=== PATIENT | male | born 1960 | race Caucasian/White ===

== ENCOUNTER 2016-07-07 10:26 | Emergency (ER) | payer OTHER ==
[~2016-07-07] VITALS: Ht 177.8 cm; Wt 75.0 kg
[~2016-07-07 10:26] MED LIST: ASPI81TA19 PO; CLON.5 PO; FOLI1TAB4 PO; GABA300C5 PO; LEVO.075 PO; NITR1SUB3 SL; OXYC-395 PO; PANT40TA3 PO; SERO25TA PO; SERO300T PO; SERT-132 PO; VITA10003 PO
[2016-07-07 10:47] VITALS: BP 134/77; PULSE 94; RESP 18; TEMP 97.8; O2SAT 97
[2016-07-07] MEDS ORDERED: OXYC-395 PO (11:01)
--- NOTE | 2016-07-07 11:01 | PD ---
HPI Chief Complaint: Pain: Acute or Chronic Time Seen by Provider: 10:45 Travel History International Travel<30 days: No Contact w/Intl Traveler<30days: No Traveled to known affect area: No History of Present Illness HPI Patient is a 55-year-old male with history of metastatic pancreatic cancer, presents to emergency room for medication refill. Patient reports that his doctor tried to decrease his dose of oxycodone from 10 mg a 5 mg; reports that the 5 mg dose did not help with his chronic abdominal pain. Reports that he had to double his 5 mg dose of medications to help relief the symptoms. Patient reports that he ran out of his pain medication on Friday and called his doctor for refill, reports that could not get a hold of his doctor to refill his prescription. Reports that his abdominal pain is chronic, requests enough pain medications until he can see his primary care doctor on Friday. Patient with no other complaints. PFSH Past Medical History Hx Anticoagulant Therapy: Yes Arthritis: Yes Autoimmune Disease: No Bipolar Disorder: Yes Anxiety: Yes Depression: Yes Heart Rhythm Problems: No Cancer: Yes (pancreatic) Cardiac Catheterization: Yes Cardiovascular Problems: Yes ([place] X 2) High Cholesterol: Yes Chemotherapy: Yes (06/04/16) Chest Pain: Yes Congestive Heart Failure: No Diabetes: No Diminished Hearing: No Endocrine: No Gastrointestinal Disorders: Yes (BLOOD IN STOOL, OVER A YEAR AGO) Genitourinary: Yes Headaches: Yes Herniated Disk: Yes Hypertension: Yes (ON BP MEDS FOR HEART) Immune Disorder: No Implanted Vascular Access Dvce: Yes (XCELA POWER PORT TO LEFT CHEST October, ) Kidney Stones: Yes Musculoskeletal: Yes Neurologic: Yes Psychiatric: Yes Reproductive: No Respiratory: No Immunizations Current: Yes Migraines: Yes Myocardial Infarction: Yes Pancreatitis: Yes Thyroid Disease: Yes Ulcer: No Influenza Vaccination: Yes ?: Not Past Surgical History Abdominal Surgery: Yes Body Medical Devices: CARDIAC STENTS X2 Cardiac Surgery: Yes Cholecystectomy: Yes Coronary Stent: Yes (X 2) Ear Surgery: No Eye Surgery: No Genitourinary Surgery: No Gynecologic Surgery: No Joint Replacement: No Oral Surgery: Yes Pacemaker: No Tympanostomy Tube: Yes Other Surgery: Yes (whipple procedure j tube) Family History Family Myocardial Infarction: Yes (MOTHER) Social History Alcohol Use: No Tobacco Use: No (2 cigs) Substance Use: No Allergies-Medications (Allergen,Severity, Reaction): Coded Allergies: No Known Allergies (Unverified , 07/07/16) Reported Meds & Prescriptions Reported Meds & Active Scripts Active Oxycodone (Oxycodone HCl) 10 Mg Tab 10 Mg PO Q6H PRN 3 Days Reported Oxycodone (Oxycodone HCl) 10 Mg Tab 10 Mg PO Q4H PRN Sertraline (Sertraline HCl) 50 Mg Tab 150 Mg PO DAILY Seroquel (Quetiapine Fumarate) 300 Mg Tab 150 Mg PO HS Seroquel (Quetiapine Fumarate) 25 Mg Tab 25 Mg PO DAILY Pantoprazole (Pantoprazole Sodium) 40 Mg Tab 40 Mg PO BID Nitroglycerin SL (Nitroglycerin) 0.4 Mg Subl 0.4 Mg SL DIRECTED PRN ONE TABLET UNDER THE TONGUE NEEDED FOR CHEST PAIN, MAY REPEAT EVERY FIVE MINUTES FOR A TOTAL OF 3 DOSES OR CALL 911 IF NO RELIEF Synthroid (Levothyroxine Sodium) 75 Mcg Tab 75 Mcg PO DAILY Gabapentin 300 Mg Cap 300 Mg PO TID Folate (Folic Acid) 1 Mg Tab 1 Mg PO DAILY Klonopin (Clonazepam) 0.5 Mg Tab 0.5 Mg PO TID Vitamin D-3 (Cholecalciferol) 1,000 Unit Tab 1,000 Units PO DAILY Aspir-Low (Aspirin) 81 Mg Tabdr 1 Tab P-ARTICULR DAILY Review of Systems General / Constitutional: No: Fever Eyes: No: Visual changes HENT: No: Headaches Cardiovascular: No: Chest Pain or Discomfort Respiratory: No: Shortness of Breath Gastrointestinal: No: Abdominal Pain Genitourinary: No: Dysuria Musculoskeletal: No: Pain Skin: No Rash Neurologic: No: Weakness Psychiatric: No: Depression Endocrine: No: Polydipsia Hematologic/Lymphatic: No: Easy Bruising Physical Exam Narrative GENERAL: No acute distress, nontoxic SKIN: Warm and dry. HEAD: Atraumatic. Normocephalic. EYES: Pupils equal and round. No scleral icterus. No injection or drainage. ENT: No nasal bleeding or discharge. Mucous membranes pink and moist. CARDIOVASCULAR: Regular rate and rhythm. No murmur appreciated. RESPIRATORY: No accessory muscle use. Clear to auscultation. Breath sounds equal bilaterally. GASTROINTESTINAL: Abdomen soft, non-tender, nondistended. Hepatic and splenic margins not palpable. Data Data Last Documented VS Vital Signs Date Time Temp Pulse Resp B/P Pulse Ox O2 Delivery O2 Flow Rate FiO2 07/07/16 10:47 97.8 94 18 134/77 97 Orders Oxycodone (Roxicodone) (07/07/16 11:00) MDM Medical Decision Making Medical Screen Exam Complete: Yes Emergency Medical Condition: Yes Differential Diagnosis Metastatic pancreatic cancer, pancreatitis, medication refill Narrative Course 55-year-old male with history of metastatic pancreatic cancer, presents to emergency room for medication refill on pain medications. Patient reports that he will be able to see his primary care doctor on Friday and needs enough pain medications until then. Patient reports that pain is chronic in nature, patient does not want a workup in the emergency room, only request prescription for refill Diagnosis Primary Impression: Medication refill Additional Impression: Refill clinic medication management patient Patient Instructions: Narcotic given in the ED, General Instructions Additional Instructions: Please follow-up with your primary care doctor as soon as possible Do not drive or operate heavy machinery while taking pain medication Med/Other Pt SpecificInfo: Prescription(s) given Scripts Oxycodone 10 Mg Tab10 Mg PO Q6H PRN (PAIN) 3 Days Ref 0 Prov:Rosalind Samano DO 07/07/16 Disposition: 01 DISCHARGE HOME Condition: Rosalind Darby DO Jul 07, 2016 11:01
[2016-07-07 11:36] VITALS: RESP 18
== END 2016-07-07 11:36 | disposition home or self-care (01) ==
LOC: PHED 10:26
DX: Z76.0 Encounter for issue of repeat prescription (principal); G89.3 Neoplasm related pain (acute) (chronic); C25.9 Malignant neoplasm of pancreas, unspecified; C79.9 Secondary malignant neoplasm of unspecified site
CPT/HCPCS: 99283

== ENCOUNTER 2016-10-13 18:02 | Emergency (ER) | payer OTHER ==
[~2016-10-13] VITALS: Ht 177.8 cm; Wt 66.8 kg
[2016-10-13 18:10] VITALS: BP 109/86; PULSE 88; RESP 20; TEMP 98.2; O2SAT 98
[2016-10-13] MEDS ORDERED: NUTRLIQ (18:25)
[2016-10-13] MEDS ORDERED: LACT10SO PO (18:25)
[2016-10-13] MEDS ORDERED: CARV6.252 PO (18:25)
[2016-10-13] MEDS ORDERED: CREON12 PO (18:25)
[2016-10-13] MEDS ORDERED: PROM12.54 PO (18:25)
[2016-10-13] MEDS ORDERED: MSIR15 PO (18:25)
[2016-10-13] MEDS ORDERED: LISI2.5T3 PO (18:25)
[2016-10-13] MEDS ORDERED: ONDA1TAB16 PO (18:25)
[2016-10-13] MEDS ORDERED: REGL10TA5 PO (18:25)
[2016-10-13] MEDS ORDERED: TRAM50TA PO ×2 (18:25→18:30)
[2016-10-13] MEDS ORDERED: MORPHINE SULFATE 4 MG/ML INJ IM ONE (18:30)
--- NOTE | 2016-10-13 18:36 | PD ---
HPI Chief Complaint: Pain: Acute or Chronic Time Seen by Provider: 18:32 Travel History International Travel<30 days: No Contact w/Intl Traveler<30days: No Traveled to known affect area: No History of Present Illness HPI 55-year-old male with history of pancreatic cancer and gastroparesis presents the emergency department requesting help with his pain medications. Patient has a prescription for morphine but he is unable to fill it until October 16, as he used a few extra during this past month. He is not requesting refill of his morphine, but is requesting a refill of his tramadol which she has been using to help in the interim. Patient has no other acute complaints. He states he attempted to call his oncologist's office, but he is out of the office until . He has no known drug allergies. PFSH Past Medical History Hx Anticoagulant Therapy: Yes Arthritis: Yes Autoimmune Disease: No Bipolar Disorder: Yes Anxiety: Yes Depression: Yes Heart Rhythm Problems: No Cancer: Yes (pancreatic) Cardiac Catheterization: Yes Cardiovascular Problems: Yes ([place] X 2) High Cholesterol: Yes Chemotherapy: Yes (06/04/16) Chest Pain: Yes Congestive Heart Failure: No Diabetes: No Diminished Hearing: No Endocrine: No Gastrointestinal Disorders: Yes (BLOOD IN STOOL, OVER A YEAR AGO) Genitourinary: Yes Headaches: Yes Herniated Disk: Yes Hypertension: Yes (ON BP MEDS FOR HEART) Immune Disorder: No Implanted Vascular Access Dvce: Yes (XCELA POWER PORT TO LEFT CHEST October, ) Kidney Stones: Yes Musculoskeletal: Yes Neurologic: Yes Psychiatric: Yes Reproductive: No Respiratory: No Immunizations Current: Yes Migraines: Yes Myocardial Infarction: Yes Pancreatitis: Yes Thyroid Disease: Yes Ulcer: No Past Surgical History Abdominal Surgery: Yes Body Medical Devices: CARDIAC STENTS X2 Cardiac Surgery: Yes Cholecystectomy: Yes Coronary Stent: Yes (X 2) Ear Surgery: No Eye Surgery: No Genitourinary Surgery: No Gynecologic Surgery: No Joint Replacement: No Oral Surgery: Yes Pacemaker: No Tympanostomy Tube: Yes Other Surgery: Yes (whipple procedure j tube) Family History Family Myocardial Infarction: Yes (MOTHER) Social History Alcohol Use: No Tobacco Use: No (2 cigs) Substance Use: No Allergies-Medications (Allergen,Severity, Reaction): Coded Allergies: No Known Allergies (Unverified , 10/13/16) Reported Meds & Prescriptions Reported Meds & Active Scripts Active Tramadol (Tramadol HCl) 50 Mg Tab 100 Mg PO Q8H PRN 5 Days Reported Tramadol (Tramadol HCl) 50 Mg Tab Unknown Dose PO Q4H PRN Nutren 1.0 (Nutritional Supplements) 1 Liq Liq Reglan (Metoclopramide HCl) 10 Mg Tab 10 Mg PO DAILY Promethazine (Promethazine HCl) 12.5 Mg Tab 12.5 Mg PO Q6H PRN Ondansetron (Ondansetron HCl) 4 Mg Tab 4 Mg PO Q8H PRN Morphine IR (Morphine Sulfate) 15 Mg Tab 15 Mg PO Q4H Lisinopril 2.5 Mg Tab 2.5 Mg PO DAILY Lactulose Liq (Lactulose) 10 Gm/15 Ml Soln 30 Ml PO Q6H Creon (Amylase/Lipase/Protease) 12,000-38,000-60,000 Units Cap 1 Cap PO TIDPC Carvedilol 6.25 Mg Tab 6.25 Mg PO DAILY Sertraline (Sertraline HCl) 50 Mg Tab 200 Mg PO DAILY Seroquel (Quetiapine Fumarate) 25 Mg Tab 100 Mg PO HS Pantoprazole (Pantoprazole Sodium) 40 Mg Tab 40 Mg PO DAILY Nitroglycerin SL (Nitroglycerin) 0.4 Mg Subl 0.4 Mg SL DIRECTED PRN ONE TABLET UNDER THE TONGUE NEEDED FOR CHEST PAIN, MAY REPEAT EVERY FIVE MINUTES FOR A TOTAL OF 3 DOSES OR CALL 911 IF NO RELIEF Synthroid (Levothyroxine Sodium) 75 Mcg Tab 75 Mcg PO DAILY Folate (Folic Acid) 1 Mg Tab 1 Mg PO DAILY Klonopin (Clonazepam) 0.5 Mg Tab 0.5 Mg PO TID Vitamin D-3 (Cholecalciferol) 1,000 Unit Tab 1,000 Units PO DAILY Aspir-Low (Aspirin) 81 Mg Tabdr 1 Tab P-ARTICULR DAILY Review of Systems Except as stated in HPI: all other systems reviewed are Neg General / Constitutional: No: Fever Eyes: No: Visual changes HENT: No: Headaches Cardiovascular: No: Chest Pain or Discomfort Respiratory: No: Shortness of Breath Gastrointestinal: No: Abdominal Pain Genitourinary: No: Dysuria Musculoskeletal: No: Pain Skin: No Rash Neurologic: No: Weakness Psychiatric: No: Depression Endocrine: No: Polydipsia Hematologic/Lymphatic: No: Easy Bruising Physical Exam Narrative GENERAL: Patient appears uncomfortable SKIN: Warm and dry. Poor color. Normal turgor. HEAD: Atraumatic. Normocephalic. EYES: Pupils equal and round. No scleral icterus. No injection or drainage. ENT: No nasal bleeding or discharge. Mucous membranes pink and moist. Pharynx is normal. NECK: Trachea midline. Supple and nontender CARDIOVASCULAR: Regular rate and rhythm. RESPIRATORY: No accessory muscle use. Clear to auscultation. Breath sounds equal bilaterally. MUSCULOSKELETAL: Extremities without clubbing, cyanosis, or edema. No obvious deformities. NEUROLOGICAL: Awake and alert. No obvious cranial nerve deficits. Motor grossly within normal limits. Five out of 5 muscle strength in the arms and legs. Normal speech. PSYCHIATRIC: Appropriate mood and affect; insight and judgment normal. Data Data Last Documented VS Vital Signs Date Time Temp Pulse Resp B/P Pulse Ox O2 Delivery O2 Flow Rate FiO2 10/13/16 18:10 98.2 88 20 109/86 98 Orders Morphine Inj (Morphine Inj) (10/13/16 18:30) [facility] Medical Decision Making Medical Screen Exam Complete: Yes Emergency Medical Condition: Yes Medical Record Reviewed: Yes Differential Diagnosis Chronic pain secondary to pancreatic cancer and gastroparesis. Need for pain management. Medication refill. Narrative Course Patient is medically stable at time of exam. Patient is discussed with Dr. Harrison, and plan agreed upon. Patient is given 4 mg morphine IM. Patient is given a prescription for tramadol to milligrams tabs he is to take 2 tabs 3 times daily when necessary he was given #30. Patient is to follow-up with his regular doctor as needed. Diagnosis Primary Impression: Medication refill Additional Impression: Recurrent pancreatitis Patient Instructions: General Instructions Additional Instructions: Patient is discussed with Dr. Harrison, and plan agreed upon. Patient is given 4 mg morphine IM. Patient is given a prescription for tramadol to milligrams tabs he is to take 2 tabs 3 times daily when necessary he was given #30. Patient is to follow-up with his regular doctor as needed. Scripts Tramadol 50 Mg Swe522 Mg PO Q8H PRN (PAIN) 5 Days Ref 0 Prov:Vitaliy Matson MD 10/13/16 Disposition: 01 DISCHARGE HOME Condition: Stable Ramses Douglass Oct 13, 2016 18:36
== END 2016-10-13 19:02 | disposition home or self-care (01) ==
LOC: PHEFT 18:02
DX: G89.3 Neoplasm related pain (acute) (chronic) (principal); C25.9 Malignant neoplasm of pancreas, unspecified; K86.1 Other chronic pancreatitis; Z76.0 Encounter for issue of repeat prescription
CPT/HCPCS: 96372; 99283; J2270

== ENCOUNTER 2016-10-15 10:51 | Emergency (ER) | payer OTHER ==
[~2016-10-15] VITALS: Ht 177.8 cm; Wt 75.0 kg
[~2016-10-15 10:51] MED LIST changes: +CARV6.252 PO; +CREON12 PO; -GABA300C5 PO; +LACT10SO PO; +LISI2.5T3 PO; +MSIR15 PO; +NUTRLIQ; +ONDA1TAB16 PO; -OXYC-395 PO; +PROM12.54 PO; +REGL10TA5 PO; -SERO300T PO; +TRAM50TA PO
[2016-10-15 10:54] VITALS: BP 115/77; PULSE 82; RESP 24; TEMP 97.9; O2SAT 100
--- NOTE | 2016-10-15 11:36 | PD ---
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 Patient has history of pancreatic cancer and status post J-tube placement for feeding. Patient states that he was coughing and the balloon displace outside of the abdomen wall this morning. Patient denies any other problem. PFSH Past Medical History Hx Anticoagulant Therapy: Yes Arthritis: Yes Autoimmune Disease: No Bipolar Disorder: Yes Anxiety: Yes Depression: Yes Heart Rhythm Problems: No Cancer: Yes (pancreatic) Cardiac Catheterization: Yes Cardiovascular Problems: Yes ([place] X 2) High Cholesterol: Yes Chemotherapy: Yes (06/04/16) Chest Pain: Yes Congestive Heart Failure: No Diabetes: No Diminished Hearing: No Endocrine: No Gastrointestinal Disorders: Yes (BLOOD IN STOOL, OVER A YEAR AGO) Genitourinary: Yes Headaches: Yes Herniated Disk: Yes Hypertension: Yes (ON BP MEDS FOR HEART) Immune Disorder: No Implanted Vascular Access Dvce: Yes (XCELA POWER PORT TO LEFT CHEST October, ) Kidney Stones: Yes Musculoskeletal: Yes Neurologic: Yes Psychiatric: Yes Reproductive: No Respiratory: No Immunizations Current: Yes Migraines: Yes Myocardial Infarction: Yes Pancreatitis: Yes Thyroid Disease: Yes Ulcer: No Past Surgical History Abdominal Surgery: Yes (whipple) Body Medical Devices: CARDIAC STENTS X2 Cardiac Surgery: Yes Cholecystectomy: Yes Coronary Stent: Yes (X 2) Ear Surgery: No Eye Surgery: No Genitourinary Surgery: No Gynecologic Surgery: No Joint Replacement: No Oral Surgery: Yes Pacemaker: No Tympanostomy Tube: Yes Other Surgery: Yes (whipple procedure j tube) Social History Alcohol Use: No Tobacco Use: Yes Substance Use: No Allergies-Medications (Allergen,Severity, Reaction): Coded Allergies: No Known Allergies (Unverified , 10/15/16) Reported Meds & Prescriptions Reported Meds & Active Scripts Active Tramadol (Tramadol HCl) 50 Mg Tab 100 Mg PO Q8H PRN 5 Days Reported Tramadol (Tramadol HCl) 50 Mg Tab Unknown Dose PO Q4H PRN Nutren 1.0 (Nutritional Supplements) 1 Liq Liq Reglan (Metoclopramide HCl) 10 Mg Tab 10 Mg PO DAILY Promethazine (Promethazine HCl) 12.5 Mg Tab 12.5 Mg PO Q6H PRN Ondansetron (Ondansetron HCl) 4 Mg Tab 4 Mg PO Q8H PRN Morphine IR (Morphine Sulfate) 15 Mg Tab 15 Mg PO Q4H Lisinopril 2.5 Mg Tab 2.5 Mg PO DAILY Lactulose Liq (Lactulose) 10 Gm/15 Ml Soln 30 Ml PO Q6H Creon (Amylase/Lipase/Protease) 12,000-38,000-60,000 Units Cap 1 Cap PO TIDPC Carvedilol 6.25 Mg Tab 6.25 Mg PO DAILY Sertraline (Sertraline HCl) 50 Mg Tab 200 Mg PO DAILY Seroquel (Quetiapine Fumarate) 25 Mg Tab 100 Mg PO HS Pantoprazole (Pantoprazole Sodium) 40 Mg Tab 40 Mg PO DAILY Nitroglycerin SL (Nitroglycerin) 0.4 Mg Subl 0.4 Mg SL DIRECTED PRN ONE TABLET UNDER THE TONGUE NEEDED FOR CHEST PAIN, MAY REPEAT EVERY FIVE MINUTES FOR A TOTAL OF 3 DOSES OR CALL 911 IF NO RELIEF Synthroid (Levothyroxine Sodium) 75 Mcg Tab 75 Mcg PO DAILY Folate (Folic Acid) 1 Mg Tab 1 Mg PO DAILY Klonopin (Clonazepam) 0.5 Mg Tab 0.5 Mg PO TID Vitamin D-3 (Cholecalciferol) 1,000 Unit Tab 1,000 Units PO DAILY Aspir-Low (Aspirin) 81 Mg Tabdr 1 Tab P-ARTICULR DAILY Review of Systems General / Constitutional: No: Fever Eyes: No: Visual changes HENT: No: Headaches Cardiovascular: No: Chest Pain or Discomfort Respiratory: No: Shortness of Breath Gastrointestinal: No: Abdominal Pain Genitourinary: No: Dysuria Musculoskeletal: No: Pain Skin: No Rash Neurologic: No: Weakness Psychiatric: No: Depression Endocrine: No: Polydipsia Hematologic/Lymphatic: No: Easy Bruising Physical Exam Narrative GENERAL: Well-nourished, well-developed patient. SKIN: Focused skin assessment warm/dry. HEAD: Normocephalic. EYES: No scleral icterus. No injection or drainage. NECK: Supple, trachea midline. No JVD or lymphadenopathy. CARDIOVASCULAR: Regular rate and rhythm without murmurs, gallops, or rubs. RESPIRATORY: Breath sounds equal bilaterally. No accessory muscle use. GASTROINTESTINAL: Abdomen soft. The balloon of the J-tube was lying on top of the abdominal wall. MUSCULOSKELETAL: No cyanosis, or edema. BACK: Nontender without obvious deformity. No CVA tenderness. Data Data Last Documented VS Vital Signs Date Time Temp Pulse Resp B/P Pulse Ox O2 Delivery O2 Flow Rate FiO2 10/15/16 10:54 97.9 82 24 115/77 100 Room Air MDM Medical Decision Making Medical Screen Exam Complete: Yes Emergency Medical Condition: Yes Differential Diagnosis Differential diagnosis including J-tube displacement. Narrative Course 55-year-old male with J-tube displacement this morning after coughing. The balloon is lying on top of the skin on the left upper quadrant of the abdomen. J-tube otherwise in place. The balloon was deflated and the J-tube was advanced back into the abdomen. Patient states that he has a lot of pain when I tried to inflate the balloon. When the balloon was deflated only 3 cc in the balloon. 2 cc of fluid was inflated into the balloon and J-tube was taped securely to the abdominal wall. Patient's advised to follow-up with his GI specialist for follow-up. Diagnosis Primary Impression: Dislodged jejunostomy tube Patient Instructions: General Instructions Additional Instructions: Follow with GI specialist. Return if any problem. Med/Other Pt SpecificInfo: No Change to Meds Disposition: 01 DISCHARGE HOME Condition: Stable Hernesto Sheehan MD Oct 15, 2016 11:36
== END 2016-10-15 11:43 | disposition home or self-care (01) ==
LOC: NEPD 10:51
DX: K94.13 Enterostomy malfunction (principal)
CPT/HCPCS: 99282

== ENCOUNTER 2016-10-22 13:56 | Inpatient (IN) | payer OTHER, MEDICARE ==
[2016-10-22 13:58] VITALS: BP 129/87; PULSE 75; RESP 20; TEMP 98.7; O2SAT 100
--- NOTE | 2016-10-22 14:43 | PD ---
Physical Exam Time Seen by Provider: 14:39 Narrative 55 year old male presents to ED for evaluation of his J/G tube. Saw Dr. Francis his GI specialist yesterday and states that the PEG site is infected and will likely need replaced. He is on doxycycline for this. States that the balloon has popped today. Reports 9/10 burning pain; constant. Denies fever or chills. Has medical history of pancreatic cancer, in remission; gastroparesis; otherwise healthy per pt. Data Data Last Documented VS Vital Signs Date Time Temp Pulse Resp B/P Pulse Ox O2 Delivery O2 Flow Rate FiO2 10/22/16 13:58 98.7 75 20 129/87 100 MDM Medical Record Reviewed: Yes Supervised Visit with CHRISTINA: No Narrative Course 55 year old male presents to ED for evaluation of his J/G tube. Appears uncomfortable but not in distress. VSS Condition: Stable [place] Oct 22, 2016 14:42
[2016-10-22 16:29] VITALS: BP 127/86; PULSE 64; RESP 16; O2SAT 99
[2016-10-22] MEDS ORDERED: MIDAZOLAM HCL 5 MG/5 ML VIAL ONE (18:13)
[2016-10-22] MEDS ORDERED: fentaNYL CITRATE 250 MCG/5 ML AMP ONE (18:13)
[2016-10-22] MEDS ORDERED: diphenhydrAMINE HCL 50 MG/ML VIAL ONE (18:29)
--- NOTE | 2016-10-22 18:33 | PD ---
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 Presents with G J-tube complications. He has gastroparesis. He's eating some associates the majority of his nutrition and hydration through his GJ tube. It was last replaced in June by interventional radiology. Several days ago he felt like the balloon had popped out through the skin. It was deflated replaced and then reinflated. The J-tube still appeared to be positioned of the jejunum. It never fully came out. He was having some discomfort at his GI doctors office of a reduced the balloon size some. Today he noticed his balloon popped and he was having some additional discomfort. He also is been having more drainage from around the G-tube site and so his doctor started him on doxycycline. He called his GI doctor and they could not see him for several days. History Past Medical History Narrative Medical Bipolar disorder Coronary disease, [place] Metastatic Pancreatic cancer, status post resection GERD, gastroparesis Hypertension Hyperlipidemia Hypothyroidism Thyroid disease Social History Alcohol Use: No Tobacco Use: Yes Allergies-Medications (Allergen,Severity, Reaction): Coded Allergies: No Known Allergies (Unverified , 10/22/16) Reported Meds & Prescriptions Reported Meds & Active Scripts Active Tramadol (Tramadol HCl) 50 Mg Tab 100 Mg PO Q8H PRN 5 Days Reported Tramadol (Tramadol HCl) 50 Mg Tab Unknown Dose PO Q4H PRN Nutren 1.0 (Nutritional Supplements) 1 Liq Liq Reglan (Metoclopramide HCl) 10 Mg Tab 10 Mg PO DAILY Promethazine (Promethazine HCl) 12.5 Mg Tab 12.5 Mg PO Q6H PRN Ondansetron (Ondansetron HCl) 4 Mg Tab 4 Mg PO Q8H PRN Morphine IR (Morphine Sulfate) 15 Mg Tab 15 Mg PO Q4H Lisinopril 2.5 Mg Tab 2.5 Mg PO DAILY Lactulose Liq (Lactulose) 10 Gm/15 Ml Soln 30 Ml PO Q6H Creon (Amylase/Lipase/Protease) 12,000-38,000-60,000 Units Cap 1 Cap PO TIDPC Carvedilol 6.25 Mg Tab 6.25 Mg PO DAILY Sertraline (Sertraline HCl) 50 Mg Tab 200 Mg PO DAILY Seroquel (Quetiapine Fumarate) 25 Mg Tab 100 Mg PO HS Pantoprazole (Pantoprazole Sodium) 40 Mg Tab 40 Mg PO DAILY Nitroglycerin SL (Nitroglycerin) 0.4 Mg Subl 0.4 Mg SL DIRECTED PRN ONE TABLET UNDER THE TONGUE NEEDED FOR CHEST PAIN, MAY REPEAT EVERY FIVE MINUTES FOR A TOTAL OF 3 DOSES OR CALL 911 IF NO RELIEF Synthroid (Levothyroxine Sodium) 75 Mcg Tab 75 Mcg PO DAILY Folate (Folic Acid) 1 Mg Tab 1 Mg PO DAILY Klonopin (Clonazepam) 0.5 Mg Tab 0.5 Mg PO TID Vitamin D-3 (Cholecalciferol) 1,000 Unit Tab 1,000 Units PO DAILY Aspir-Low (Aspirin) 81 Mg Tabdr 1 Tab P-ARTICULR DAILY Review of Systems Except as stated in HPI: all other systems reviewed are Neg Physical Exam Narrative GENERAL: Well-appearing 55 year-old woman, no acute distress. SKIN: Focused skin assessment warm/dry. CARDIOVASCULAR: Regular rate and rhythm. No murmur appreciated. RESPIRATORY: No accessory muscle use. Clear to auscultation. Breath sounds equal bilaterally. GASTROINTESTINAL: Abdomen is flat and soft. Multiple well-healed surgical scars. GJ-tube in the left costal margin. The balloon is clearly deflated. Still appears to be in place. There is some drainage around the wound. I don' t see any obvious erythema or redness or evidence of active infection. There is a little bit of tenderness at the site. MUSCULOSKELETAL: No obvious deformities. Data Data Last Documented VS Vital Signs Date Time Temp Pulse Resp B/P Pulse Ox O2 Delivery O2 Flow Rate FiO2 10/22/16 16:29 67 18 100 10/22/16 16:29 127/86 Room Air 10/22/16 13:58 98.7 Orders Change Of Gj-Tube (10/22/16 ) Midazolam Inj (Versed Inj) (10/22/16 18:13) Fentanyl Inj (Fentanyl Inj) (10/22/16 18:13) MDM Medical Decision Making Medical Screen Exam Complete: Yes Emergency Medical Condition: Yes Differential Diagnosis G J-tube malfunction, cellulitis, other Narrative Course Medical decision making 55 year-old man is having malfunctioning feeding tube. Some pain around the site. He is on antibiotics. I don't see any active infection now. He is dependent on the G J-tube for feeding and has gastroparesis and would not probably do well with just a G-tube. I spoke with radiology, and will be able to take them for G J-tube replacement. Diagnosis Primary Impression: Feeding tube dysfunction Additional Instructions: Continue feedings through J port. Continue routine G J-tube care. Follow-up with your side laster tack as planned. Return to the emergency department for any new or worsening symptoms. Med/Other Pt SpecificInfo: No Change to Meds Disposition: 01 DISCHARGE HOME Condition: Stable Anuel Palm MD Oct 22, 2016 18:33
[2016-10-22] MEDS ORDERED: MIDAZOLAM HCL 2 MG/2 ML VIAL ONE (19:08)
[2016-10-22] MEDS ORDERED: SODIUM CHLOR 0.9% 1000 ML INJ 1,000 ML IV SCH (19:30)
--- NOTE | 2016-10-22 19:30 | PD.RAD ---
Post Procedure Progress Note Pre Procedure Diagnosis: (1) Dislodged jejunostomy tube (2) Feeding tube dysfunction Post Procedure Diagnosis: (1) Dislodged jejunostomy tube (2) Feeding tube dysfunction Procedure Date: Oct 22, 2016 Supervising Radiologist: Kai Long Proceduralist/Assist: Kalee Gonzalez, RT(R)(), Nataliya Diamond RT(R) Anesthesia: Local, Analgesia, Conscious Sedation Plan of Activity Patient to Unit: Other (ED) Patient Condition: Good See PACS Report for procedural detail/treatment Feeding Tube Gastrostomy Replacement (Unable to advance GJ. Aberrhent anatomy. ) Plan CT scan of abdomen to define anatomy Kai Long MD Oct 22, 2016 19:30
--- NOTE | 2016-10-22 19:32 | PD ---
Data Data Last Documented VS Vital Signs Date Time Temp Pulse Resp B/P Pulse Ox O2 Delivery O2 Flow Rate FiO2 10/22/16 16:29 67 18 100 10/22/16 16:29 127/86 Room Air 10/22/16 13:58 98.7 Orders Midazolam Inj (Versed Inj) (10/22/16 18:13) Fentanyl Inj (Fentanyl Inj) (10/22/16 18:13) Diphenhydramine Inj (Benadryl Inj) (10/22/16 18:29) Fentanyl Inj (Fentanyl Inj) (10/22/16 19:08) Midazolam Inj (Versed Inj) (10/22/16 19:08) Complete Blood Count With Diff (10/22/16 19:20) Comprehensive Metabolic Panel (10/22/16 19:20) Prothrombin Time / Inr (Pt) (10/22/16 19:20) Act Partial Throm Time (Ptt) (10/22/16 19:20) Urinalysis - C+S If Indicated (10/22/16 19:20) Magnesium (Mg) (10/22/16 19:20) Chest, Single Ap (10/22/16 19:20) Iv Access Insert/Monitor (10/22/16 19:20) Ecg Monitoring (10/22/16 19:20) Oximetry (10/22/16 19:20) Sodium Chlor 0.9% 1000 Ml Inj (Ns 1000 M (10/22/16 19:30) Change Of G-Tube Catheter (10/22/16 ) Vital Signs (Adult) Q15MX2,Q30MX2,Q1HX1,Q4H (10/22/16 19:30) ^ Wound Care (10/22/16 19:30) ^ Wound Care (10/22/16 19:30) ^ Flush Tube (10/22/16 19:30) ^ Crush Medications (10/22/16 19:30) Notify Dr: Other (10/22/16 19:30) Notify Dr: Temperature (10/22/16 19:30) Ct Abdomen W/O Iv Contrast (10/22/16 19:33) Place In Observation (10/22/16 ) Vital Signs (Adult) Q4H (10/22/16 19:56) Activity Oob With Assistance (10/22/16 19:56) Director Client Services / Telemetry .CONTINUOUS (10/22/16 19:56) Diet Npo (10/23/16 Breakfast) Sodium Chlor 0.9% 1000 Ml Inj (Ns 1000 M (10/22/16 19:56) Sodium Chloride 0.9% Flush (Ns Flush) (10/22/16 20:00) Sodium Chloride 0.9% Flush (Ns Flush) (10/22/16 21:00) Ondansetron Inj (Zofran Inj) (10/22/16 20:00) Basic Metabolic Panel (Bmp) (10/23/16 06:00) Complete Blood Count With Diff (10/23/16 06:00) Naloxone Inj (Narcan Inj) (10/22/16 20:00) Admit Order (Ed Use Only) (10/22/16 19:56) Invasive Rad Dept Consult (10/22/16 19:59) [facility] Medical Record Reviewed: Yes Supervised Visit with CHRISTINA: No Interpretation(s) Last Impressions Chest X-Ray 10/22/161919 Signed Impressions: Service Date/Time: Saturday, October 22, 2016 19:20 - CONCLUSION: 1. Minimal linear subsegmental atelectasis or scarring right lung base. Remainder of exam unremarkable. Kuaqny-k-Hwcp in superior vena cava. Ulises Stewart MD Narrative Course During the course of the patients emergency department visit, the patients history, examination, and differential diagnosis were reviewed with the patient. The patient had IV access obtained and blood work sent for analysis. The patient was initially seen by Dr. Palm. He reported that the patient had problems with his GJ tube and went to interventional radiology for evaluation and replacement of his tube which was initially placed in June. He explained that the patient should be able to be discharged back home after replacement of the tube. Unfortunately, the interventional radiologist called stating there was some difficulty with placement of the tube. He was able to place a G-tube, however he was not able to place the GJ tube. I spoke to Dr. Long at approximate 7:20 PM regarding this patient. He had taken the patient to the interventional radiology suite for replacement of his GJ tube. He reports that the tube that was in place was withdrawn all the way up into the stomach [place] around. He reports that he was able to remove this. He reports that he was able to pass the guidewire into what he thought was the duodenum, however another GJ tube would not pass. He recommends that the patient be admitted to the hospital, CT scan of the abdomen and pelvis be done, and another attempt will be made at placement tomorrow by interventional radiology with more detailed imaging as the patient has had some alteration of his anatomy related to surgery for cancer. Baseline labs have been ordered. The patient will be admitted to the [facility] service. A call was then placed out to the hospitalist on-call for admission. The patient was initially provided normal saline maintenance fluids of 70 mL per hour. The patient was given fentanyl 25 g IV 1 for pain. The patients laboratory studies were reviewed and remarkable for white count is 7.2, hemoglobin 11.9, platelets 175 with 9.7 monocytes, CMP is remarkable for a BUN of 9, creatinine 0.58, alkaline phosphatase 174, albumin 2.9, PT 11.4 , INR 1.0, PTT 29 point 0.3, urinalysis is unremarkable. Radiology studies were reviewed and remarkable for a chest x-ray that shows minimal linear subsegmental atelectasis or scarring in the right lung base, otherwise unremarkable. CT scan of the abdomen and pelvis shows that there is a soft tissue density or complex fluid around the gastrostomy tube as it enters the left anterior abdominal wall. This is not clearly an abscess. Ultrasound may be helpful to determine if this represents a drainable fluid. Severe fatty infiltration of the liver, postop Whipple by history with a linear radiopaque catheter wire within the distal pancreas, dependent atelectasis in the lungs. The patients results were discussed with the patient, including the plan of care. I explained that further testing and/ or monitoring is indicated based on the patients history, examination, and/ or laboratory findings. Therefore, I recommended admission for additional evaluation. The patient expressed understanding and was agreeable with this plan. The patient was admitted to the hospital in stable condition and sent to a bed under the care of the [facility] service. Physician Communication Physician Communication I spoke to Dr. Long at approximate 7:20 PM regarding this patient. He had taken the patient to the interventional radiology suite for replacement of his GJ tube. He reports that the tube that was in place was withdrawn all the way up into the stomach [place] around. He reports that he was able to remove this. He reports that he was able to pass the guidewire into what he thought was the duodenum, however another GJ tube would not pass. He recommends that the patient be admitted to the hospital, CT scan of the abdomen and pelvis be done, and another attempt will be made at placement tomorrow by interventional radiology with more detailed imaging as the patient has had some alteration of his anatomy related to surgery for cancer. Baseline labs have been ordered. The patient will be admitted to the [facility] hospitalist service. A call was then placed out to the hospitalist on-call for admission. I spoke to Dr. Pineda who did agree to admit the patient for further evaluation and treatment at this time. Diagnosis Primary Impression: Feeding tube dysfunction Qualified Code: T85.598D - Feeding tube dysfunction, subsequent encounter Admitting Information Admitting Physician Requests: Lashawn Seay MD Oct 22, 2016 19:32
[2016-10-22] MEDS ORDERED: ONDANSETRON HCL 4 MG/2 ML VIAL IVP PRN (20:00)
[2016-10-22] MEDS ORDERED: NALOXONE HCL 0.4 MG/ML AMP IV PRN (20:00)
--- NOTE | 2016-10-22 20:10 | RADRPT ---
EXAM DATE/TIME: 10/22/2016 19:20 [facility] COMPARISON: CHEST SINGLE AP, October 29, 2015, 19:27. INDICATIONS : Cough. MEDICAL HISTORY : Carcinoma, pancreas. Myocardial infarction. Hypertension. Smoker. SURGICAL HISTORY : Coronary artery stent. Port placement. ENCOUNTER: Initial ACUITY: 2 days PAIN SCORE: 0/10 LOCATION: Bilateral chest FINDINGS: A single view of the chest demonstrates Lktkui-n-Vamq tip is in minimal subsegmental atelectasis righ t lung base. No effusion. Left lung clear. Heart size normal. Mildly tortuous aorta. CONCLUSION: 1. Minimal linear subsegmental atelectasis or scarring right lung base. Remainder of exam unremarkabl e. Pcpfin-a-Sioz in superior vena cava. Ulises Stewart MD on October 22, 2016 at 20:07 Board Certified Radiologist. This report was verified electronically.
[2016-10-22] MEDS ORDERED: fentaNYL CITRATE 250 MCG/5 ML AMP IV PUSH ONE (20:30)
[2016-10-22] MEDS ORDERED: SERT-129 PO (20:33)
[2016-10-22] MEDS ORDERED: QUET1TAB8 PO (20:33)
[2016-10-22 20:43] VITALS: RESP 18; O2SAT 96
[2016-10-22 20:51] LABS: BLOOD, URINE NEG (NEG); GLUCOSE,URINE NEG (NEG); KETONE, URINE NEG (NEG); NITRITE,URINE NEG (NEG); URINE COLOR YELLOW (YELLW/STRAW)
[2016-10-22 20:52] LABS: APTT (PATIENT) 29.3 SEC (24.3-30.1); PROTHROMBIN TIME - PATIENT 11.4 SEC (9.8-11.6)
[2016-10-22 20:53] LABS: AUTOMATED NEUTROPHIL # 4.1 TH/MM3 (1.8-7.7); BASOPHIL % 0.5 % (0.0-2.0); EOSINOPHIL # 0.2 TH/MM3 (0-0.4); EOSINOPHIL % 2.9 % (0.0-4.0); HEMATOCRIT 35.7 % (39.0-51.0); HEMO FLAGS DIFF FINAL; LYMPH % 30.3 % (9.0-44.0); LYMPHOCYTE # 2.2 TH/MM3 (1.0-4.8); MEAN CELL VOLUME 98.8 FL (80.0-100.0); MEAN CORPUSCULAR HGB CONC 33.4 % (32.0-36.0); MONO % 9.7 % (0.0-8.0); NEUT % 56.6 % (16.0-70.0); PLATELET COUNT 175 TH/MM3 (150-450); RED BLOOD COUNT 3.62 MIL/MM3 (4.50-5.90); RED CELL DISTRIBUTION WIDTH 15.2 % (11.6-17.2); WHITE BLOOD COUNT 7.2 TH/MM3 (4.0-11.0)
[2016-10-22 20:54] LABS: COMMENT (UR) CULT NOT INDICATED; CULTURE IF INDICATED CULT NOT INDICATED
[2016-10-22] MEDS: SODIUM CHLORIDE 0.9% FLUSH 10 ML FLUSH IV FLUSH SCH (21:00)
[2016-10-22 21:05] LABS: ANION GAP 4 MEQ/L (5-15); AST (GOT) 35 U/L (15-37); BICARBONATE 30.9 MEQ/L (21.0-32.0); BLOOD UREA NITROGEN 9 MG/DL (7-18); CHLORIDE 107 MEQ/L (98-107); GLOMERULAR FILTRATION RATE 145 ML/MIN (>89); MAGNESIUM 2.2 MG/DL (1.5-2.5); SODIUM (NA) 142 MEQ/L (136-145)
[2016-10-22 21:09] LABS: ALKALINE PHOSPHATASE 174 U/L (45-117); ALT (GPT) 46 U/L (12-78); TOTAL BILIRUBIN ADULT 0.3 MG/DL (0.2-1.0)
--- NOTE | 2016-10-22 21:22 | RADRPT ---
EXAM DATE/TIME: 10/22/2016 19:44 [facility] COMPARISON: CT PULMONARY ANGIOGRAM, October 29, 2015, 22:59. INDICATIONS : Possible infection around peg tube. ORAL CONTRAST: No oral contrast ingested. RADIATION DOSE: 10.08 CTDIvol (mGy) MEDICAL HISTORY : Cardiovascular disease. Hypertension. Pancreatitis.pancreatic ca SURGICAL HISTORY : whipple December 21 ENCOUNTER: Initial ACUITY: 1 day PAIN SCALE: 8/10 LOCATION: upper quadrant TECHNIQUE: Volumetric scanning of the abdomen was performed. Using automated exposure control and adjustment of the mA and/or kV according to patient size, radiation dose was kept as low as reasonably achievable to obtain optimal diagnostic quality images. FINDINGS: There is linear atelectasis or scarring at the lung bases. Diffuse fatty infiltration of the liver no phillip. Spleen, adrenals unremarkable. Right kidney unremarkable. Multiple left renal cysts. Gastrostomy is present. There is a soft tissue density or complex fluid around the gastrostomy tube w ill measuring about 4 cm in length and about 1.6 cm in AP diameter in the anterior abdominal wall. No free fluid. No bowel obstruction. There are postoperative changes of reported Whipple procedure. There is a linear radiopaque density in the distal pancreas, possibly a pancreatic ductal stent. CONCLUSION: 1. There is soft tissue density or complex fluid around the gastrostomy tube as it enters the left an terior abdominal wall. This is not clearly an abscess. Ultrasound may be helpful to determine if this represents a drainable fluid. 2. Severe fatty infiltration of the liver. Postoperative Whipple by history with a linear radiopaque catheter or wire within the distal pancreas. 3. Dependent atelectasis in the lungs. Ulises Stewart MD on October 22, 2016 at 21:12 Board Certified Radiologist. This report was verified electronically.
[2016-10-22] MEDS: SODIUM CHLOR 0.9% 1000 ML INJ 1,000 ML IV SCH (21:25)
[2016-10-22 21:38] VITALS: BP 107/68; PULSE 53; RESP 18; O2SAT 97
--- NOTE | 2016-10-22 23:02 | RADRPT ---
EXAM DATE/TIME: 10/22/2016 22:23 [facility] COMPARISON: No previous studies available for comparison. EXTERNAL COMPARISON : [facility], PET/CT - TUMOR METABOLISM, October 08, 2016, July 18, 2016, March 12, 2016, Grady gonzalez 2015, October 12, 2015, [facility], US ABDOMEN - COMPLETE, March 14, 2014. INDICATIONS : Abscess near gastrostomy tube seen on CT. MEDICAL HISTORY : Carcinoma, pancreas. Pancreatitis. Renal calculi. DE. Thyroid disease. Syncope. Migraines. Chest ok n. HTN. Blood in stool. Arthritis. Gallstones. Herniated disc. Chronic back pain. Bipolar. Depression . Anxiety. Substance use. Anticoagulant therapy. SURGICAL HISTORY : Coronary artery stent. Cholecystectomy. Tympanostomy tube. Cardiac cath. Whipple procedure J tube. [employer] power port to left chest. Right shoulder surgery. Chemotherapy. ENCOUNTER: Initial ACUITY: 1 day PAIN SCORE: 0/10 LOCATION: Left upper quadrant AREA EVALUATED: Left upper quadrant near gastrostomy tube. FINDINGS: MASSES: None. FLUID COLLECTIONS: Between the stomach and the abdominal wall a small 5 mm depth collection somewhat flat for typical ab scess OTHER: Negative. CONCLUSION: No rounded abscess seen just some fluid between the gastric wall and the rectus muscle. Anuel Hernandez MD on October 22, 2016 at 23:01 Board Certified Radiologist. This report was verified electronically.
[2016-10-23] VITALS (7 sets, daily range): BP systolic 110–114; BP diastolic 66–79; PULSE 53–85; RESP 18–20; TEMP 98.3–99.2; O2SAT 94–98
[2016-10-23] MEDS: HYDROmorphone HCL PF 1 MG/ML VIAL IV PUSH PRN ×4 (02:35→20:45)
[2016-10-23] MEDS: SODIUM CHLOR 0.9% 1000 ML INJ 1,000 ML IV SCH ×2 (06:12→15:56)
[2016-10-23] MEDS: SODIUM CHLORIDE 0.9% FLUSH 10 ML FLUSH IV FLUSH PRN ×2 (08:05→14:20)
[2016-10-23] MEDS: SODIUM CHLORIDE 0.9% FLUSH 10 ML FLUSH IV FLUSH SCH ×2 (08:32→23:34)
[2016-10-23 09:14] LABS: AUTOMATED NEUTROPHIL # 4.8 TH/MM3 (1.8-7.7); BASOPHIL % 0.5 % (0.0-2.0); EOSINOPHIL # 0.3 TH/MM3 (0-0.4); EOSINOPHIL % 4.3 % (0.0-4.0); HEMATOCRIT 35.9 % (39.0-51.0); HEMO FLAGS DIFF FINAL; LYMPH % 19.3 % (9.0-44.0); LYMPHOCYTE # 1.4 TH/MM3 (1.0-4.8); MEAN CELL VOLUME 100.5 FL (80.0-100.0); MEAN CORPUSCULAR HEMOGLOBIN 32.4 PG (27.0-34.0); MEAN CORPUSCULAR HGB CONC 32.3 % (32.0-36.0); MONO % 8.3 % (0.0-8.0); NEUT % 67.6 % (16.0-70.0); PLATELET COUNT 157 TH/MM3 (150-450); RED BLOOD COUNT 3.57 MIL/MM3 (4.50-5.90); RED CELL DISTRIBUTION WIDTH 15.4 % (11.6-17.2); WHITE BLOOD COUNT 7.1 TH/MM3 (4.0-11.0)
[2016-10-23] MEDS ORDERED: PROPOFOL 200 MG/20 ML AMP IV ONE (09:22)
[2016-10-23 09:39] LABS: BICARBONATE 27.5 MEQ/L (21.0-32.0)
--- NOTE | 2016-10-23 13:46 | RADRPT ---
EXAM DATE/TIME: 10/22/2016 17:41 [facility] COMPARISON: No previous studies available for comparison. INDICATIONS : Patient with history of pancreatic cancer in need of GJ tube exchange. MEDICAL HISTORY : Gastroparesis, Migraines, [place], HLD, HTN, Kidney stones, Pancreatitis, Colon polyp, GERD, Metastatic pa ncreatic cancer, Thyroid disease, CAD SURGICAL HISTORY : Cholecystectomy, Colonoscopy, Coronary angioplasty with stent, Whipple, Port placement ENCOUNTER: Subsequent ACUITY: 1 day PAIN SCORE: 8/10 LOCATION: abdomen FLUORO TIME: 29.4 minutes IMAGE SERIES: 0 SEDATION TIME: 75 minutes CONTRAST: 60 cc Omnipaque (iohexol) 350 MEDICATION(S): 1.) 6 mg midazolam (Versed) IV 2.) 300 mcg Fentanyl (Sublimaze) IV 3.) 50 mg Benadryl IV DEVICE(S): 1.) 20 [place] gastrostomy tube PROCEDURE : 1. Fluoroscopically guided gastrostomy tube exchange. 2. Conscious sedation with continuous EKG and oximetry monitoring. The risks, benefits and alternatives to the procedure were explained and verbal and written consent w as obtained. The site was prepped in sterile fashion. Full sterile technique was used, including ca p, mask, sterile gloves and gown and a large sterile sheet. Hand hygiene and 2% chlorhexidine and/or betadine/alcohol prep was utilized per protocol for cutaneous antisepsis. The skin and subcutaneous tissues were infiltrated with local anesthetic solution. Fluoroscopic images of the existing catheter show the transgastric J-tube to be pulled back and coile d in the gastric fundus the tip in the region of the distal body. The catheter was accessed with a wi re and a hockey-stick catheter. However, the existing access appears to be directed towards the GE ju nction and had some difficulty directing the wire towards the antrum. Therefore, a hook catheter was used to facilitate distal positioning of the wire and catheter. Contrast injection showed an unusual configuration of the antrum with minimal contrast entering the r egional small bowel. The distribution of the small bowel is also abnormal without a C-sweep crossing into the left abdomen. Patient does report a previous history of Whipple and the distorted bowel may be associated with the prior surgical intervention. I was eventually able to traverse the distal stomach into the proximal small bowel and advance the ca theter and wire into the small bowel loops. However, I could not get the transgastric-J to follow the tight curves of the small bowel and eventually, the catheter was pushed back into the gastric fundus . At this point, further attempts were abandoned. A 22 [place] G-tube was placed to maintain patency o f the existing dermatotomy. Conscious sedation was performed with the prescribed dosages and duration as above in the presence of an independent trained radiology nurse to assist in the monitoring of the patient. EKG and oximetry remained stable throughout the procedure. The patient tolerated the procedure well and there were n o complications. The patient was sent to post anesthesia recovery in stable condition. CONCLUSION: 1. Distortion of the gastric and small bowel anatomy which may be secondary to the reported history o f a prior Whipple. 2. Because of the orientation of the existing access and the multiple loops of the proximal small bow el, I was unable to advance the transgastric J. sufficiently into the small bowel to secure the ancho ring balloon. In addition, the configuration appears to make the catheter prone to pulling back into the proximal stomach and dislodge the tip from the small bowel. 3. Will obtain a CT scan of the abdomen to define anatomy. Make an additional an additional attempt t o place the GJ tube tomorrow after the scan is reviewed. In addition, because of the patient's inabil ity to hold still and the excessive amounts of sedation required, this will be done with anesthesia a ssistance. Kai Long MD on October 23, 2016 at 13:29 Board Certified Radiologist. This report was verified electronically.
[2016-10-23] MEDS ORDERED: HYDROmorphone HCL PF 1 MG/ML VIAL IV PUSH ONE (14:00)
--- NOTE | 2016-10-23 16:38 | HHI.HP ---
[facility]Staff Admission Diagnosis Malfunctioning G/J tube Diagnoses: Chief Complaint: abdominal pain, malfunctioning G-J tube Travel History International Travel<30 Days: No Contact w/Intl Traveler <30 Da: No Traveled to Known Affected Are: No History of Present Illness 55-year-old male with history of CAD w/stents x2, HTN, pancreatic cancer diagnosed September2015 s/p chemotherapy and Whipple January2016 now reportedly cancer- free, gastroparesis with G-J tube, presents with G-J tube complications. The patient reports he initially presented to the ED on 10/15/16 after he was coughing, changing his dressing, and his G-J tube dislodged through the abdominal wall with the balloon still inflated. He had the G-J tube replaced during that ER visit and he was sent home with instructions to follow up with his opto mechanical technician. Ever since 10/15, he has felt increased fullness around the tube site with constant increasing severe pain and swelling, denies any surrounding drainage/discharge. Denies any fevers/chills, nausea/vomiting, or diarrhea. Denies any chest pain, palpitations, shortness of breath. His oncologist is Dr. Mulligan. He has continued to use his tube feeding supplements Nutren 1.5 with fiber, total 8 bottles per day, usually 2 in the morning then fills with 6 at night prior to bed. He has no other medical complaints at this time. Review of Systems Except as stated in HPI: all other systems reviewed are Neg Past Family Social History Past Medical History CAD w/stents x2 in 2009 and 2011 pancreatic cancer with liver lesion, diagnosed September2015 s/p chemotherapy and Whipple January2016 now reportedly cancer-free gastroparesis Bipolar disorder GERD Hypertension Hyperlipidemia Hypothyroidism Past Surgical History ipple January2016 at [facility] 2016 EGD 2013 Flex sigmoidoscopy 2012 Colonoscopy 2011 Cholecystectomy Coronary angioplasty with stent placement x2 in 2009 and 2011 Right shoulder surgery Reported Medications Tramadol (Tramadol HCl) 50 Mg Tab Unknown Dose PO Q4H PRN Nutren 1.0 (Nutritional Supplements) 1 Liq Liq Reglan (Metoclopramide HCl) 10 Mg Tab 10 Mg PO DAILY Promethazine (Promethazine HCl) 12.5 Mg Tab 12.5 Mg PO Q6H PRN Ondansetron (Ondansetron HCl) 4 Mg Tab 4 Mg PO Q8H PRN Morphine IR (Morphine Sulfate) 15 Mg Tab 15 Mg PO Q4H Lisinopril 2.5 Mg Tab 2.5 Mg PO DAILY Lactulose Liq (Lactulose) 10 Gm/15 Ml Soln 30 Ml PO Q6H Creon (Amylase/Lipase/Protease) 12,000-38,000-60,000 Units Cap 1 Cap PO TIDPC Carvedilol 6.25 Mg Tab 6.25 Mg PO DAILY Sertraline (Sertraline HCl) 50 Mg Tab 200 Mg PO DAILY Seroquel (Quetiapine Fumarate) 25 Mg Tab 100 Mg PO HS Pantoprazole (Pantoprazole Sodium) 40 Mg Tab 40 Mg PO DAILY Nitroglycerin SL (Nitroglycerin) 0.4 Mg Subl 0.4 Mg SL DIRECTED PRN ONE TABLET UNDER THE TONGUE NEEDED FOR CHEST PAIN, MAY REPEAT EVERY FIVE MINUTES FOR A TOTAL OF 3 DOSES OR CALL 911 IF NO RELIEF Synthroid (Levothyroxine Sodium) 75 Mcg Tab 75 Mcg PO DAILY Folate (Folic Acid) 1 Mg Tab 1 Mg PO DAILY Klonopin (Clonazepam) 0.5 Mg Tab 0.5 Mg PO TID Vitamin D-3 (Cholecalciferol) 1,000 Unit Tab 1,000 Units PO DAILY Aspir-Low (Aspirin) 81 Mg Tabdr 1 Tab P-ARTICULR DAILY Allergies: Coded Allergies: No Known Allergies (Unverified , 10/22/16) Active Ordered Medications Current Medications Medications (Trade) Dose Ordered Sig/Balta Route Start Time Stop Time Status Last Admin (NS 1000 ml Inj) 1,000 ml @ 100 mls/hr Q10H IV 10/22/16 19:56 10/23/16 06:12 (NS Flush) 2 ml UNSCH PRN IV FLUSH 10/22/16 20:00 10/23/16 14:20 (NS Flush) 2 ml BID IV FLUSH 10/22/16 21:00 10/23/16 08:32 (Zofran Inj) 4 mg Q6H PRN IVP 10/22/16 20:00 (Narcan Inj) 0.4 mg UNSCH PRN IV 10/22/16 20:00 (Dilaudid Pf Inj) 0.5 mg Q4H PRN IV PUSH 10/23/16 01:30 10/23/16 12:29 Family History Denies any significant family history, including no pancreatic cancer. Social History Smokes 4-5 cigarettes daily Denies any alcohol or illicit drug use Physical Exam Vital Signs Vital Signs Date Time Temp Pulse Resp B/P Pulse Ox O2 Delivery O2 Flow Rate FiO2 10/23/16 11:53 99.0 61 20 113/79 96 10/23/16 09:00 85 10/23/16 07:32 99.2 58 18 114/73 97 10/23/16 07:30 59 10/23/16 05:32 98.9 53 20 110/66 98 10/23/16 03:15 16 10/23/16 03:02 54 10/23/16 01:21 98.3 53 20 114/70 94 10/22/16 21:38 53 18 107/68 97 Room Air 10/22/16 20:43 18 96 Room Air Physical Exam GENERAL: Thin middle aged male patient in [facility]. SKIN: Warm and dry. No rash. HEAD: Normocephalic. Atraumatic. EYES: Pupils equal and round. No scleral icterus. No injection or drainage. ENT: No nasal bleeding or discharge. Mucous membranes pink and moist. NECK: Supple. Trachea midline. CARDIOVASCULAR: Regular rate and rhythm. S1, S2 noted. No murmur appreciated. RESPIRATORY: No accessory muscle use. Clear to auscultation. Breath sounds equal bilaterally. GASTROINTESTINAL: Abdomen soft, nondistended. Normoactive bowel sounds x4. G-J tube site with surrounding edema and fullness, diffusely tender to palpation surrounding tube. MUSCULOSKELETAL: No obvious deformities. Extremities without clubbing, cyanosis , or edema. NEUROLOGICAL: Awake and alert. No obvious cranial nerve deficits. Motor grossly within normal limits. Normal speech. PSYCHIATRIC: Appropriate mood and affect; insight and judgment normal. Laboratory Laboratory Tests Test 10/22/16 10/22/16 10/23/16 20:10 20:20 07:57 White Blood Count 7.2 7.1 Red Blood Count 3.62 3.57 Hemoglobin 11.9 11.6 Hematocrit 35.7 35.9 Mean Corpuscular Volume 98.8 100.5 Mean Corpuscular Hemoglobin 33.0 32.4 Mean Corpuscular Hemoglobin 33.4 32.3 Concent Red Cell Distribution Width 15.2 15.4 Platelet Count 175 157 Mean Platelet Volume 10.2 10.3 Neutrophils (%) (Auto) 56.6 67.6 Lymphocytes (%) (Auto) 30.3 19.3 Monocytes (%) (Auto) 9.7 8.3 Eosinophils (%) (Auto) 2.9 4.3 Basophils (%) (Auto) 0.5 0.5 Neutrophils # (Auto) 4.1 4.8 Lymphocytes # (Auto) 2.2 1.4 Monocytes # (Auto) 0.7 0.6 Eosinophils # (Auto) 0.2 0.3 Basophils # (Auto) 0.0 0.0 CBC Comment DIFF FINAL DIFF FINAL Differential Comment Prothrombin Time 11.4 Prothromb Time International 1.0 Ratio Activated Partial 29.3 Thromboplast Time Sodium Level 142 143 Potassium Level 4.0 4.0 Chloride Level 107 109 Carbon Dioxide Level 30.9 27.5 Anion Gap 4 7 Blood Urea Nitrogen 9 10 Creatinine 0.58 0.59 Estimat Glomerular Filtration 145 143 Rate Random Glucose 83 85 Calcium Level 9.0 8.6 Magnesium Level 2.2 Total Bilirubin 0.3 Aspartate Amino Transf 35 (AST/SGOT) Alanine Aminotransferase 46 (ALT/SGPT) Alkaline Phosphatase 174 Total Protein 6.4 Albumin 2.9 Urine Color YELLOW Urine Turbidity CLEAR Urine pH 7.0 Urine Specific [place] 1.008 Urine Protein NEG Urine Glucose (UA) NEG Urine Ketones NEG Urine Occult Blood NEG Urine Nitrite NEG Urine Bilirubin NEG Urine Urobilinogen LESS THAN 2.0 Urine Leukocyte Esterase NEG Urine RBC LESS THAN 1 Urine WBC LESS THAN 1 Microscopic Urinalysis Comment CULT NOT INDICATED Result Diagram: 10/23/16 0757 10/23/16 0757 Imaging Last Impressions Abdomen CT 10/22/16 193 Signed Impressions: Service Date/Time: Saturday, October 22, 2016 19:44 - CONCLUSION: 1. There is soft tissue density or complex fluid around the gastrostomy tube as it enters the left anterior abdominal wall. This is not clearly an abscess. Ultrasound may be helpful to determine if this represents a drainable fluid. 2. Severe fatty infiltration of the liver. Postoperative Whipple by history with a linear radiopaque catheter or wire within the distal pancreas. 3. Dependent atelectasis in the lungs. Ulises Stewart MD Chest X-Ray 10/22/16 1920 Signed Impressions: Service Date/Time: Saturday, October 22, 2016 19:20 - CONCLUSION: 1. Minimal linear subsegmental atelectasis or scarring right lung base. Remainder of exam unremarkable. [id number] in superior vena cava. Ulises Stewart MD Soft Tissue Ultrasound 10/22/16 0000 Signed Impressions: Service Date/Time: Saturday, October 22, 2016 22:23 - CONCLUSION: No rounded abscess seen just some fluid between the gastric wall and the rectus muscle. Anuel Hernandez MD Catheter Change 10/22/16 0000 Signed Impressions: Service Date/Time: Saturday, October 22, 2016 17:41 - CONCLUSION: 1. Distortion of the gastric and small bowel anatomy which may be secondary to the reported history of a prior Whipple. 2. Because of the orientation of the existing access and the multiple loops of the proximal small bowel, I was unable to advance the transgastric J. sufficiently into the small bowel to secure the anchoring balloon. In addition, the configuration appears to make the catheter prone to pulling back into the proximal stomach and dislodge the tip from the small bowel. 3. Will obtain a CT scan of the abdomen to define anatomy. Make an additional an additional attempt to place the GJ tube tomorrow after the scan is reviewed. In addition, because of the patient's inability to hold still and the excessive amounts of sedation required, this will be done with anesthesia assistance. Kai Long MD Assessment and Plan Problem List: (1) Dislodged jejunostomy tube ICD Code: T85.528A Status: Acute Assessment and Plan 55-year-old male with history of CAD w/stents x2, HTN, pancreatic cancer diagnosed September2015 s/p chemotherapy and Whipple January2016 now reportedly cancer- free, gastroparesis with G-J tube, presents with G-J tube complications. The patient reports he initially presented to the ED on 10/15/16 after he was coughing, changing his dressing, and his G-J tube dislodged through the abdominal wall with the balloon still inflated. He had the G-J tube replaced during that ER visit and he was sent home with instructions to follow up with his opto mechanical technician. Ever since 10/15, he has felt increased fullness around the tube site with constant increasing severe pain and swelling. G-J Tube Malfunction: IR consulted for replacement, first attempt unable to replace tube due to aberrant anatomy, recommend CT. CT abd showed soft tissue density or complex fluid around the gastrostomy tube as it enters the left anterior abdominal wall; not clearly an abscess, recommend ultrasound. Ultrasound soft tissue showed no rounded abscess seen, just some fluid between the gastric wall and the rectus muscle. Dr. Long will attempt to replace the GJ tube under sedation today 10/23. Continue pain control with IV Dilaudid prn, antiemetics as needed. It Engineer consulted to continue tube feeds after replacement. Patient takes Nutren 1.5 with fiber 8bottles/day. Gastroparesis: with GJ tube as above. Continue antiemetics prn. Pancreatic Cancer s/p whipple/chemo: reportedly now cancer free. Outpatient f/ up patient's oncologist Dr. Mulligan. CAD/HTN: chronic, stable, continue patient's home meds including coreg, lisinopril, aspirin. Bipolar/Anxiety: chronic, continue patient's seroquel and klonopin prn. Chronic Pain: patient does see pain management as outpatient (see Dr. Mulligan last note in EMR), continue IV Dilaudid prn for now while NPO. All other medical conditions stable, continue home meds as appropriate. DVT Prophylaxis: teds/SCDs Written by Nataliya Roque, acting as scribe for Dr. Collins on 10/23/16 at 16: 38. Discussed Condition With Patient, CDU RN Attending Statement This note was transcribed by scribe. I, Dr. Josefa Collins personally performed the history, physical exam, and medical decision making; and confirmed the accuracy of the information in the transcribed note. Nataliya Roque PA-C Oct 23, 2016 16:38 Josefa Collins MD November 05, 2016 10:45
[2016-10-23] MEDS ORDERED: clonazePAM 0.5 MG TAB PO PRN (17:30)
[2016-10-23] MEDS: LACTULOSE SYRUP 20 GM/30 ML CUP PO SCH (18:00)
[2016-10-23] MEDS ORDERED: IOHEXOL 350 MG/ML 50 ML BTL (for RAD DIAG) G-TUBE ONE (18:26)
--- NOTE | 2016-10-23 18:26 | PD.RAD ---
Post Procedure Progress Note Pre Procedure Diagnosis: (1) Feeding tube dysfunction Post Procedure Diagnosis: (1) Feeding tube dysfunction Procedure Date: Oct 23, 2016 Supervising Radiologist: Kai Long Proceduralist/Assist: Hafsa Middleton, RT(R)(), Brennon Funes RT(R)() Anesthesia: General Plan of Activity Patient to Unit: PACU Patient Condition: Good See PACS Report for procedural detail/treatment Feeding Tube Gastro/Jejunostomy Placement Albanian: 18 Additional Detail: Pulled old tube Kai Long MD Oct 23, 2016 18:26
[2016-10-23] MEDS: LIPASE/PROTEASE/AMYLASE (12,000/38,000/60,000) CAP PO SCH (18:30)
[2016-10-23] MEDS ORDERED: *morphine SULFATE 8 MG/ML PERIprocedure ONLY ONE (18:42)
[2016-10-23] MEDS ORDERED: MIDAZOLAM HCL 2 MG/2 ML VIAL ONE (18:43)
[2016-10-23] MEDS ORDERED: *HYDROmorphone PF 1 MG VIAL PERIprocedural Use ONLY ONE ×2 (18:49→19:25)
[2016-10-23] MEDS ORDERED: DO NOT ADM ANY ANTICOAGULANT DRUGS PRN (19:15)
[2016-10-23] MEDS ORDERED: QUEtiapine FUMARATE 100 MG TAB PO SCH (21:00)
[2016-10-23] MEDS ORDERED: ACETAMINOPHEN 500 MG CPLT PO PRN (22:45)
[2016-10-23] MEDS ORDERED: MORPHINE SULFATE 15 MG TAB PO SCH (22:45)
[2016-10-23] MEDS: MORPHINE SULFATE 15 MG TAB PO PRN (23:34)
[2016-10-23] MEDS: PILL SPLITTER OTHER PRN (23:35)
[2016-10-24 01:14] VITALS: BP 111/68; PULSE 86; RESP 18; TEMP 98.5; O2SAT 97
[2016-10-24 04:09] VITALS: PULSE 63
[2016-10-24] MEDS: MORPHINE SULFATE 15 MG TAB PO PRN ×4 (04:56→17:22)
[2016-10-24] MEDS: SODIUM CHLOR 0.9% 1000 ML INJ 1,000 ML IV SCH ×2 (05:01→16:01)
[2016-10-24] MEDS: LACTULOSE SYRUP 20 GM/30 ML CUP PO SCH ×3 (05:42→13:15)
[2016-10-24] MEDS ORDERED: LEVOTHYROXINE SODIUM 75 MCG TAB PO SCH (06:00)
[2016-10-24 08:00] VITALS: PULSE 61
[2016-10-24 08:01] VITALS: BP 136/89; PULSE 68; RESP 20; TEMP 98.6; O2SAT 97
[2016-10-24] MEDS ORDERED: ASPIRIN EC 81 MG TABEC PO SCH (09:00)
[2016-10-24] MEDS: SODIUM CHLORIDE 0.9% FLUSH 10 ML FLUSH IV FLUSH SCH (09:00)
[2016-10-24] MEDS ORDERED: SERTRALINE HCL 100 MG TAB PO SCH (09:00)
[2016-10-24] MEDS ORDERED: LISINOPRIL 5 MG TAB PO SCH (09:00)
[2016-10-24] MEDS ORDERED: CARVEDILOL 6.25 MG TAB PO SCH (09:00)
[2016-10-24] MEDS ORDERED: NON-FORMULARY DRUG (Lisinopril 2.5 MG) PO SCH (09:00)
[2016-10-24] MEDS ORDERED: PANTOPRAZOLE SOD 40 MG DELAYED RELEASE TAB PO SCH (09:00)
[2016-10-24] MEDS: LIPASE/PROTEASE/AMYLASE (12,000/38,000/60,000) CAP PO SCH ×2 (09:09→13:15)
[2016-10-24] MEDS: PILL SPLITTER OTHER PRN (09:12)
--- NOTE | 2016-10-24 10:36 | HHI.PR ---
Subjective Remarks Follow-up for GJ tube malfunction. The patient reports his abdominal discomfort and distention have significantly improved since GJ tube replacement yesterday. The patient has had no output from G-tube overnight. The patient states he had a recent EGD a few weeks ago and had a lot of retained food in his stomach at that time due to gastroparesis. Discussed with radiologist, Dr. Long, G tube drainage is normal with the amount of patient's retained gastric contents, may need G-tube drain at [facility], discussed with the patient. Objective Vitals Vital Signs Date Time Temp Pulse Resp B/P Pulse Ox O2 Delivery O2 Flow Rate FiO2 10/24/16 08:01 98.6 68 20 136/89 97 10/24/16 06:13 18 10/24/16 04:09 63 10/24/16 01:14 98.5 86 18 111/68 97 10/23/16 21:20 18 10/23/16 19:45 66 14 106/69 96 10/23/16 19:30 64 14 108/66 95 10/23/16 19:15 97.7 66 14 113/64 97 10/23/16 19:00 61 12 111/69 95 10/23/16 18:45 71 14 115/69 96 10/23/16 18:36 97.5 70 16 126/77 97 10/23/16 11:53 99.0 61 20 113/79 96 I/O 10/23/16 10/23/16 10/23/16 10/24/16 10/24/16 10/24/16 07:00 15:00 23:00 07:00 15:00 23:00 Intake Total 500 ml Output Total 355 ml 1580 ml Balance 145 ml -1580 ml Intake Other 500 ml Output Urine Total 350 ml 1030 ml Gastric Drainage Total 550 ml Estimated Blood Loss 5 ml Result Diagram: 10/23/16 0757 10/23/16 0757 Imaging Last Impressions Abdomen CT 10/22/161932 Signed Impressions: Service Date/Time: Saturday, October 22, 2016 19:44 - CONCLUSION: 1. There is soft tissue density or complex fluid around the gastrostomy tube as it enters the left anterior abdominal wall. This is not clearly an abscess. Ultrasound may be helpful to determine if this represents a drainable fluid. 2. Severe fatty infiltration of the liver. Postoperative Whipple by history with a linear radiopaque catheter or wire within the distal pancreas. 3. Dependent atelectasis in the lungs. Ulises Stewart MD Chest X-Ray 10/22/16 1920 Signed Impressions: Service Date/Time: Saturday, October 22, 2016 19:20 - CONCLUSION: 1. Minimal linear subsegmental atelectasis or scarring right lung base. Remainder of exam unremarkable. [id number] in superior vena cava. Ulises Stewart MD Soft Tissue Ultrasound 10/22/16 0000 Signed Impressions: Service Date/Time: Saturday, October 22, 2016 22:23 - CONCLUSION: No rounded abscess seen just some fluid between the gastric wall and the rectus muscle. Anuel Hernandez MD Catheter Change 10/22/16 0000 Signed Impressions: Service Date/Time: Saturday, October 22, 2016 17:41 - CONCLUSION: 1. Distortion of the gastric and small bowel anatomy which may be secondary to the reported history of a prior Whipple. 2. Because of the orientation of the existing access and the multiple loops of the proximal small bowel, I was unable to advance the transgastric J. sufficiently into the small bowel to secure the anchoring balloon. In addition, the configuration appears to make the catheter prone to pulling back into the proximal stomach and dislodge the tip from the small bowel. 3. Will obtain a CT scan of the abdomen to define anatomy. Make an additional an additional attempt to place the GJ tube tomorrow after the scan is reviewed. In addition, because of the patient's inability to hold still and the excessive amounts of sedation required, this will be done with anesthesia assistance. Kai Long MD Objective Remarks GENERAL: Well-developed fair-nourished. In no acute distress. SKIN: Warm and dry. Previous surgical scars of the right shoulder and abdomen noted. HEENT: Normocephalic. Pupils equal and round. Mucous membranes pink and moist. CARDIOVASCULAR: Regular rate and rhythm. No murmur appreciated. RESPIRATORY: No accessory muscle use. Clear to auscultation. Breath sounds equal bilaterally. GASTROINTESTINAL: Abdomen soft, non-tender, nondistended. Bowel sounds x4. GJ tube in place. G tube with gastric drainage. MUSCULOSKELETAL: No obvious deformities. No clubbing or cyanosis. No edema. NEUROLOGICAL: Awake and alert. No focal neurological deficits. Moves upper and lower extremities spontaneously. Normal speech. PSYCHIATRIC: Appropriate mood and affect; insight and judgment normal. A/P Problem List: (1) Dislodged jejunostomy tube ICD Code: T85.528A Status: Acute Assessment and Plan 55-year-old male with history of CAD w/stents x2, HTN, pancreatic cancer diagnosed September2015 s/p chemotherapy and Whipple January2016 now reportedly cancer- free, gastroparesis with G-J tube, presents with G-J tube complications. The patient reports he initially presented to the ED on 10/15/16 after he was coughing, changing his dressing, and his G-J tube dislodged through the abdominal wall with the balloon still inflated. He had the G-J tube replaced during that ER visit and he was sent home with instructions to follow up with his director of customer service. Ever since 10/15, he has felt increased fullness around the tube site with constant increasing severe pain and swelling. G-J Tube Malfunction: IR consulted for replacement, first attempt unable to replace tube due to aberrant anatomy, recommend CT. CT abd showed soft tissue density or complex fluid around the gastrostomy tube as it enters the left anterior abdominal wall; not clearly an abscess, recommend ultrasound. Ultrasound soft tissue showed no rounded abscess seen, just some fluid between the gastric wall and the rectus muscle. IR/Dr. Long placed the GJ tube under sedation 10/23. Resume home tube feedings as tolerated, patient takes Nutren 1.5 8bottles/day, importer or exporter consulted. Continue pain control with IV Dilaudid prn. Gastroparesis: with GJ tube as above. Continue antiemetics prn. Pancreatic Cancer s/p whipple/chemo: reportedly now cancer free. Outpatient f/ up patient's oncologist Dr. Mulligan. CAD/HTN: chronic, stable, continue patient's home meds including coreg, lisinopril, aspirin. Bipolar/Anxiety: chronic, continue patient's seroquel and klonopin prn. Chronic Pain: patient does see pain management as outpatient (see Dr. Mulligan last note in EMR), continue IV Dilaudid prn for now while NPO. All other medical conditions stable, continue home meds as appropriate. DVT Prophylaxis: teds/SCDs Discussed with Dr. Collins. Discharge Planning Discharge planning if patient is able to tolerate tube feedings. Gumaro Huff Oct 24, 2016 10:36
--- NOTE | 2016-10-24 11:07 | RADRPT ---
EXAM DATE/TIME: 10/23/2016 18:47 [place] COMPARISON: No previous studies available for comparison. INDICATIONS : Patient with hsitory of pancreatic cancer in need of gastrojunal tube placement. MEDICAL HISTORY : Colon polyp, GERD, Metastatic pancreatic cancer, Thyroid disease, CAD SURGICAL HISTORY : Cholecystectomy, Colonoscopy, Coronary angioplasty with stent, Whipple, Port placement ENCOUNTER: Subsequent ACUITY: 2 days PAIN SCORE: 0/10 FLUORO TIME: 7.8 minutes IMAGE SERIES: 4 CONTRAST: 40 cc Omnipaque (iohexol) 350 MEDICATION(S): 1.) General anesthesia DEVICE(S): 1.) 18 Fr gastrojejunostomy tube Anesthesia and pain control was provided by the Anesthesia department. PROCEDURE : 1. Fluoroscopically guided gastrojejunostomy tube placement. 2. Conscious sedation with continuous EKG and oximetry monitoring. The risks, benefits and alternatives to the procedure were explained and verbal and written consent w as obtained. The site was prepped in sterile fashion. Full sterile technique was used, including ca p, mask, sterile gloves and gown and a large sterile sheet. Hand hygiene and 2% chlorhexidine and/or betadine/alcohol prep was utilized per protocol for cutaneous antisepsis. The skin and subcutaneous tissues were infiltrated with local anesthetic solution. Gastric lumen was insufflated with the existing gastrostomy tube. Three percutaneous fasteners were p laced to secure the anterior gastric wall, medial to the existing access. A small incision was made between the fasteners. The stomach was accessed with an 18 gauge needle. A n 0.035 wire was advanced into the small bowel. The tract was dilated. The gastrojejunostomy tube w as introduced through a peel-away sheath. The position was confirmed with an injection of contrast in both the gastric and jejunal lumens. Conscious sedation was performed with the prescribed dosages and duration as above in the presence of an independent trained radiology nurse to assist in the monitoring of the patient. EKG and oximetry remained stable throughout the procedure. The patient tolerated the procedure well and there were n o complications. The patient was sent to post anesthesia recovery in stable condition. CONCLUSION: 1. Uncomplicated gastrojejunostomy tube placement as above. 2. Please note, patient has distorted anatomy due to a prior Whipple procedure with the small bowel a ll localized to the right abdomen. The new access is directed towards the gastric antrum to facilitat e the GJ configuration. 3. Due to marked gastroparesis, the gastric port was left to gravity drainage to prevent gastric cont ents from emanating out of the previous gastrostomy tract. I would maintain gravity drainage until di scharged. Kai Long MD on October 24, 2016 at 11:00 Board Certified Radiologist. This report was verified electronically.
[2016-10-24 11:50] VITALS: BP 130/80; PULSE 62; RESP 20; TEMP 98.7; O2SAT 97
[2016-10-24 15:28] VITALS: BP 134/80; PULSE 59; RESP 20; TEMP 98.4; O2SAT 98
--- NOTE | 2016-10-24 17:35 | HHI.DS ---
Discharge Summary Admission Date Oct 23, 2016 at 16:53 Discharge Date: Oct 24, 2016 Admitting Diagnosis Malfunctioning G/J tube (1) Dislodged jejunostomy tube ICD Code: T85.528A Diagnosis: Principal Procedures GJ tube replacement 10/23 Brief History - From Admission 55-year-old male with history of CAD w/stents x2, HTN, pancreatic cancer diagnosed September2015 s/p chemotherapy and Whipple January2016 now reportedly cancer- free, gastroparesis with G-J tube, presents with G-J tube complications. The patient reports he initially presented to the ED on 10/15/16 after he was coughing, changing his dressing, and his G-J tube dislodged through the abdominal wall with the balloon still inflated. He had the G-J tube replaced during that ER visit and he was sent home with instructions to follow up with his cardiology specialist. Ever since 10/15, he has felt increased fullness around the tube site with constant increasing severe pain and swelling, denies any surrounding drainage/discharge. Denies any fevers/chills, nausea/vomiting, or diarrhea. Denies any chest pain, palpitations, shortness of breath. His oncologist is Dr. Mulligan. He has continued to use his tube feeding supplements Nutren 1.5 with fiber, total 8 bottles per day, usually 2 in the morning then fills with 6 at night prior to bed. He has no other medical complaints at this time. CBC/BMP: 10/23/16 0757 10/23/16 0757 Significant Findings Laboratory Tests Test 10/22/16 10/23/16 20:10 07:57 Red Blood Count 3.62 MIL/MM3 3.57 MIL/MM3 (4.50-5.90) (4.50-5.90) Hemoglobin 11.9 GM/DL 11.6 GM/DL (13.0-17.0) (13.0-17.0) Hematocrit 35.7 % 35.9 % (39.0-51.0) (39.0-51.0) Monocytes (%) (Auto) 9.7 % (0.0-8.0) 8.3 % (0.0-8.0) Anion Gap 4 MEQ/L (5-15) Creatinine 0.58 MG/DL 0.59 MG/DL (0.60-1.30) (0.60-1.30) Alkaline Phosphatase 174 U/L (45-117) Albumin 2.9 GM/DL (3.4-5.0) Mean Corpuscular Volume 100.5 FL (80.0-100.0) Eosinophils (%) (Auto) 4.3 % (0.0-4.0) Chloride Level 109 MEQ/L (98-107) Imaging Last Impressions Gastrostomy Tube Placement 10/23/161958 Signed Impressions: Service Date/Time: Sunday, October 23, 2016 18:47 - CONCLUSION: 1. Uncomplicated gastrojejunostomy tube placement as above. 2. Please note, patient has distorted anatomy due to a prior Whipple procedure with the small bowel all localized to the right abdomen. The new access is directed towards the gastric antrum to facilitate the GJ configuration. 3. Due to marked gastroparesis, the gastric port was left to gravity drainage to prevent gastric contents from emanating out of the previous gastrostomy tract. I would maintain gravity drainage until discharged. Kai Long MD Abdomen CT 10/22/16 193 Signed Impressions: Service Date/Time: Saturday, October 22, 2016 19:44 - CONCLUSION: 1. There is soft tissue density or complex fluid around the gastrostomy tube as it enters the left anterior abdominal wall. This is not clearly an abscess. Ultrasound may be helpful to determine if this represents a drainable fluid. 2. Severe fatty infiltration of the liver. Postoperative Whipple by history with a linear radiopaque catheter or wire within the distal pancreas. 3. Dependent atelectasis in the lungs. Ulises Stewart MD Chest X-Ray 10/22/16 1920 Signed Impressions: Service Date/Time: Saturday, October 22, 2016 19:20 - CONCLUSION: 1. Minimal linear subsegmental atelectasis or scarring right lung base. Remainder of exam unremarkable. [id number]-g-[id number] in superior vena cava. Ulises Stewart MD Soft Tissue Ultrasound 10/22/16 0000 Signed Impressions: Service Date/Time: Saturday, October 22, 2016 22:23 - CONCLUSION: No rounded abscess seen just some fluid between the gastric wall and the rectus muscle. Anuel Hernandez MD Catheter Change 10/22/16 0000 Signed Impressions: Service Date/Time: Saturday, October 22, 2016 17:41 - CONCLUSION: 1. Distortion of the gastric and small bowel anatomy which may be secondary to the reported history of a prior Whipple. 2. Because of the orientation of the existing access and the multiple loops of the proximal small bowel, I was unable to advance the transgastric J. sufficiently into the small bowel to secure the anchoring balloon. In addition, the configuration appears to make the catheter prone to pulling back into the proximal stomach and dislodge the tip from the small bowel. 3. Will obtain a CT scan of the abdomen to define anatomy. Make an additional an additional attempt to place the GJ tube tomorrow after the scan is reviewed. In addition, because of the patient's inability to hold still and the excessive amounts of sedation required, this will be done with anesthesia assistance. Kai Long MD PE at Discharge GENERAL: Well-developed fair-nourished. In no acute distress. SKIN: Warm and dry. Previous surgical scars of the right shoulder and abdomen noted. HEENT: Normocephalic. Pupils equal and round. Mucous membranes pink and moist. CARDIOVASCULAR: Regular rate and rhythm. No murmur appreciated. RESPIRATORY: No accessory muscle use. Clear to auscultation. Breath sounds equal bilaterally. GASTROINTESTINAL: Abdomen soft, non-tender, nondistended. Bowel sounds x4. GJ tube in place. G tube with gastric drainage. MUSCULOSKELETAL: No obvious deformities. No clubbing or cyanosis. No edema. NEUROLOGICAL: Awake and alert. No focal neurological deficits. Moves upper and lower extremities spontaneously. Normal speech. PSYCHIATRIC: Appropriate mood and affect; insight and judgment normal. Pt update on day of discharge Patient reassessed with RN and patient's SO at bedside. Tube feedings were resumed per dietitian recommendations. Patient tolerating tube feedings well. He states abdominal pain is well-controlled and he would like to go home. G tube output continues to decrease since placed yesterday. He plans to follow- up with his PCP, cardiology specialist, and dietitian for further management. Hospital Course 55-year-old male with history of CAD w/stents x2, HTN, pancreatic cancer diagnosed September2015 s/p chemotherapy and Whipple January2016 now reportedly cancer- free, gastroparesis with G-J tube, presents with G-J tube complications. The patient reports he initially presented to the ED on 10/15/16 after he was coughing, changing his dressing, and his G-J tube dislodged through the abdominal wall with the balloon still inflated. He had the G-J tube replaced during that ER visit and he was sent home with instructions to follow up with his cardiology specialist. Ever since 10/15, he had felt increased fullness around the tube site with constant increasing severe pain and swelling. G-J Tube Malfunction: IR consulted for replacement, first attempt unable to replace tube due to aberrant anatomy, recommend CT. CT abd showed soft tissue density or complex fluid around the gastrostomy tube as it enters the left anterior abdominal wall; not clearly an abscess, recommend ultrasound. Ultrasound soft tissue showed no rounded abscess seen, just some fluid between the gastric wall and the rectus muscle. IR/Dr. Long placed the GJ tube under sedation 10/23. Dietitian consulted, appreciate tube feeding recommendations. Patient resumed on tube feedings and tolerated it well. Pt Condition on Discharge: Stable Discharge Disposition: Discharge Home Discharge Time: > 30 minutes Discharge Instructions DIET: Follow Instructions for: On Tube Feeding Additional Diet Instructions: Osmolite 1.0. Start 30 mL per hour and increase by 10 mL/h until goal rate of 80 mL per hour is reached. Follow-up with outpatient dietitian recommendations next week. Activities you can perform: Regular-No Restrictions Follow up Referrals: PCP Follow-up - 3-5 Days with [facility] Continued Medications: Aspirin (Aspir-Low) 81 Mg Tabdr 81 MG PO DAILY Carvedilol (Carvedilol) 6.25 Mg Tab 6.25 MG PO DAILY #60 Ref 0 TAB Cholecalciferol (Vitamin D-3) 1,000 Unit Tab 1000 UNITS PO DAILY #30 Ref 0 TAB Clonazepam (Klonopin) 0.5 Mg Tab 0.5 MG PO TID #90 Ref 0 TAB Folic Acid (Folate) 1 Mg Tab 1 MG PO DAILY Nutritional Supplement Ref 0 TAB Lactulose Liq (Lactulose Liq) 10 Gm/15 Ml Soln 30 ML PO Q6H Ref 0 ML Levothyroxine (Synthroid) 75 Mcg Tab 75 MCG PO DAILY Thyroid #30 Ref 0 TAB Lisinopril (Lisinopril) 2.5 Mg Tab 2.5 MG PO DAILY #30 Ref 0 TAB Metoclopramide (Reglan) 10 Mg Tab 10 MG PO DAILY #120 Ref 0 TAB Morphine IR (Morphine IR) 15 Mg Tab 15 MG PO Q4H PAIN Ref 0 TAB Nitroglycerin SL (Nitroglycerin SL) 0.4 Mg Subl 0.4 MG SL DIRECTED ONE TABLET UNDER THE TONGUE NEEDED FOR CHEST PAIN, MAY REPEAT EVERY FIVE MINUTES FOR A TOTAL OF 3 DOSES OR CALL 911 IF NO RELIEF PRN CHEST PAIN #100 Ref 0 TAB.SL Nutritional Supplements (Nutren 1.0) 1 Liq Liq Ondansetron (Ondansetron) 4 Mg Tab 4 MG PO Q8H PRN PRN Pancrelipase (Creon) 12,000-38,000-60,000 Units Cap 1 CAP PO TIDPC Digestive Aid #90 Ref 0 CAP Pantoprazole (Pantoprazole) 40 Mg Tab 40 MG PO DAILY Reflux #30 Ref 0 TAB Promethazine (Promethazine) 12.5 Mg Tab 12.5 MG PO Q6H PRN NAUSEA OR VOMITING Ref 0 TAB Quetiapine (Quetiapine) 100 Mg Tab 100 MG PO HS #30 Ref 0 TAB Sertraline (Sertraline) 100 Mg Tab 200 MG PO DAILY #30 Ref 0 TAB Tramadol (Tramadol) 50 Mg Tab 50 MG PO Q4H PRN PAIN Ref 0 TAB Gumaro Huff Oct 24, 2016 17:35
== END 2016-10-24 22:35 | disposition home or self-care (01) | DRG 394 ==
LOC: NEPE 13:56 → NEDA 20:00 → NEDH 10-23 → NEPGCP 10-23 00:31 → OBSVTOIN 10-23 16:53
PROVIDERS: ADMIT Hospitalist; ATTEND Hospitalist
PROC: 0D20XUZ Change Feeding Device in Upper Intestinal Tract, External Approach (ICD-10-PCS; principal; 2016-10-23)
DX: K94.13 Enterostomy malfunction (principal); J98.11 Atelectasis; K31.84 Gastroparesis; I10 Essential (primary) hypertension; I25.10 Atherosclerotic heart disease of native coronary artery without angina pectoris; Y83.3 Surgical operation with formation of external stoma as the cause of abnormal reaction of the patient, or of later complication, without mention of misadventure at the time of the procedure; Z95.5 Presence of coronary angioplasty implant and graft; Z85.07 Personal history of malignant neoplasm of pancreas; Z90.411 Acquired partial absence of pancreas; E03.9 Hypothyroidism, unspecified; E78.5 Hyperlipidemia, unspecified; K21.9 Gastro-esophageal reflux disease without esophagitis; G89.29 Other chronic pain; F31.9 Bipolar disorder, unspecified; F41.9 Anxiety disorder, unspecified; F17.210 Nicotine dependence, cigarettes, uncomplicated
CPT/HCPCS: 49440; 49446; 49452; 71010; 74150; 76999; 80048; 80053; 81001; 83735; 85025; 85610; 85730; 86301; 96523; 99152; 99153; 99214; C1769; C1874; C1887; C1894; G0378; G0463; J1170; J1200; J1642; J2250; J2270; J3010; J7030; Q9967

== ENCOUNTER 2016-12-04 10:41 | Emergency (ER) | payer OTHER ==
[~2016-12-04] VITALS: Ht 177.8 cm; Wt 69.3 kg
[~2016-12-04 10:41] MED LIST changes: +QUET1TAB8 PO; -SERO25TA PO; +SERT-129 PO; -SERT-132 PO
[2016-12-04 10:49] VITALS: BP 147/98; PULSE 68; RESP 16; TEMP 97.9; O2SAT 100
[2016-12-04] MEDS ORDERED: CREON12 PO (12:10)
[2016-12-04] MEDS ORDERED: PROT40TA PO (12:10)
[2016-12-04] MEDS ORDERED: MORP1TAB25 PO (12:10)
[2016-12-04] MEDS ORDERED: FOLI400T PO (12:15)
[2016-12-04] MEDS ORDERED: VITA100064 PO (12:15)
--- NOTE | 2016-12-04 12:30 | PD ---
HPI Chief Complaint: Depression Time Seen by Provider: 12:00 Travel History International Travel<30 days: No Contact w/Intl Traveler<30days: No Traveled to known affect area: No History of Present Illness HPI 56 yo M arrives from psychiatrist's office, Dr Lerner, after he verbalized SI to his CHRISTINA. Evidently pt stated he would jump off a porch. To me he denies any actual intent or plan to do such, but does engage with the though now and then, especially today. Approx 13 years prior he ingested a large quantity of lithium , reportedly a suicide attempt and has since not harmed himself. He reports much gratitude generally and many friends nonetheless feels extremely dysphoric occasionally. Modifying factors include pancreas cancer with a gastric tube, limited mobility and chronic pain related to his disease. PFSH Past Medical History Hx Anticoagulant Therapy: Yes Arthritis: Yes Autoimmune Disease: No Bipolar Disorder: Yes Anxiety: Yes Depression: Yes Heart Rhythm Problems: No Cancer: Yes (Pancreatic ) Cardiac Catheterization: Yes Cardiovascular Problems: Yes (VA X 2) High Cholesterol: Yes Chemotherapy: Yes (Last September 2016) Chest Pain: Yes Congestive Heart Failure: No Diabetes: No Diminished Hearing: No Endocrine: No Gastrointestinal Disorders: Yes (Gastroparesis ) Genitourinary: Yes Headaches: Yes Herniated Disk: Yes Hypertension: Yes Implanted Vascular Access Dvce: Yes (Power port left chest ) Musculoskeletal: Yes Neurologic: Yes Psychiatric: Yes Reproductive: No Respiratory: No Myocardial Infarction: Yes Pancreatitis: Yes Thyroid Disease: Yes (Hypo-) Ulcer: No Tetanus Vaccination: > 5 Years Influenza Vaccination: Yes Past Surgical History Abdominal Surgery: Yes (Whipple) Body Medical Devices: Cardiac stents Cardiac Surgery: Yes Cholecystectomy: Yes Coronary Stent: Yes (X's 2) Ear Surgery: No Eye Surgery: No Genitourinary Surgery: No Gynecologic Surgery: No Joint Replacement: No Oral Surgery: Yes Pacemaker: No Other Surgery: Yes (G-J tube ) Family History Family Myocardial Infarction: Yes (Mother) Social History Alcohol Use: No Tobacco Use: Yes (5-6 cigarettes/day ) Substance Use: Yes (Marijuana occ. ) Allergies-Medications (Allergen,Severity, Reaction): Coded Allergies: No Known Allergies (Unverified , 12/04/16) Reported Meds & Prescriptions Reported Meds & Active Scripts Active Reported Vitamin D (Cholecalciferol) 1,000 Unit Tab 1,000 Units PO DAILY Folic Acid 400 Mcg Tab 1 Mg PO DAILY Creon (Amylase/Lipase/Protease) 12,000-38,000-60,000 Units Cap 1 Cap PO DIRECTED Six times daily Protonix (Pantoprazole Sodium) 40 Mg Tab 40 Mg PO DAILY Morphine ER (Morphine Sulfate) 30 Mg Tab 30 Mg PO BID Sertraline (Sertraline HCl) 100 Mg Tab 100 Mg PO DAILY Quetiapine (Quetiapine Fumarate) 100 Mg Tab 100 Mg PO HS Tramadol (Tramadol HCl) 50 Mg Tab 50 Mg PO BID Reglan (Metoclopramide HCl) 10 Mg Tab 10 Mg PO DAILY Promethazine (Promethazine HCl) 12.5 Mg Tab 12.5 Mg PO Q6H PRN Ondansetron (Ondansetron HCl) 4 Mg Tab 4 Mg PO Q8H PRN Lisinopril 2.5 Mg Tab 2.5 Mg PO DAILY Lactulose Liq (Lactulose) 10 Gm/15 Ml Soln 15 Ml PO DAILY Carvedilol 6.25 Mg Tab 3.125 Mg PO DAILY Nitroglycerin SL (Nitroglycerin) 0.4 Mg Subl 0.4 Mg SL DIRECTED PRN ONE TABLET UNDER THE TONGUE NEEDED FOR CHEST PAIN, MAY REPEAT EVERY FIVE MINUTES FOR A TOTAL OF 3 DOSES OR CALL 911 IF NO RELIEF Synthroid (Levothyroxine Sodium) 75 Mcg Tab 75 Mcg PO DAILY Klonopin (Clonazepam) 0.5 Mg Tab 0.5 Mg PO TID Aspir-Low (Aspirin) 81 Mg Tabdr 81 Mg PO DAILY Review of Systems Except as stated in HPI: all other systems reviewed are Neg Physical Exam Narrative GENERAL: 56 yo M, WNWD, pleasant SKIN: Warm and dry. HEAD: Atraumatic. Normocephalic. EYES: Pupils equal and round. No scleral icterus. No injection or drainage. ENT: No nasal bleeding or discharge. Mucous membranes pink and moist. NECK: Trachea midline. No JVD. CARDIOVASCULAR: Regular rate and rhythm. RESPIRATORY: No accessory muscle use. Clear to auscultation. Breath sounds equal bilaterally. GASTROINTESTINAL: Soft. NTND. Gastric tube in place without signs infection. MUSCULOSKELETAL: Extremities without clubbing, cyanosis, or edema. No obvious deformities. NEUROLOGICAL: Awake and alert. No obvious cranial nerve deficits. Motor grossly within normal limits. Five out of 5 muscle strength in the arms and legs. Normal speech. PSYCHIATRIC: To me he states he engages in SI however has no actual intent to harm himself. No HI. No hallucinations. Data Data Last Documented VS Vital Signs Date Time Temp Pulse Resp B/P Pulse Ox O2 Delivery O2 Flow Rate FiO2 12/04/16 10:49 97.9 68 16 147/98 100 VS reviewed Orders Complete Blood Count With Diff (12/04/16 12:29) Comprehensive Metabolic Panel (12/04/16 12:29) Psych Screen (12/04/16 12:29) Drug Screen, Random Urine (12/04/16 12:29) Alcohol (Ethanol) (12/04/16 12:29) Salicylates (Aspirin) (12/04/16 12:29) Tylenol (Acetaminophen) (12/04/16 12:29) Morphine Sr (Oramorph Sr) (12/04/16 13:30) Ondansetron Inj (Zofran Inj) (12/04/16 13:30) Labs Laboratory Tests Test 12/04/16 12/04/16 13:00 13:10 White Blood Count 7.0 TH/MM3 Red Blood Count 4.23 MIL/MM3 Hemoglobin 13.8 GM/DL Hematocrit 41.1 % Mean Corpuscular Volume 97.2 FL Mean Corpuscular Hemoglobin 32.6 PG Mean Corpuscular Hemoglobin 33.6 % Concent Red Cell Distribution Width 13.6 % Platelet Count 154 TH/MM3 Mean Platelet Volume 9.8 FL Neutrophils (%) (Auto) 61.6 % Lymphocytes (%) (Auto) 27.5 % Monocytes (%) (Auto) 8.3 % Eosinophils (%) (Auto) 1.8 % Basophils (%) (Auto) 0.8 % Neutrophils # (Auto) 4.3 TH/MM3 Lymphocytes # (Auto) 1.9 TH/MM3 Monocytes # (Auto) 0.6 TH/MM3 Eosinophils # (Auto) 0.1 TH/MM3 Basophils # (Auto) 0.1 TH/MM3 CBC Comment DIFF FINAL Differential Comment Sodium Level 143 MEQ/L Potassium Level 4.0 MEQ/L Chloride Level 110 MEQ/L Carbon Dioxide Level 27.2 MEQ/L Anion Gap 6 MEQ/L Blood Urea Nitrogen 7 MG/DL Creatinine 0.59 MG/DL Estimat Glomerular Filtration 142 ML/MIN Rate Random Glucose 107 MG/DL Calcium Level 8.9 MG/DL Total Bilirubin 0.3 MG/DL Aspartate Amino Transf 47 U/L (AST/SGOT) Alanine Aminotransferase 43 U/L (ALT/SGPT) Alkaline Phosphatase 204 U/L Total Protein 6.9 GM/DL Albumin 3.2 GM/DL Ethyl Alcohol Level LESS THAN 3 MG/DL Urine Opiates Screen POS Urine Barbiturates Screen NEG Urine Amphetamines Screen NEG Urine Benzodiazepines Screen NEG Urine Cocaine Screen NEG Urine Cannabinoids Screen POS MDM Medical Decision Making Medical Screen Exam Complete: Yes Emergency Medical Condition: Yes Medical Record Reviewed: Yes Differential Diagnosis Altered mental status/psychosis due to infection/environmental exposure/ metabolic abnormality, polypharmacy, alcohol abuse/intoxication, illicit or prescribed drug abuse, malingering/secondary gain, non-organic psychiatric disease Narrative Course CBC & BMP Diagram 12/04/16 13:00 AST 47 Alk phos 204 Albumin 3.2 Urine drug screen + for opiates and cannabinoids EtOH < 3 APAP/Salicylates: both negative Case d/w Dr Lerner who endorses concern for suicidality. He is medically clear for evaluation for our psychiatry service. The history of present illness, ROS, physical exam, review of records and medical workup performed for today's visit have reasonably safely excluded organic etiologies for the patient's presenting complaint. We will continue to monitor the patient carefully in the ER until time of evaluation by the psychiatry service. We are available for any additional medical assistance if needed during the patient's ER course. Disposition per discretion of psychiatry is appreciated. Diagnosis Primary Impression: Suicidal ideation Admitting Information Admitting Physician Requests: Observation Harvey Almonte MD December 04, 2016 12:30
[2016-12-04 13:05] LABS: AUTOMATED NEUTROPHIL # 4.3 TH/MM3 (1.8-7.7); BASOPHIL # 0.1 TH/MM3 (0-0.2); BASOPHIL % 0.8 % (0.0-2.0); EOSINOPHIL # 0.1 TH/MM3 (0-0.4); EOSINOPHIL % 1.8 % (0.0-4.0); HEMATOCRIT 41.1 % (39.0-51.0); HEMO FLAGS DIFF FINAL; LYMPH % 27.5 % (9.0-44.0); LYMPHOCYTE # 1.9 TH/MM3 (1.0-4.8); MEAN CELL VOLUME 97.2 FL (80.0-100.0); MEAN CORPUSCULAR HEMOGLOBIN 32.6 PG (27.0-34.0); MEAN CORPUSCULAR HGB CONC 33.6 % (32.0-36.0); MONO % 8.3 % (0.0-8.0); NEUT % 61.6 % (16.0-70.0); PLATELET COUNT 154 TH/MM3 (150-450); RED BLOOD COUNT 4.23 MIL/MM3 (4.50-5.90); RED CELL DISTRIBUTION WIDTH 13.6 % (11.6-17.2)
[2016-12-04 13:17] LABS: CHLORIDE 110 MEQ/L (98-107); SODIUM (NA) 143 MEQ/L (136-145)
[2016-12-04 13:20] LABS: ANION GAP 6 MEQ/L (5-15); BICARBONATE 27.2 MEQ/L (21.0-32.0)
[2016-12-04 13:21] LABS: BLOOD UREA NITROGEN 7 MG/DL (7-18)
[2016-12-04 13:23] LABS: ALT (GPT) 43 U/L (12-78); AST (GOT) 47 U/L (15-37); GLOMERULAR FILTRATION RATE 142 ML/MIN (>89)
[2016-12-04 13:24] LABS: AMPHETAMINE, URINE NEG (NEG); BARBITURATES, URINE NEG (NEG)
[2016-12-04 13:25] LABS: TOTAL BILIRUBIN ADULT 0.3 MG/DL (0.2-1.0)
[2016-12-04 13:25] LABS: COCAINE, URINE NEG (NEG)
[2016-12-04 13:26] LABS: ALKALINE PHOSPHATASE 204 U/L (45-117)
[2016-12-04] MEDS ORDERED: ONDANSETRON HCL 4 MG/2 ML VIAL IV PUSH ONE (13:30)
[2016-12-04] MEDS ORDERED: MORPHINE SULFATE 30 MG CONTROLLED RELEASE TAB PO ONE (13:30)
[2016-12-04 14:30] VITALS: BP 111/82; PULSE 69; RESP 16; O2SAT 96
[2016-12-04 14:42] LABS: ACETAMINOPHEN 5.2 MCG/ML (10.0-30.0)
[2016-12-04] MEDS ORDERED: SODIUM CHLORIDE 0.9% FLUSH 10 ML FLUSH IVF PRN (15:15)
[2016-12-04 18:46] VITALS: BP 128/88; PULSE 62; RESP 18; TEMP 98.6; O2SAT 98
== END 2016-12-04 22:56 | disposition home or self-care (01) ==
LOC: PHED 10:41 → NEPJ 22:56
DX: R45.851 Suicidal ideations (principal); I10 Essential (primary) hypertension; I25.2 Old myocardial infarction; K31.84 Gastroparesis; F17.210 Nicotine dependence, cigarettes, uncomplicated; Z79.899 Other long term (current) drug therapy
CPT/HCPCS: 80053; 80307; 85025; 96374; 99284; J1642; J2405

== ENCOUNTER 2016-12-06 01:46 | Emergency (ER) | payer OTHER, MEDICAID ==
[2016-12-06] VITALS (7 sets, daily range): BP systolic 157–183; BP diastolic 95–103; PULSE 55–62; RESP 15–20; TEMP 98.1–98.2; O2SAT 97–98
[~2016-12-06] VITALS: Ht 177.8 cm; Wt 66.0 kg
[~2016-12-06 01:46] MED LIST changes: -FOLI1TAB4 PO; +FOLI400T PO; +MORP1TAB25 PO; -MSIR15 PO; -NUTRLIQ; -PANT40TA3 PO; +PROT40TA PO; -VITA10003 PO; +VITA100064 PO
[2016-12-06] MEDS ORDERED: SODIUM CHLOR 0.9% 1000 ML INJ 1,000 ML IV SCH ×2 (02:11→04:30)
[2016-12-06] MEDS ORDERED: ONDANSETRON HCL 4 MG/2 ML VIAL IVP ONE (02:15)
[2016-12-06] MEDS ORDERED: MORPHINE SULFATE 4 MG/ML INJ IV PUSH ONE ×2 (02:15→03:00)
[2016-12-06] MEDS ORDERED: SODIUM CHLORIDE 0.9% FLUSH 10 ML FLUSH IV FLUSH PRN (02:15)
--- NOTE | 2016-12-06 02:16 | PD ---
HPI Chief Complaint: GI Complaint Time Seen by Provider: 02:02 Travel History International Travel<30 days: No Contact w/Intl Traveler<30days: No Traveled to known affect area: No History of Present Illness HPI The patient is a 56-year-old male who has had a Whipple procedure for pancreatic cancer and at 10 PM yesterday he started with nausea and vomiting. He denies any diarrhea. He denies any fever. Apparently he gets episodes of gastroparesis from time to time. PFSH Past Medical History Hx Anticoagulant Therapy: Yes Arthritis: Yes Autoimmune Disease: No Bipolar Disorder: Yes Anxiety: Yes Depression: Yes Heart Rhythm Problems: No Cancer: Yes (Pancreatic ) Cardiac Catheterization: Yes Cardiovascular Problems: Yes (SC X 2) High Cholesterol: Yes Chemotherapy: Yes (Last September 2016) Chest Pain: Yes Congestive Heart Failure: No Diabetes: No Diminished Hearing: No Endocrine: No Gastrointestinal Disorders: Yes (Gastroparesis ) Genitourinary: Yes Headaches: Yes Herniated Disk: Yes Hypertension: Yes Implanted Vascular Access Dvce: Yes (Power port left chest ) Musculoskeletal: Yes Neurologic: Yes Psychiatric: Yes Reproductive: No Respiratory: No Myocardial Infarction: Yes Pancreatitis: Yes Thyroid Disease: Yes (Hypo-) Ulcer: No Tetanus Vaccination: > 5 Years Influenza Vaccination: Yes Past Surgical History Abdominal Surgery: Yes (Whipple) Body Medical Devices: Cardiac stents Cardiac Surgery: Yes Cholecystectomy: Yes Coronary Stent: Yes (X's 2) Ear Surgery: No Eye Surgery: No Genitourinary Surgery: No Gynecologic Surgery: No Joint Replacement: No Oral Surgery: Yes Pacemaker: No Other Surgery: Yes (G-J tube ) Family History Family Myocardial Infarction: Yes (MOTHER) Social History Alcohol Use: No Tobacco Use: Yes (5-6 cigarettes/day ) Substance Use: Yes (Marijuana occ. ) Allergies-Medications (Allergen,Severity, Reaction): Coded Allergies: No Known Allergies (Unverified , 12/06/16) Reported Meds & Prescriptions Reported Meds & Active Scripts Active Oxycodone (Oxycodone HCl) 10 Mg Tab 10 Mg PO Q4H PRN Reported Vitamin D (Cholecalciferol) 1,000 Unit Tab 1,000 Units PO DAILY Folic Acid 400 Mcg Tab 1 Mg PO DAILY Creon (Amylase/Lipase/Protease) 12,000-38,000-60,000 Units Cap 1 Cap PO DIRECTED Six times daily Protonix (Pantoprazole Sodium) 40 Mg Tab 40 Mg PO DAILY Morphine ER (Morphine Sulfate) 30 Mg Tab 30 Mg PO BID Sertraline (Sertraline HCl) 100 Mg Tab 100 Mg PO DAILY Quetiapine (Quetiapine Fumarate) 100 Mg Tab 100 Mg PO HS Tramadol (Tramadol HCl) 50 Mg Tab 50 Mg PO BID Reglan (Metoclopramide HCl) 10 Mg Tab 10 Mg PO DAILY Promethazine (Promethazine HCl) 12.5 Mg Tab 12.5 Mg PO Q6H PRN Ondansetron (Ondansetron HCl) 4 Mg Tab 4 Mg PO Q8H PRN Lisinopril 2.5 Mg Tab 2.5 Mg PO DAILY Lactulose Liq (Lactulose) 10 Gm/15 Ml Soln 15 Ml PO DAILY Carvedilol 6.25 Mg Tab 3.125 Mg PO DAILY Nitroglycerin SL (Nitroglycerin) 0.4 Mg Subl 0.4 Mg SL DIRECTED PRN ONE TABLET UNDER THE TONGUE NEEDED FOR CHEST PAIN, MAY REPEAT EVERY FIVE MINUTES FOR A TOTAL OF 3 DOSES OR CALL 911 IF NO RELIEF Synthroid (Levothyroxine Sodium) 75 Mcg Tab 75 Mcg PO DAILY Klonopin (Clonazepam) 0.5 Mg Tab 0.5 Mg PO TID Aspir-Low (Aspirin) 81 Mg Tabdr 81 Mg PO DAILY Review of Systems Except as stated in HPI: all other systems reviewed are Neg Physical Exam Narrative GENERAL: The patient is alert, oriented 3 in moderate apparent distress with his abdominal discomfort. His vital signs show blood pressure 157/95 but otherwise normal. He does appear to be slightly dehydrated. SKIN: Focused skin assessment warm/dry. HEAD: Atraumatic. Normocephalic. EYES: Pupils equal and round. No scleral icterus. No injection or drainage. ENT: No nasal bleeding or discharge. Mucous membranes pink and moist. NECK: Trachea midline. No JVD. CARDIOVASCULAR: Regular rate and rhythm. No murmur appreciated. RESPIRATORY: No accessory muscle use. Clear to auscultation. Breath sounds equal bilaterally. GASTROINTESTINAL: Abdomen soft, with diffuse abdominal tenderness all 4 quadrants to direct palpation, nondistended. Hepatic and splenic margins not palpable. No guarding or rebound is present. MUSCULOSKELETAL: No obvious deformities. No clubbing. No cyanosis. No edema. NEUROLOGICAL: Awake and alert. No obvious cranial nerve deficits. Motor grossly within normal limits. Normal speech. PSYCHIATRIC: Appropriate mood and affect; insight and judgment normal. Data Data Last Documented VS Vital Signs Date Time Temp Pulse Resp B/P Pulse Ox O2 Delivery O2 Flow Rate FiO2 12/06/16 04:06 55 18 174/103 98 Room Air 12/06/16 01:52 98.1 Orders Complete Blood Count With Diff (12/06/16 02:11) Comprehensive Metabolic Panel (12/06/16 02:11) Urinalysis - C+S If Indicated (12/06/16 02:11) Iv Access Insert/Monitor (12/06/16 02:11) Ecg Monitoring (12/06/16 02:11) Oximetry (12/06/16 02:11) Morphine Inj (Morphine Inj) (12/06/16 02:15) Ondansetron Inj (Zofran Inj) (12/06/16 02:15) Sodium Chlor 0.9% 1000 Ml Inj (Ns 1000 M (12/06/16 02:11) Sodium Chloride 0.9% Flush (Ns Flush) (12/06/16 02:15) Morphine Inj (Morphine Inj) (12/06/16 03:00) Hydromorphone Pf Inj (Dilaudid Pf Inj) (12/06/16 04:00) Ondansetron Inj (Zofran Inj) (12/06/16 04:00) Hydromorphone Pf Inj (Dilaudid Pf Inj) (12/06/16 04:30) Sodium Chlor 0.9% 1000 Ml Inj (Ns 1000 M (12/06/16 04:30) Labs Laboratory Tests Test 12/06/16 02:25 White Blood Count 10.7 TH/MM3 Red Blood Count 4.53 MIL/MM3 Hemoglobin 14.4 GM/DL Hematocrit 43.1 % Mean Corpuscular Volume 95.2 FL Mean Corpuscular Hemoglobin 31.8 PG Mean Corpuscular Hemoglobin 33.3 % Concent Red Cell Distribution Width 13.3 % Platelet Count 187 TH/MM3 Mean Platelet Volume 9.7 FL Neutrophils (%) (Auto) 80.4 % Lymphocytes (%) (Auto) 14.4 % Monocytes (%) (Auto) 3.1 % Eosinophils (%) (Auto) 0.2 % Basophils (%) (Auto) 1.9 % Neutrophils # (Auto) 8.7 TH/MM3 Lymphocytes # (Auto) 1.5 TH/MM3 Monocytes # (Auto) 0.3 TH/MM3 Eosinophils # (Auto) 0.0 TH/MM3 Basophils # (Auto) 0.2 TH/MM3 CBC Comment DIFF FINAL Differential Comment Sodium Level 139 MEQ/L Potassium Level 4.1 MEQ/L Chloride Level 103 MEQ/L Carbon Dioxide Level 28.8 MEQ/L Anion Gap 7 MEQ/L Blood Urea Nitrogen 10 MG/DL Creatinine 0.75 MG/DL Estimat Glomerular Filtration 108 ML/MIN Rate Random Glucose 134 MG/DL Calcium Level 9.6 MG/DL Total Bilirubin 0.6 MG/DL Aspartate Amino Transf 52 U/L (AST/SGOT) Alanine Aminotransferase 54 U/L (ALT/SGPT) Alkaline Phosphatase 214 U/L Total Protein 7.5 GM/DL Albumin 3.8 GM/DL MDM Medical Decision Making Medical Screen Exam Complete: Yes Emergency Medical Condition: Yes Medical Record Reviewed: Yes Interpretation(s) The CBC is normal except for 80% neutrophils. The complete metabolic profile shows a glucose of 134, AST of 52 and alkaline phosphatase of 214 but is otherwise unremarkable. Differential Diagnosis Gastroparesis, small bowel obstruction, dislodged jejunostomy tube, bipolar disorder, dehydration, electrolyte disorder Narrative Course It is now 0430 and the patient is not nauseated. He still has some pain but he can cover with the pain medicine that he has at home. In addition I will give her oxycodone without the Tylenol, he does have some liver enzyme elevations which are possibly due to taking too much Tylenol. Impression: Recurrent abdominal pain, status post Whipple procedure. Diagnosis Primary Impression: Abdominal pain Additional Instructions: The oxycodone is only to be used when there is breakthrough pain. Take your regular medications as prescribed. Follow-up with your primary care physician next week. Med/Other Pt SpecificInfo: Prescription(s) given Scripts Oxycodone 10 Mg Tab10 Mg PO Q4H PRN (PAIN) #20 TAB Ref 0 Prov:Gab Negrete MD 12/06/16 Disposition: 01 DISCHARGE HOME Condition: Stable Gab Negrete MD Dec 06, 2016 02:16
[2016-12-06 02:34] LABS: AUTOMATED NEUTROPHIL # 8.7 TH/MM3 (1.8-7.7); BASOPHIL # 0.2 TH/MM3 (0-0.2); BASOPHIL % 1.9 % (0.0-2.0); EOSINOPHIL % 0.2 % (0.0-4.0); HEMATOCRIT 43.1 % (39.0-51.0); HEMO FLAGS DIFF FINAL; LYMPH % 14.4 % (9.0-44.0); LYMPHOCYTE # 1.5 TH/MM3 (1.0-4.8); MEAN CELL VOLUME 95.2 FL (80.0-100.0); MEAN CORPUSCULAR HEMOGLOBIN 31.8 PG (27.0-34.0); MEAN CORPUSCULAR HGB CONC 33.3 % (32.0-36.0); MONO % 3.1 % (0.0-8.0); NEUT % 80.4 % (16.0-70.0); PLATELET COUNT 187 TH/MM3 (150-450); RED BLOOD COUNT 4.53 MIL/MM3 (4.50-5.90); RED CELL DISTRIBUTION WIDTH 13.3 % (11.6-17.2); WHITE BLOOD COUNT 10.7 TH/MM3 (4.0-11.0)
[2016-12-06 02:44] LABS: CHLORIDE 103 MEQ/L (98-107); POTASSIUM 4.1 MEQ/L (3.5-5.1); SODIUM (NA) 139 MEQ/L (136-145)
[2016-12-06 02:48] LABS: ANION GAP 7 MEQ/L (5-15); BICARBONATE 28.8 MEQ/L (21.0-32.0); BLOOD UREA NITROGEN 10 MG/DL (7-18)
[2016-12-06 02:51] LABS: ALT (GPT) 54 U/L (12-78); AST (GOT) 52 U/L (15-37); GLOMERULAR FILTRATION RATE 108 ML/MIN (>89)
[2016-12-06 02:52] LABS: TOTAL BILIRUBIN ADULT 0.6 MG/DL (0.2-1.0)
[2016-12-06 02:54] LABS: ALKALINE PHOSPHATASE 214 U/L (45-117)
[2016-12-06] MEDS ORDERED: ONDANSETRON HCL 4 MG/2 ML VIAL IV ONE (04:00)
[2016-12-06] MEDS ORDERED: HYDROmorphone HCL PF 1 MG/ML VIAL IVP ONE ×2 (04:00→04:30)
[2016-12-06] MEDS ORDERED: OXYC-395 PO (04:29)
== END 2016-12-06 05:22 | disposition home or self-care (01) ==
LOC: PHED 01:46
DX: R10.84 Generalized abdominal pain (principal); I10 Essential (primary) hypertension; E07.9 Disorder of thyroid, unspecified; Z72.0 Tobacco use; Z98.890 Other specified postprocedural states; Z79.01 Long term (current) use of anticoagulants; Z87.19 Personal history of other diseases of the digestive system; Z87.39 Personal history of other diseases of the musculoskeletal system and connective tissue; Z86.59 Personal history of other mental and behavioral disorders; Z86.79 Personal history of other diseases of the circulatory system; Z87.448 Personal history of other diseases of urinary system; Z86.69 Personal history of other diseases of the nervous system and sense organs
CPT/HCPCS: 80053; 85025; 96361; 96374; 96375; 96376; 99284; J1170; J2270; J2405; J7030

== ENCOUNTER 2017-01-10 12:26 | Emergency (ER) | payer OTHER, MEDICAID ==
[~2017-01-10] VITALS: Ht 177.8 cm; Wt 69.0 kg
[~2017-01-10 12:26] MED LIST changes: +OXYC-395 PO
[2017-01-10 12:30] VITALS: BP 101/70; PULSE 97; RESP 20; O2SAT 100
--- NOTE | 2017-01-10 12:36 | PD ---
Physical Exam Time Seen by Provider: 12:32 Narrative 56yo M c/o vomiting last night and his feeding tube came out his mouth. Says when he pulled on it he could feel it tugging on his feeding tube. Tube currently not in his mouth. Hx gastric paresis. Patient seen in triage. VS reviewed. Awaiting bed placement. Data Data Last Documented VS Vital Signs Date Time Temp Pulse Resp B/P Pulse Ox O2 Delivery O2 Flow Rate FiO2 01/10/17 12:30 97 20 101/70 100 Room Air MDM Supervised Visit with CHRISTINA: Elham Ledezma Jan 10, 2017 12:36
--- NOTE | 2017-01-10 13:13 | PD ---
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 Patient has history of gastroparesis and has feeding tube in place. Patient states that he was throwing up last night and feeling feeding tube displacement in the back of his throat. Patient denies any headache. Patient denies any chest pain or shortness of breath. Patient states that he has history of chronic abdominal pain and it is not new. Patient denies any nausea vomiting diarrhea now. Patient denies any fever chills. PFSH Past Medical History Hx Anticoagulant Therapy: Yes Arthritis: Yes Autoimmune Disease: No Bipolar Disorder: Yes Anxiety: Yes Depression: Yes Heart Rhythm Problems: No Cancer: Yes (Pancreatic ) Cardiac Catheterization: Yes Cardiovascular Problems: Yes (asthma) High Cholesterol: Yes Chemotherapy: Yes (pancreas cancer) Chest Pain: Yes Congestive Heart Failure: No Diabetes: No Diminished Hearing: No Endocrine: No Gastrointestinal Disorders: Yes (Gastroparesis ) Genitourinary: Yes Headaches: Yes Herniated Disk: Yes Hypertension: Yes Implanted Vascular Access Dvce: Yes (Power port left chest ) Musculoskeletal: Yes Neurologic: Yes Psychiatric: Yes Reproductive: No Respiratory: No Myocardial Infarction: Yes Pancreatitis: Yes Thyroid Disease: Yes (Hypo-) Ulcer: No Past Surgical History Abdominal Surgery: Yes (Whipple) Body Medical Devices: Cardiac stents Cardiac Surgery: Yes Cholecystectomy: Yes Coronary Stent: Yes (X's 2) Ear Surgery: No Eye Surgery: No Genitourinary Surgery: No Gynecologic Surgery: No Joint Replacement: No Oral Surgery: Yes Pacemaker: No Other Surgery: Yes (G-J tube ) Family History Family Myocardial Infarction: Yes (MOTHER) Social History Alcohol Use: No Tobacco Use: Yes (5-6 cigarettes/day ) Substance Use: Yes (Marijuana occ. ) Allergies-Medications (Allergen,Severity, Reaction): Coded Allergies: No Known Allergies (Unverified , 01/10/17) Reported Meds & Prescriptions Reported Meds & Active Scripts Active Reported Vitamin D (Cholecalciferol) 1,000 Unit Tab 1,000 Units PO DAILY Folic Acid 400 Mcg Tab 1 Mg PO DAILY Creon (Amylase/Lipase/Protease) 12,000-38,000-60,000 Units Cap 1 Cap PO DIRECTED Six times daily Protonix (Pantoprazole Sodium) 40 Mg Tab 40 Mg PO DAILY Morphine ER (Morphine Sulfate) 30 Mg Tab 30 Mg PO BID Sertraline (Sertraline HCl) 100 Mg Tab 100 Mg PO DAILY Quetiapine (Quetiapine Fumarate) 100 Mg Tab 100 Mg PO HS Tramadol (Tramadol HCl) 50 Mg Tab 50 Mg PO BID Reglan (Metoclopramide HCl) 10 Mg Tab 10 Mg PO DAILY Promethazine (Promethazine HCl) 12.5 Mg Tab 12.5 Mg PO Q6H PRN Ondansetron (Ondansetron HCl) 4 Mg Tab 4 Mg PO Q8H PRN Lisinopril 2.5 Mg Tab 2.5 Mg PO DAILY Lactulose Liq (Lactulose) 10 Gm/15 Ml Soln 15 Ml PO DAILY Carvedilol 6.25 Mg Tab 3.125 Mg PO DAILY Nitroglycerin SL (Nitroglycerin) 0.4 Mg Subl 0.4 Mg SL DIRECTED PRN ONE TABLET UNDER THE TONGUE NEEDED FOR CHEST PAIN, MAY REPEAT EVERY FIVE MINUTES FOR A TOTAL OF 3 DOSES OR CALL 911 IF NO RELIEF Synthroid (Levothyroxine Sodium) 75 Mcg Tab 75 Mcg PO DAILY Klonopin (Clonazepam) 0.5 Mg Tab 0.5 Mg PO TID Aspir-Low (Aspirin) 81 Mg Tabdr 81 Mg PO DAILY Review of Systems General / Constitutional: No: Fever Eyes: No: Visual changes HENT: No: Headaches Cardiovascular: No: Chest Pain or Discomfort Respiratory: No: Shortness of Breath Gastrointestinal: No: Abdominal Pain Genitourinary: No: Dysuria Musculoskeletal: No: Pain Skin: No Rash Neurologic: No: Weakness Psychiatric: No: Depression Endocrine: No: Polydipsia Hematologic/Lymphatic: No: Easy Bruising Physical Exam Narrative GENERAL: Well-nourished, well-developed patient. SKIN: Focused skin assessment warm/dry. HEAD: Normocephalic. EYES: No scleral icterus. No injection or drainage. NECK: Supple, trachea midline. No JVD or lymphadenopathy. CARDIOVASCULAR: Regular rate and rhythm without murmurs, gallops, or rubs. RESPIRATORY: Breath sounds equal bilaterally. No accessory muscle use. GASTROINTESTINAL: Abdomen soft, non-tender, nondistended. Gastric Feeding tube in place. MUSCULOSKELETAL: No cyanosis, or edema. BACK: Nontender without obvious deformity. No CVA tenderness. Neurologic exam normal. Data Data Last Documented VS Vital Signs Date Time Temp Pulse Resp B/P Pulse Ox O2 Delivery O2 Flow Rate FiO2 01/10/17 12:30 97 20 101/70 100 Room Air Orders Abdomen, Kub Only (01/10/17 12:46) MDM Medical Decision Making Medical Screen Exam Complete: Yes Emergency Medical Condition: Yes Differential Diagnosis Differential diagnosis including feeding acute dysfunction, obstruction, displacement. Narrative Course Patient with possible feeding tube dysfunction. Diagnosis Primary Impression: Feeding tube dysfunction Qualified Code: T85.598A - Feeding tube dysfunction, initial encounter Patient Instructions: General Instructions Additional Instructions: Follow-up with personal physician. Continue to use the gastric feeding tube as directed. Med/Other Pt SpecificInfo: No Change to Meds Disposition: 01 DISCHARGE HOME Condition: Stable Hernesto Sheehan MD Jan 10, 2017 13:13
--- NOTE | 2017-01-10 13:17 | RADRPT ---
EXAM DATE/TIME: 01/10/2017 12:47 [facility] COMPARISON: GASTROJEJUNAL TUBE [facility] W/US, October 23, 2016, 18:47. INDICATIONS : Check feeding tube functioning. Patient states coughed up black tip of feeding tube today. MEDICAL HISTORY : Gastroparesis, Carcinoma pancreas SURGICAL HISTORY : Gtube, Infusaport ENCOUNTER: Initial ACUITY: 4 - 6 months PAIN SCORE: 9/10 LOCATION: Abdomen FINDINGS: Supine view of the abdomen was performed. Contrast was placed through the feeding tube. Contrast is s een in the stomach and proximal small bowel. No extravasation of contrast is seen.. CONCLUSION: A feeding tube is within the stomach. Juan Barber MD on January 10, 2017 at 13:15 Board Certified Radiologist. This report was verified electronically.
== END 2017-01-10 13:36 | disposition home or self-care (01) ==
LOC: NEPC 12:26
DX: T85.598A Other mechanical complication of other gastrointestinal prosthetic devices, implants and grafts, initial encounter (principal); K85.90 Acute pancreatitis without necrosis or infection, unspecified; E03.9 Hypothyroidism, unspecified; I10 Essential (primary) hypertension; I25.2 Old myocardial infarction; K31.84 Gastroparesis; E78.00 Pure hypercholesterolemia, unspecified; J45.909 Unspecified asthma, uncomplicated; F17.210 Nicotine dependence, cigarettes, uncomplicated
CPT/HCPCS: 74000; 99283

== ENCOUNTER 2017-04-24 10:03 | Day surgery (SDC) | payer OTHER, MEDICAID ==
[~2017-04-24] VITALS: Ht 177.8 cm; Wt 70.0 kg
[~2017-04-24 10:03] MED LIST changes: -OXYC-395 PO
[2017-04-24] MEDS ORDERED: IOHEXOL 350 MG/ML 50 ML BTL (for RAD DIAG) OTHER ONE (10:04)
[2017-04-24 10:19] VITALS: BP 116/81; PULSE 85; RESP 20; TEMP 97.9; O2SAT 97
--- NOTE | 2017-04-24 11:39 | PD.RAD ---
Post Procedure Progress Note Pre Procedure Diagnosis: (1) Port catheter in place Post Procedure Diagnosis: (1) Port catheter in place Procedure Date: Apr 24, 2017 Supervising Radiologist: Kolton Patel Proceduralist/Assist: Vitaliy Fraga, RT(R), Nataliya Diamond RT(R) Anesthesia: Local Plan of Activity Patient to Unit: ROPU Patient Condition: Good See PACS Report for procedural detail/treatment Kolton Patel MD Apr 24, 2017 11:38
[2017-04-24 11:40] VITALS: BP 113/76; PULSE 68; RESP 18; TEMP 98.3; O2SAT 96
--- NOTE | 2017-04-24 13:14 | RADRPT ---
EXAM DATE/TIME: 04/24/2017 11:32 [facility] COMPARISON: No previous studies available for comparison. INDICATIONS : History left subclavian [id number] placed at outside institution. Patient reports significant es onal pain independent of port use with radicular symptoms in the left upper extremity. MEDICAL HISTORY : Chronic back pain Colon polyp GERD Heart attack/NV HTN Hyperlipidemia Hypothyroidism Metastatic pancreatic cancer Migraine Syncope Asthma Gastroparesis Bipolar High Cholesterol SURGICAL HISTORY : Heart stent Whipple Cholecystectomy Colonoscopy PTCA with stent placement Shoulder biopsy GJ tube insertion Port placement ENCOUNTER: Initial ACUITY: 2 weeks PAIN SCORE: 8/10 LOCATION: Left Shoulder FLUORO TIME: 0.3 minutes IMAGE SERIES: 1 CONTRAST: 1.) 5 cc Omnipaque (iohexol) 350 MEDICATION(S): 1.) 200 units Heparin IV PROCEDURE : 1. Access of [id number]. 2. Port patency injection. The risks, benefits and alternatives to the procedure were explained and verbal and written consent w as obtained. The patient was placed supine. The port was prepped in sterile fashion. Full sterile t echnique was used, including cap, mask, sterile gloves and gown, and a large sterile sheet. Hand hyg iene and 2% chlorhexidine prep was utilized per protocol for cutaneous antisepsis with appropriate dr y time for site. The previously placed port was accessed and positive contrast was injected for evaluation. There is a left subclavian [id number]-[id number] with catheter tip in the central SVC. Port and attached tubing are int act. Port tubing is patent. There is potentially a small thrombus near the catheter tip. Contrast eas gurpreet flows through the SVC into the right atrium. CONCLUSION: 1. Left subclavian Qnhtgu-p-Gytk with catheter tip in the mid SVC. Port and attached tubing are intac t and patent with a small nonflow limiting thrombus at the catheter tip. Central SVC is patent with f low extending into the right atrium. 2. No definitive findings to explain patient's symptomatology. Kolton Patel MD on April 24, 2017 at 13:07 Board Certified Radiologist. This report was verified electronically.
== END 2017-04-24 12:08 | disposition home or self-care (01) ==
LOC: HROP 10:03 → HRIP 10:04 → HROP 12:08
PROVIDERS: ATTEND Surgery
DX: Z45.2 Encounter for adjustment and management of vascular access device (principal); C25.7 Malignant neoplasm of other parts of pancreas; I10 Essential (primary) hypertension
CPT/HCPCS: J1642; Q9967; 36598

== ENCOUNTER 2017-04-26 16:47 | Emergency (ER) | payer OTHER, MEDICAID ==
[~2017-04-26] VITALS: Ht 177.8 cm; Wt 68.0 kg
[2017-04-26 16:57] VITALS: BP 115/82; PULSE 105; RESP 16; TEMP 99.2; O2SAT 99
[2017-04-26] MEDS ORDERED: FENT25T T-DERMAL (17:12)
[2017-04-26] MEDS ORDERED: traMADol HCL 50 MG TAB PO ONE (17:45)
--- NOTE | 2017-04-26 17:50 | PD ---
HPI Chief Complaint: Medication Refill Request Time Seen by Provider: 17:40 Travel History International Travel<30 days: No Contact w/Intl Traveler<30days: No Traveled to known affect area: No History of Present Illness HPI 56-year-old male states that he feels like his fentanyl patch is on his last days and he is wanting to get more pain medication to tide him over until he follows up with his primary doctor on Friday. He states he has pain near his port and just had a steady that showed that it was acting okay and that he needs to schedule an appointment with his oncologist to see if he can have it taken out routinely. He states he's had this pain for a while and also has other chronic pain that he takes a medication for. He states that he is a pancreatic cancer patient. He states that he tried to call his doctor but given its the he needed something to time over as he cannot get through. Patient was seen in the presence of the nurse. PFSH Past Medical History Hx Anticoagulant Therapy: Yes Arthritis: Yes Autoimmune Disease: No Bipolar Disorder: Yes Anxiety: Yes Depression: Yes Heart Rhythm Problems: No Cancer: Yes (Pancreatic ) Cardiac Catheterization: Yes Cardiovascular Problems: Yes (asthma) High Cholesterol: Yes Chemotherapy: Yes (pancreas cancer) Chest Pain: Yes Congestive Heart Failure: No Diabetes: No Diminished Hearing: No Endocrine: No Gastrointestinal Disorders: Yes (Gastroparesis ) Genitourinary: Yes Headaches: Yes Herniated Disk: Yes Hypertension: Yes (ON BP MEDS FOR HEART) Implanted Vascular Access Dvce: Yes (Power port left chest ) Kidney Stones: Yes Musculoskeletal: Yes Neurologic: Yes Psychiatric: Yes Reproductive: No Respiratory: No Immunizations Current: Yes Migraines: Yes Myocardial Infarction: Yes Pancreatitis: Yes Thyroid Disease: Yes (Hypo-) Ulcer: No Tetanus Vaccination: < 5 Years Past Surgical History Abdominal Surgery: Yes (Whipple) AICD: No Body Medical Devices: Cardiac stents Cardiac Surgery: Yes Cholecystectomy: Yes Coronary Stent: Yes (X's 2) Ear Surgery: No Eye Surgery: No Genitourinary Surgery: No Gynecologic Surgery: No Joint Replacement: No Oral Surgery: Yes Pacemaker: No Tympanostomy Tube: Yes Other Surgery: Yes (G-J tube ) Family History Family Myocardial Infarction: Yes (MOTHER) Social History Alcohol Use: No Tobacco Use: Yes (5-6 cigarettes/day ) Substance Use: Yes (Marijuana occ. ) Allergies-Medications (Allergen,Severity, Reaction): Coded Allergies: No Known Allergies (Unverified , 04/26/17) Reported Meds & Prescriptions Reported Meds & Active Scripts Active Reported Duragesic Patch 72 HR (Fentanyl) 25 Mcg/Hr Patch 25 Mcg T-DERMAL Q72H Remove old patch when new one placed. Vitamin D3 (Cholecalciferol) 1,000 Unit Tab 1,000 Units PO DAILY Folic Acid 400 Mcg Tab 1 Mg PO DAILY Creon (Amylase/Lipase/Protease) 12,000-38,000-60,000 Units Cap 1 Cap PO DIRECTED Six times daily Protonix (Pantoprazole Sodium) 40 Mg Tab 40 Mg PO DAILY Sertraline (Sertraline HCl) 100 Mg Tab 100 Mg PO DAILY Quetiapine (Quetiapine Fumarate) 100 Mg Tab 100 Mg PO HS Promethazine (Promethazine HCl) 12.5 Mg Tab 12.5 Mg PO Q6H PRN Ondansetron (Ondansetron HCl) 4 Mg Tab 4 Mg PO Q8H PRN Lisinopril 2.5 Mg Tab 2.5 Mg PO DAILY Lactulose Liq (Lactulose) 10 Gm/15 Ml Soln 15 Ml PO DAILY Carvedilol 6.25 Mg Tab 3.125 Mg PO DAILY Nitroglycerin SL (Nitroglycerin) 0.4 Mg Subl 0.4 Mg SL DIRECTED PRN ONE TABLET UNDER THE TONGUE NEEDED FOR CHEST PAIN, MAY REPEAT EVERY FIVE MINUTES FOR A TOTAL OF 3 DOSES OR CALL 911 IF NO RELIEF Synthroid (Levothyroxine Sodium) 75 Mcg Tab 75 Mcg PO DAILY Klonopin (Clonazepam) 0.5 Mg Tab 0.5 Mg PO TID Aspir-Low (Aspirin) 81 Mg Tabdr 81 Mg PO DAILY Review of Systems Except as stated in HPI: all other systems reviewed are Neg Physical Exam Narrative GENERAL: 68kg male, well-developed patient. SKIN: Warm and dry. no signs of infection noted HEAD: Normocephalic and atraumatic. EYES: No injection or drainage. ENT: No nasal drainage noted. NECK: Supple, trachea midline. CARDIOVASCULAR: Regular rate and rhythm RESPIRATORY: No increased effort. No accessory muscle use. GASTROINTESTINAL: Abdomen nondistended. EXTREMITIES: No edema. NEUROLOGICAL: Awake and alert. Motor and sensory grossly within normal limits. Normal speech. Data Data Last Documented VS Vital Signs Date Time Temp Pulse Resp B/P (MAP) Pulse Ox O2 Delivery O2 Flow Rate FiO2 04/26/17 16:57 99.2 105 16 115/82 (93) 99 Orders Orders Tramadol (Ultram) (04/26/17 17:45) Ed Discharge Order (04/26/17 17:45) MDM Medical Decision Making Medical Screen Exam Complete: Yes Emergency Medical Condition: Yes Medical Record Reviewed: Yes (past history confirm, recent oncology notes if next Staging shows again no recurrent disease he will have port removed) Differential Diagnosis Medication refill, pain management, musculoskeletal Narrative Course Lengthy discussion with patient and I will provide him with one dose of tramadol here and he will have to call his pain management doctor for further pain control. He understands that we do not refill chronic pain medication in the emergency department. Given return instructions. Nurse at bedside Diagnosis Primary Impression: Medication refill Patient Instructions: General Instructions Additional Instructions: Return with any emergent need, call your pain management doctor for further pain medication refills Med/Other Pt SpecificInfo: No Change to Meds Disposition: 01 DISCHARGE HOME Condition: Stable Katherine Bullard MD Apr 26, 2017 17:50
== END 2017-04-26 18:17 | disposition home or self-care (01) ==
LOC: PHEFT 16:47
DX: G89.29 Other chronic pain (principal); C25.9 Malignant neoplasm of pancreas, unspecified; I10 Essential (primary) hypertension; E07.9 Disorder of thyroid, unspecified; E78.00 Pure hypercholesterolemia, unspecified; I25.2 Old myocardial infarction; Z72.0 Tobacco use; Z79.01 Long term (current) use of anticoagulants; Z87.39 Personal history of other diseases of the musculoskeletal system and connective tissue; Z86.59 Personal history of other mental and behavioral disorders; Z86.79 Personal history of other diseases of the circulatory system; Z87.19 Personal history of other diseases of the digestive system; Z87.448 Personal history of other diseases of urinary system; Z86.69 Personal history of other diseases of the nervous system and sense organs
CPT/HCPCS: 99281

== ENCOUNTER 2017-05-23 18:46 | Emergency (ER) | payer OTHER, MEDICAID ==
[~2017-05-23] VITALS: Ht 177.8 cm; Wt 70.1 kg
[~2017-05-23 18:46] MED LIST changes: +FENT25T T-DERMAL; -MORP1TAB25 PO; -ONDA1TAB16 PO; +ONDA4TAB15 PO; -REGL10TA5 PO; -TRAM50TA PO
[2017-05-23 18:53] VITALS: BP 118/74; PULSE 111; RESP 16; TEMP 98; O2SAT 99
[2017-05-23] MEDS ORDERED: CLON0.5T PO (19:05)
[2017-05-23] MEDS ORDERED: ACETAMINOPHEN/HYDROcodone 325 MG/5 MG TAB PO ONE (19:15)
[2017-05-23] MEDS ORDERED: KETOROLAC TROMETHAMINE 60 MG/2 ML (IM) VIAL IM ONE (19:15)
--- NOTE | 2017-05-23 19:16 | PD ---
HPI Chief Complaint: Medication Refill Request Time Seen by Provider: 19:13 Travel History International Travel<30 days: No Contact w/Intl Traveler<30days: No Traveled to known affect area: No History of Present Illness HPI This patient has chronic pain and months a morphine shot. He says he can't get his medications filled prescribed by his pain management physician. He denies any acute problem. Severity looks mild PFSH Past Medical History Hx Anticoagulant Therapy: Yes (BABY ASA ) Arthritis: Yes Autoimmune Disease: No Bipolar Disorder: Yes Anxiety: Yes Depression: Yes Heart Rhythm Problems: No Cancer: Yes (Pancreatic ) Cardiac Catheterization: Yes Cardiovascular Problems: Yes (ID TIMES 2 WITH STENTS) High Cholesterol: Yes Chemotherapy: Yes (pancreas cancer) Chest Pain: Yes Congestive Heart Failure: No Diabetes: No Diminished Hearing: No Endocrine: No Gastrointestinal Disorders: Yes (Gastroparesis ) Genitourinary: Yes Headaches: Yes Herniated Disk: Yes Hypertension: Yes (ON BP MEDS FOR HEART) Implanted Vascular Access Dvce: Yes (Power port left chest ) Kidney Stones: Yes Musculoskeletal: Yes Neurologic: Yes Psychiatric: Yes Reproductive: No Respiratory: No Immunizations Current: Yes Migraines: Yes Myocardial Infarction: Yes Pancreatitis: Yes Thyroid Disease: Yes (Hypo-) Ulcer: No Past Surgical History Abdominal Surgery: Yes (Whipple) AICD: No Body Medical Devices: Cardiac stents Cardiac Surgery: Yes Cholecystectomy: Yes Coronary Stent: Yes (X's 2) Ear Surgery: No Eye Surgery: No Genitourinary Surgery: No Gynecologic Surgery: No Joint Replacement: No Oral Surgery: Yes Pacemaker: No Tympanostomy Tube: Yes Other Surgery: Yes (G-J tube ) Family History Family Myocardial Infarction: Yes (MOTHER) Social History Alcohol Use: No Tobacco Use: Yes Substance Use: Yes (Marijuana occ. ) Allergies-Medications (Allergen,Severity, Reaction): Coded Allergies: No Known Allergies (Unverified Adverse Reaction, Unknown, 05/23/17) Reported Meds & Prescriptions Reported Meds & Active Scripts Active Reported Clonazepam 0.5 Mg Tab 0.5 Mg PO BID Vitamin D3 (Cholecalciferol) 1,000 Unit Tab 1,000 Units PO DAILY Folic Acid 400 Mcg Tab 1 Mg PO DAILY Creon (Amylase/Lipase/Protease) 12,000-38,000-60,000 Units Cap 1 Cap PO DIRECTED Six times daily Protonix (Pantoprazole Sodium) 40 Mg Tab 40 Mg PO DAILY Sertraline (Sertraline HCl) 100 Mg Tab 100 Mg PO DAILY Quetiapine (Quetiapine Fumarate) 100 Mg Tab 100 Mg PO HS Promethazine (Promethazine HCl) 12.5 Mg Tab 12.5 Mg PO Q6H PRN Ondansetron (Ondansetron HCl) 4 Mg Tab 4 Mg PO Q8H PRN Lisinopril 2.5 Mg Tab 2.5 Mg PO DAILY Carvedilol 6.25 Mg Tab 3.125 Mg PO DAILY Nitroglycerin SL (Nitroglycerin) 0.4 Mg Subl 0.4 Mg SL DIRECTED PRN ONE TABLET UNDER THE TONGUE NEEDED FOR CHEST PAIN, MAY REPEAT EVERY FIVE MINUTES FOR A TOTAL OF 3 DOSES OR CALL 911 IF NO RELIEF Synthroid (Levothyroxine Sodium) 75 Mcg Tab 75 Mcg PO DAILY Aspir-Low (Aspirin) 81 Mg Tabdr 81 Mg PO DAILY Review of Systems General / Constitutional: No: Fever HENT: No: Headaches Cardiovascular: No: Chest Pain or Discomfort Physical Exam Narrative GASTROINTESTINAL: Abdomen soft, non-tender, nondistended. Positive bowel sounds. No hepato-splenomegaly, or palpable masses. No guarding. SKIN: Focused skin assessment reveals no rash or ulcers. Skin is warm and dry. Palpation shows no induration or nodules. Data Data Last Documented VS Vital Signs Date Time Temp Pulse Resp B/P (MAP) Pulse Ox O2 Delivery O2 Flow Rate FiO2 05/23/17 18:53 98.0 111 16 118/74 (89) 99 Orders Orders Ketorolac Inj (Toradol Inj) (05/23/17 19:15) Acetamin-Hydrocod 325-5 Mg ([place] 5-325 (05/23/17 19:15) [facility] Medical Decision Making Medical Screen Exam Complete: Yes Emergency Medical Condition: Yes Medical Record Reviewed: Yes Differential Diagnosis Chronic pain, narcotic seeking behavior, cancer pain Narrative Course I have reviewed the patient's electronic medical record. Patient's been here before seeking pain medications and was advised we do not fill chronic pain medicine needs I'm giving him 1 Lortab and one Toradol injection but no prescription He should've discussed this with his pain management physician who prescribed the medication he cannot seem to get filled Diagnosis Primary Impression: Chronic pain disorder Additional Instructions: The patient was advised to follow up with their physician and return if they worsen. Med/Other Pt SpecificInfo: Other Disposition: 01 DISCHARGE HOME Condition: Stable Chaz Alcazar MD May 23, 2017 19:16
== END 2017-05-23 19:55 | disposition home or self-care (01) ==
LOC: PHEFT 18:46
DX: G89.29 Other chronic pain (principal); F17.210 Nicotine dependence, cigarettes, uncomplicated; F12.90 Cannabis use, unspecified, uncomplicated
CPT/HCPCS: 96372; 99284; J1885

== ENCOUNTER 2017-06-22 17:55 | Inpatient (IN) | payer OTHER, MEDICARE ==
[~2017-06-22] VITALS: Ht 177.8 cm; Wt 77.4 kg
[2017-06-22] VITALS (8 sets, daily range): BP systolic 82–120; BP diastolic 58–84; PULSE 103–130; RESP 18–20; TEMP 97.4–97.8; O2SAT 97–99
[~2017-06-22 17:55] MED LIST changes: -CLON.5 PO; +CLON0.5T PO; -FENT25T T-DERMAL; -LACT10SO PO
[2017-06-22] MEDS ORDERED: SODIUM CHLOR 0.9% 1000 ML INJ 1,000 ML IV SCH (18:24)
[2017-06-22] MEDS ORDERED: SODIUM CHLORIDE 0.9% FLUSH 10 ML FLUSH IV FLUSH PRN ×2 (18:30→21:00)
[2017-06-22] MEDS ORDERED: MORPHINE SULFATE 8 MG/ML INJ IV PUSH ONE (18:30)
[2017-06-22] MEDS ORDERED: ONDANSETRON HCL 4 MG/2 ML VIAL IVP ONE (18:30)
--- NOTE | 2017-06-22 18:34 | PD ---
HPI Chief Complaint: Abdominal Pain Time Seen by Provider: 18:11 Travel History International Travel<30 days: No Contact w/Intl Traveler<30days: No Traveled to known affect area: No History of Present Illness HPI The patient is a 56-year-old male who presents to the emergency department for abdominal pain. The patient has a history of pancreatic cancer with metastasis that was previously treated with chemotherapy. The patient is followed by his oncologist, Dr. Mulligan. The patient states he is chronically on morphine 30 mg 3 times a day as needed for pain, states he ran out of his morphine. He saw his primary physician who prescribed a few pills until he can see Dr. Mulligan. However, his appointment with Dr. Mulligan was changed and he can receive a CT of the abdomen and pelvis on 19 June to evaluate for metastasis of recurrence of his pancreatic cancer. The pain is located over the mid aspect of the abdomen, has been intermittently present since 2015 when he underwent a Whipple procedure at [facility] in [place], [place]. The pain is moderate, nonradiating, secondary to previous surgery for pancreatic cancer, and alleviated in the past with morphine. He denies any fever, chills, or sweats. He denies any change in bowel habits. PFSH Past Medical History Hx Anticoagulant Therapy: Yes (BABY ASA ) Arthritis: Yes Autoimmune Disease: No Bipolar Disorder: Yes Anxiety: Yes Depression: Yes Heart Rhythm Problems: No Cancer: Yes (Pancreatic ) Cardiac Catheterization: Yes Cardiovascular Problems: Yes (NM TIMES 2 WITH STENTS) High Cholesterol: Yes Chemotherapy: Yes (pancreas cancer) Chest Pain: Yes Congestive Heart Failure: No Diabetes: No Diminished Hearing: No Endocrine: No Gastrointestinal Disorders: Yes (Gastroparesis ) Genitourinary: Yes Headaches: Yes Herniated Disk: Yes Hypertension: Yes (ON BP MEDS FOR HEART) Implanted Vascular Access Dvce: Yes (Power port left chest ) Kidney Stones: Yes Musculoskeletal: Yes Neurologic: Yes Psychiatric: Yes Reproductive: No Respiratory: No Immunizations Current: Yes Migraines: Yes Myocardial Infarction: Yes Pancreatitis: Yes Thyroid Disease: Yes (Hypo-) Ulcer: No Past Surgical History Abdominal Surgery: Yes (Whipple) AICD: No Body Medical Devices: Cardiac stents Cardiac Surgery: Yes Cholecystectomy: Yes Coronary Stent: Yes (X's 2) Ear Surgery: No Eye Surgery: No Genitourinary Surgery: No Gynecologic Surgery: No Joint Replacement: No Oral Surgery: Yes Pacemaker: No Tympanostomy Tube: Yes Other Surgery: Yes (G-J tube ) Social History Alcohol Use: No Tobacco Use: Yes Substance Use: Yes (Marijuana occ. ) Allergies-Medications (Allergen,Severity, Reaction): Coded Allergies: codeine (Verified Adverse Reaction, Severe, GI UPSET, 06/22/17) Reported Meds & Prescriptions Reported Meds & Active Scripts Active Reported Clonazepam 0.5 Mg Tab 0.5 Mg PO BID Vitamin D3 (Cholecalciferol) 1,000 Unit Tab 1,000 Units PO DAILY Folic Acid 400 Mcg Tab 1 Mg PO DAILY Creon (Amylase/Lipase/Protease) 12,000-38,000-60,000 Units Cap 1 Cap PO DIRECTED Six times daily Protonix (Pantoprazole Sodium) 40 Mg Tab 40 Mg PO DAILY Sertraline (Sertraline HCl) 100 Mg Tab 100 Mg PO DAILY Quetiapine (Quetiapine Fumarate) 100 Mg Tab 100 Mg PO HS Promethazine (Promethazine HCl) 12.5 Mg Tab 12.5 Mg PO Q6H PRN Ondansetron (Ondansetron HCl) 4 Mg Tab 4 Mg PO Q8H PRN Lisinopril 2.5 Mg Tab 2.5 Mg PO DAILY Carvedilol 6.25 Mg Tab 3.125 Mg PO DAILY Nitroglycerin SL (Nitroglycerin) 0.4 Mg Subl 0.4 Mg SL DIRECTED PRN ONE TABLET UNDER THE TONGUE NEEDED FOR CHEST PAIN, MAY REPEAT EVERY FIVE MINUTES FOR A TOTAL OF 3 DOSES OR CALL 911 IF NO RELIEF Synthroid (Levothyroxine Sodium) 75 Mcg Tab 75 Mcg PO DAILY Aspir-Low (Aspirin) 81 Mg Tabdr 81 Mg PO DAILY Review of Systems Except as stated in HPI: all other systems reviewed are Neg General / Constitutional: No: Fever, Chills HENT: No: Lightheadedness Cardiovascular: No: Chest Pain or Discomfort Respiratory: No: Shortness of Breath Gastrointestinal: Positive: Nausea, Vomiting, Abdominal Pain, No: Diarrhea Musculoskeletal: No: Weakness Neurologic: No: Dizziness Physical Exam Narrative GENERAL: Awake, alert, pleasant 56 year old male who appears his stated age and is in no acute respiratory distress. SKIN: Focused skin assessment warm/dry. HEAD: Atraumatic. Normocephalic. EYES: Pupils equal and round. No scleral icterus. No injection or drainage. ENT: No nasal bleeding or discharge. Slightly dry mucous membranes. NECK: Trachea midline. No JVD. CARDIOVASCULAR: Regular, tachycardic with a heart rate of 120. RESPIRATORY: No accessory muscle use. Clear to auscultation. Breath sounds equal bilaterally. GASTROINTESTINAL: Abdomen soft, well-healed scar in the upper aspect of the abdomen. Mild tenderness over the mid aspect of the abdomen but no guarding or rigidity. MUSCULOSKELETAL: No obvious deformities. No clubbing. No cyanosis. No edema. NEUROLOGICAL: Awake and alert. No obvious cranial nerve deficits. Motor grossly within normal limits. Normal speech. PSYCHIATRIC: Appropriate mood and affect; insight and judgment normal. Data Data Last Documented VS Vital Signs Date Time Temp Pulse Resp B/P (MAP) Pulse Ox O2 Delivery O2 Flow Rate FiO2 06/22/17 20:07 103 18 116/74 (88) 98 Room Air 06/22/17 17:58 97.8 Orders Orders Complete Blood Count With Diff (06/22/17 18:24) Comprehensive Metabolic Panel (06/22/17 18:24) Lipase (06/22/17 18:24) Iv Access Insert/Monitor (06/22/17 18:24) Ecg Monitoring (06/22/17 18:24) Oximetry (06/22/17 18:24) Ondansetron Inj (Zofran Inj) (06/22/17 18:30) Sodium Chlor 0.9% 1000 Ml Inj (Ns 1000 M (06/22/17 18:24) Sodium Chloride 0.9% Flush (Ns Flush) (06/22/17 18:30) Morphine Inj (Morphine Inj) (06/22/17 18:30) Sodium Chlor 0.9% 1000 Ml Inj (Ns 1000 M (06/22/17 19:00) Lactic Acid (06/22/17 19:20) Blood Culture (06/22/17 19:20) Urinalysis - C+S If Indicated (06/22/17 19:20) Chest, Single Ap (06/22/17 ) Sodium Chlor 0.9% 1000 Ml Inj (Ns 1000 M (06/22/17 20:45) Morphine Inj (Morphine Inj) (06/22/17 20:45) Admit Order (Ed Use Only) (06/22/17 20:38) Labs Laboratory Tests Test 06/22/17 18:30 06/22/17 19:48 06/22/17 20:25 White Blood Count 26.7 TH/MM3 Red Blood Count 4.18 MIL/MM3 Hemoglobin 12.7 GM/DL Hematocrit 38.2 % Mean Corpuscular Volume 91.5 FL Mean Corpuscular Hemoglobin 30.5 PG Mean Corpuscular Hemoglobin Concent 33.3 % Red Cell Distribution Width 13.7 % Platelet Count 263 TH/MM3 Mean Platelet Volume 8.7 FL Neutrophils (%) (Auto) 83.8 % Lymphocytes (%) (Auto) 4.9 % Monocytes (%) (Auto) 6.4 % Eosinophils (%) (Auto) 2.6 % Basophils (%) (Auto) 2.3 % Neutrophils # (Auto) 22.4 TH/MM3 Lymphocytes # (Auto) 1.3 TH/MM3 Monocytes # (Auto) 1.7 TH/MM3 Eosinophils # (Auto) 0.7 TH/MM3 Basophils # (Auto) 0.6 TH/MM3 CBC Comment AUTO DIFF Differential Total Cells Counted 100 Neutrophils % (Manual) 75 % Band Neutrophils % 9 % Lymphocytes % 8 % Monocytes % 5 % Eosinophils % 3 % Neutrophils # (Manual) 22.4 TH/MM3 Differential Comment FINAL DIFF MANUAL Platelet Estimate NORMAL Platelet Morphology Comment CLUMPED Red Cell Morphology Comment NORMAL Blood Urea Nitrogen 16 MG/DL Creatinine 0.80 MG/DL Random Glucose 156 MG/DL Total Protein 6.0 GM/DL Albumin 2.1 GM/DL Calcium Level 8.8 MG/DL Alkaline Phosphatase 190 U/L Aspartate Amino Transf (AST/SGOT) 24 U/L Alanine Aminotransferase (ALT/SGPT) 16 U/L Total Bilirubin 0.6 MG/DL Sodium Level 133 MEQ/L Potassium Level 3.8 MEQ/L Chloride Level 97 MEQ/L Carbon Dioxide Level 25.4 MEQ/L Anion Gap 11 MEQ/L Estimat Glomerular Filtration Rate 100 ML/MIN Lipase 36 U/L Lactic Acid Level 2.7 mmol/L Urine Color DREW Urine Turbidity SLIGHT Urine pH 5.5 Urine Specific [place] GREATER THAN 1.035 Urine Protein 30 mg/dL Urine Glucose (UA) NEG mg/dL Urine Ketones NEG mg/dL Urine Occult Blood NEG Urine Nitrite NEG Urine Bilirubin NEG Urine Leukocyte Esterase NEG Urine RBC 4-9 /hpf Urine Squamous Epithelial Cells 0-5 /hpf Urine Calcium Oxalate Crystals MOD /hpf Urine Amorphous Sediment FEW Urine Bacteria FEW /hpf Urine Hyaline Casts 15-19 /lpf Urine Mucus MANY /lpf Urine Sperm OCC Microscopic Urinalysis Comment CULT NOT INDICATED MDM Medical Decision Making Medical Screen Exam Complete: Yes Emergency Medical Condition: Yes Medical Record Reviewed: Yes Interpretation(s) CT scanning of the abdomen and pelvis with contrast that was performed on June 19, 2017 at radiology [facility] imaging twelve-lead [place] reveals changes of Whipple procedure, with low density lesions in the left hepatic lobe , concerning for metastasis. Fluid density collection in the right upper abdomen, within the expected location of the lesser sac along with additional fluid density collections in the upper abdomen, that may reflect postoperative collections, abscess, or cystic peritoneal implants. Extensive retroperitoneal , anterior diaphragmatic, and mesenteric adenopathy, compatible with neoplastic involvement. Diffuse hepatic steatosis. Low density left intraventricular filling defect, that may reflect thrombus or metastasis. Laboratory Tests Test 06/22/17 18:30 White Blood Count 26.7 TH/MM3 Red Blood Count 4.18 MIL/MM3 Hemoglobin 12.7 GM/DL Hematocrit 38.2 % Mean Corpuscular Volume 91.5 FL Mean Corpuscular Hemoglobin 30.5 PG Mean Corpuscular Hemoglobin Concent 33.3 % Red Cell Distribution Width 13.7 % Platelet Count 263 TH/MM3 Mean Platelet Volume 8.7 FL Neutrophils (%) (Auto) 83.8 % Lymphocytes (%) (Auto) 4.9 % Monocytes (%) (Auto) 6.4 % Eosinophils (%) (Auto) 2.6 % Basophils (%) (Auto) 2.3 % Neutrophils # (Auto) 22.4 TH/MM3 Lymphocytes # (Auto) 1.3 TH/MM3 Monocytes # (Auto) 1.7 TH/MM3 Eosinophils # (Auto) 0.7 TH/MM3 Basophils # (Auto) 0.6 TH/MM3 CBC Comment AUTO DIFF Differential Total Cells Counted 100 Neutrophils % (Manual) 75 % Band Neutrophils % 9 % Lymphocytes % 8 % Monocytes % 5 % Eosinophils % 3 % Neutrophils # (Manual) 22.4 TH/MM3 Differential Comment FINAL DIFF MANUAL Platelet Estimate NORMAL Platelet Morphology Comment CLUMPED Red Cell Morphology Comment NORMAL Blood Urea Nitrogen 16 MG/DL Creatinine 0.80 MG/DL Random Glucose 156 MG/DL Total Protein 6.0 GM/DL Albumin 2.1 GM/DL Calcium Level 8.8 MG/DL Alkaline Phosphatase 190 U/L Aspartate Amino Transf (AST/SGOT) 24 U/L Alanine Aminotransferase (ALT/SGPT) 16 U/L Total Bilirubin 0.6 MG/DL Sodium Level 133 MEQ/L Potassium Level 3.8 MEQ/L Chloride Level 97 MEQ/L Carbon Dioxide Level 25.4 MEQ/L Anion Gap 11 MEQ/L Estimat Glomerular Filtration Rate 100 ML/MIN Lipase 36 U/L Differential Diagnosis Differential diagnosis includes metastatic pancreatic cancer, pulmonary embolism , septic emboli, intraventricular thrombus, dehydration, electrolyte abnormality , chronic pain. Narrative Course The patient's port was accessed. Labs are drawn and sent. The patient was placed on cardiac telemetry monitoring and continuous pulse oximetry monitoring. The patient was administered Zofran, morphine 8 mg intravenously, and 1 L of IV fluids. The patient's white count was noted to be 26.7 with neutrophils of 75 and bands of 9. Patient's lactic acid was mildly elevated at 2.7. The patient was administered several liters of IV fluids and redosed with pain medication. The patient does not have a fever, however, he does have elevated heart rate with elevated white count, may be secondary to bacteremia. Chest x-ray was obtained, no evidence of pneumonia. UA was sent to lab. Patient will require 23 hour observation for reevaluation of white count and lactic acid in the morning as well as initial culture results. The patient has [employer], therefore, [facility] were paged for 23 hour observation. Sepsis Criteria SIRS Criteria (2 or more): Heart rate over 90, WBC > 90557, < 4000 or > 10% bands Criteria Outcome: Meets SIRS criteria Physician Communication Physician Communication [facility] were paged for 23 hour observation. I discussed the patient with Dr. Hardin who agrees with 23 observation. Diagnosis Primary Impression: Abdominal pain Qualified Codes: R10.13 - Epigastric pain Additional Impression: SIRS (systemic inflammatory response syndrome) Admitting Information Admitting Physician Requests: Observation Condition: Stable Kota Hahn MD Jun 22, 2017 18:34
[2017-06-22 18:44] LABS: AUTOMATED NEUTROPHIL # 22.4 TH/MM3 (1.8-7.7); BASOPHIL # 0.6 TH/MM3 (0-0.2); BASOPHIL % 2.3 % (0.0-2.0); EOSINOPHIL # 0.7 TH/MM3 (0-0.4); EOSINOPHIL % 2.6 % (0.0-4.0); HEMATOCRIT 38.2 % (39.0-51.0); LYMPH % 4.9 % (9.0-44.0); LYMPHOCYTE # 1.3 TH/MM3 (1.0-4.8); MEAN CELL VOLUME 91.5 FL (80.0-100.0); MEAN CORPUSCULAR HEMOGLOBIN 30.5 PG (27.0-34.0); MEAN CORPUSCULAR HGB CONC 33.3 % (32.0-36.0); MONO % 6.4 % (0.0-8.0); NEUT % 83.8 % (16.0-70.0); PLATELET COUNT 263 TH/MM3 (150-450); RED BLOOD COUNT 4.18 MIL/MM3 (4.50-5.90); RED CELL DISTRIBUTION WIDTH 13.7 % (11.6-17.2); WHITE BLOOD COUNT 26.7 TH/MM3 (4.0-11.0)
[2017-06-22 18:48] LABS: HEMO FLAGS AUTO DIFF
[2017-06-22 18:51] LABS: CHLORIDE 97 MEQ/L (98-107); POTASSIUM 3.8 MEQ/L (3.5-5.1); SODIUM (NA) 133 MEQ/L (136-145)
[2017-06-22 18:54] LABS: ANION GAP 11 MEQ/L (5-15); BICARBONATE 25.4 MEQ/L (21.0-32.0)
[2017-06-22 18:55] LABS: BLOOD UREA NITROGEN 16 MG/DL (7-18)
[2017-06-22 18:57] LABS: ALT (GPT) 16 U/L (12-78); AST (GOT) 24 U/L (15-37); GLOMERULAR FILTRATION RATE 100 ML/MIN (>89)
[2017-06-22 18:59] LABS: TOTAL BILIRUBIN ADULT 0.6 MG/DL (0.2-1.0)
[2017-06-22 19:00] LABS: ALKALINE PHOSPHATASE 190 U/L (45-117)
[2017-06-22] MEDS ORDERED: SODIUM CHLOR 0.9% 1000 ML INJ 1,000 ML IV ONE ×2 (19:00→20:45)
[2017-06-22 19:12] LABS: BANDS 9 % (0-6); EOSINOPHILS 3 % (0-4); NEUTROPHIL # MANUAL DIFF 22.4 TH/MM3 (1.8-7.7); PLATELET ESTIMATE SMEAR NORMAL (NORMAL); PLATELET MORPHOLOGY CLUMPED (NORMAL); POLYS (SEG NEUTROPHILS) 75 % (16-70); SCAN/DIFF FINAL DIFF MANUAL; WBC DIFF SAMPLE 100
--- NOTE | 2017-06-22 20:22 | RADRPT ---
EXAM DATE/TIME: 06/22/2017 19:56 [facility] COMPARISON: CT ABDOMEN W/O CONTRAST, October 22, 2016, 19:44. CHEST SINGLE AP, October 22, 2016, 19:20. INDICATIONS : Chest pain. MEDICAL HISTORY : Carcinoma, pancreas. Myocardial infarction. Hypertension. SURGICAL HISTORY : Coronary artery stent. Infusaport. ENCOUNTER: Initial ACUITY: 1 day PAIN SCORE: 4/10 LOCATION: chest substernal. FINDINGS: The heart size is normal. There is [id number] in place from the left subclavian approach. There is focal increased density at the right base. This has a somewhat linear orientation. There some minima l linear density at the inferior left base. CONCLUSION: Increased linear density at the bases bilaterally being more prominent on the right likely related to scarring or atelectasis. Torey Robert MD on June 22, 2017 at 20:18 Board Certified Radiologist. This report was verified electronically.
[2017-06-22 20:38] LABS: BLOOD, URINE NEG (NEG); GLUCOSE,URINE NEG (NEG); KETONE, URINE NEG (NEG); NITRITE,URINE NEG (NEG); PH, URINE 5.5 (5.0-8.5)
[2017-06-22] MEDS ORDERED: MORPHINE SULFATE 4 MG/ML INJ IV PUSH ONE (20:45)
[2017-06-22] MEDS: SODIUM CHLOR 0.9% 1000 ML INJ 1,000 ML IV SCH (20:47)
[2017-06-22 21:00] LABS: HYALINE CAST, URINE 15-19 /lpf (RARE); MUCUS URINE MANY /lpf (OCC); URINE COLOR AMBER (YELLW/STRAW)
[2017-06-22] MEDS ORDERED: MORPHINE SULFATE 15 MG TAB PO PRN (21:00)
[2017-06-22] MEDS ORDERED: LACTULOSE SYRUP 20 GM/30 ML CUP PO PRN (21:00)
[2017-06-22] MEDS ORDERED: BISACODYL 10 MG SUPP RECTAL PRN (21:00)
[2017-06-22] MEDS ORDERED: ONDANSETRON HCL 4 MG/2 ML VIAL IVP PRN (21:00)
[2017-06-22] MEDS: SODIUM CHLORIDE 0.9% FLUSH 10 ML FLUSH IV FLUSH SCH (21:00)
[2017-06-22] MEDS ORDERED: Vancomycin Consult Pharmacy 1 EA OTHER SCH (21:00)
[2017-06-22] MEDS ORDERED: SENNOSIDES 8.6 MG TAB PO PRN (21:00)
[2017-06-22] MEDS ORDERED: MAGNESIUM HYDROXIDE SUSP 30 ML CUP PO PRN (21:00)
[2017-06-22] MEDS ORDERED: ACETAMINOPHEN 325 MG TAB PO PRN (21:00)
[2017-06-22 21:01] LABS: SQUAMOUS EPITHELIAL CELL URINE 0-5 /hpf (0-5)
[2017-06-22 21:02] LABS: BACTERIA, URINE FEW /hpf
[2017-06-22 21:05] LABS: CALCIUM OXALATE CRYSTALS,URINE MOD /hpf; COMMENT (UR) CULT NOT INDICATED; CULTURE IF INDICATED CULT NOT INDICATED
[2017-06-22] MEDS: DOCUSATE SODIUM 50 MG/SENNA 8.6 MG TAB PO SCH (21:34)
[2017-06-22] MEDS: QUEtiapine FUMARATE 100 MG TAB PO SCH (21:34)
[2017-06-22] MEDS: clonazePAM 0.5 MG TAB PO SCH (21:34)
[2017-06-22] MEDS: MORPHINE SULFATE 30 MG CONTROLLED RELEASE TAB PO SCH (22:38)
[2017-06-22] MEDS: PIPERACIL-TAZO 4.5 GM PREMIX 100 ML IV SCH (22:39)
[2017-06-22] MEDS: VANCOMYCIN INJ 1,250 MG in SODIUM CHLOR 0.9% 250 ML INJ 250 ML IV SCH (23:20)
[2017-06-23] VITALS: BP 100/60; PULSE 102; RESP 16; TEMP 98.5; O2SAT 95
[2017-06-23] MEDS: MORPHINE SULFATE 4 MG/ML INJ IV PUSH PRN ×3 (00:25→08:38)
[2017-06-23] MEDS: SODIUM CHLOR 0.9% 1000 ML INJ 1,000 ML IV SCH ×4 (00:33→21:29)
[2017-06-23] MEDS: PIPERACIL-TAZO 4.5 GM PREMIX 100 ML IV SCH ×4 (03:36→21:16)
[2017-06-23 04:00] VITALS: BP 100/73; PULSE 102; RESP 16; TEMP 97.7; O2SAT 92
[2017-06-23] MEDS: MORPHINE SULFATE 30 MG CONTROLLED RELEASE TAB PO SCH ×3 (05:58→21:16)
[2017-06-23] MEDS: LEVOTHYROXINE SODIUM 75 MCG TAB PO SCH (05:58)
[2017-06-23] MEDS: SODIUM CHLORIDE 0.9% FLUSH 10 ML FLUSH IV FLUSH SCH ×2 (08:31→21:16)
[2017-06-23] MEDS: LIPASE/PROTEASE/AMYLASE (12,000/38,000/60,000) CAP PO SCH (08:32)
[2017-06-23] MEDS: SERTRALINE HCL 100 MG TAB PO SCH (08:33)
[2017-06-23] MEDS: FOLIC ACID 1 MG TAB PO SCH (08:33)
[2017-06-23] MEDS: DOCUSATE SODIUM 50 MG/SENNA 8.6 MG TAB PO SCH ×2 (08:33→21:16)
[2017-06-23] MEDS: clonazePAM 0.5 MG TAB PO SCH ×2 (08:33→21:16)
[2017-06-23] MEDS: PANTOPRAZOLE SOD 40 MG DELAYED RELEASE TAB PO SCH (08:33)
[2017-06-23 09:49] VITALS: BP 105/76; PULSE 102; RESP 16; TEMP 98.9; O2SAT 93
[2017-06-23] MEDS: VANCOMYCIN INJ 1,250 MG in SODIUM CHLOR 0.9% 250 ML INJ 250 ML IV SCH ×2 (10:39→22:15)
[2017-06-23] MEDS: MORPHINE SULFATE 2 MG/ML INJ IV PUSH PRN ×2 (12:20→18:10)
--- NOTE | 2017-06-23 12:51 | HHI.HP ---
[facility]Staff Admission Diagnosis intractable abdominal pain, SIRS, leukocytosis, bandemia Diagnoses: Chief Complaint: Abdominal pain Travel History International Travel<30 Days: No Contact w/Intl Traveler <30 Da: No Traveled to Known Affected Are: No History of Present Illness Patient is a pleasant 56-year-old gentleman with locally advanced a cancer status post neoadjuvant chemotherapy and definitive surgery. Patient hasn't followed up locally with Dr. Plaza. He has chronic abdominal pain and apparently ran out of this because he was taking it more frequently than prescribed. Patient says he has recently been evaluated for possible recurrence of his pancreatic cancer. Patient reports increasing abdominal pain with associated nausea and vomiting. The pain has been severe. It was relieved with IV morphine in the emergency room. Review of Systems Constitutional: DENIES: Diaphoretic episodes, Fatigue, Fever, Weight gain, Weight loss, Chills, Dizziness, Change in appetite, Night Sweats Endocrine: DENIES: Heat/cold intolerance, Polydipsia, Polyuria, Polyphagia Eyes: DENIES: Blurred vision, Diplopia, Eye inflammation, Eye pain, Vision loss , Photosensitivity, Double Vision Ears, nose, mouth, throat: DENIES: Tinnitus, Hearing loss, Vertigo, Nasal discharge, Oral lesions, Throat pain, Hoarseness, Ear Pain, Running Nose, Epistaxis, Sinus Pain, Toothache, Odynophagia Respiratory: DENIES: Apneas, Cough, Snoring, Wheezing, Hemoptysis, Sputum production, Shortness of breath Cardiovascular: DENIES: Chest pain, Palpitations, Syncope, Dyspnea on Exertion , PND, Lower Extremity Edema, Orthopnea, Claudication Gastrointestinal: COMPLAINS OF: Abdominal pain, DENIES: Black stools, Bloody stools, Constipation, Diarrhea, Nausea, Vomiting, Difficulty Swallowing, Anorexia Genitourinary: DENIES: Sexual dysfunction, Urinary frequency, Urinary incontinence, Urgency, Hematuria, Dysuria, Nocturia, Penile Discharge, Testicular Pain, Testicular Swelling Musculoskeletal: COMPLAINS OF: Joint pain, Muscle aches, DENIES: Stiffness, Joint Swelling, Back pain, Neck pain Integumentary: DENIES: Abnormal pigmentation, Nail changes, Pruritus, Rash Hematologic/lymphatic: DENIES: Bruising, Lymphadenopathy Immunologic/allergic: DENIES: Eczema, Urticaria Neurologic: DENIES: Abnormal gait, Headache, Localized weakness, Paresthesias, Seizures, Speech Problems, Tremor, Poor Balance Psychiatric: COMPLAINS OF: Anxiety, DENIES: Confusion, Mood changes, Depression , Hallucinations, Agitation, Suicidal Ideation, Homicidal Ideation, Delusions Except as stated in HPI: all other systems reviewed are Neg Past Family Social History Past Medical History Pancreatic cancer Coronary artery disease with stents Past Surgical History cardiac stents 2, Whipple Port placed Reported Medications Reviewed in the EMR, ran out of morphine, unable to afford Creon Allergies: Coded Allergies: codeine (Verified Adverse Reaction, Severe, GI UPSET, 06/22/17) Active Ordered Medications Reviewed in the EMR Family History Family is healthy and alive and well Social History No current alcohol, smokes at least half a pack daily and occasional marijuana use Physical Exam Vital Signs Vital Signs Date Time Temp Pulse Resp B/P (MAP) Pulse Ox O2 Delivery O2 Flow Rate FiO2 06/23/17 09:49 98.9 102 16 105/76 (86) 93 06/23/17 04:00 97.7 102 16 100/73 (82) 92 06/23/17 00:00 98.5 102 16 100/60 (73) 95 06/22/17 22:10 97.4 106 20 120/84 (96) 98 06/22/17 21:44 97 18 106/78 (87) 97 06/22/17 21:00 104 18 108/79 (89) 97 Room Air 06/22/17 20:07 103 18 116/74 (88) 98 Room Air 06/22/17 19:00 105 20 82/58 (66) 97 Room Air 06/22/17 19:00 20 06/22/17 19:00 18 06/22/17 18:49 111 20 106/80 (89) 97 06/22/17 18:10 97 06/22/17 17:58 97.8 130 18 99 Physical Exam GENERAL: This is a well-nourished, well-developed patient, in no apparent distress. SKIN: No rashes, ecchymoses or lesions. Cool and dry. HEAD: Atraumatic. Normocephalic. No temporal or scalp tenderness. EYES: Pupils equal round and reactive. Extraocular motions intact. No scleral icterus. No injection or drainage. ENT: Nose without bleeding, purulent drainage or septal hematoma. Throat without erythema, tonsillar hypertrophy or exudate. Uvula midline. Airway patent. NECK: Trachea midline. No JVD or lymphadenopathy. Supple, nontender, no meningeal signs. CARDIOVASCULAR: Regular rate and rhythm without murmurs, gallops, or rubs. RESPIRATORY: Clear to auscultation. Breath sounds equal bilaterally. No wheezes , rales, or rhonchi. GASTROINTESTINAL: Abdomen soft, non-tender, nondistended. No hepato-splenomegaly , or palpable masses. No guarding. MUSCULOSKELETAL: Extremities without clubbing, cyanosis, or edema. No joint tenderness, effusion, or edema noted. No calf tenderness. Negative Homans sign bilaterally. NEUROLOGICAL: Awake and alert. Cranial nerves II through XII intact. Motor and sensory grossly within normal limits. Five out of 5 muscle strength in all muscle groups. Normal speech. Laboratory Laboratory Tests Test 06/22/17 18:30 06/22/17 19:48 06/22/17 20:25 06/22/17 22:35 White Blood Count 26.7 Red Blood Count 4.18 Hemoglobin 12.7 Hematocrit 38.2 Mean Corpuscular Volume 91.5 Mean Corpuscular Hemoglobin 30.5 Mean Corpuscular Hemoglobin Concent 33.3 Red Cell Distribution Width 13.7 Platelet Count 263 Mean Platelet Volume 8.7 Neutrophils (%) (Auto) 83.8 Lymphocytes (%) (Auto) 4.9 Monocytes (%) (Auto) 6.4 Eosinophils (%) (Auto) 2.6 Basophils (%) (Auto) 2.3 Neutrophils # (Auto) 22.4 Lymphocytes # (Auto) 1.3 Monocytes # (Auto) 1.7 Eosinophils # (Auto) 0.7 Basophils # (Auto) 0.6 CBC Comment AUTO DIFF Differential Total Cells Counted 100 Neutrophils % (Manual) 75 Band Neutrophils % 9 Lymphocytes % 8 Monocytes % 5 Eosinophils % 3 Neutrophils # (Manual) 22.4 Differential Comment FINAL DIFF MANUAL Platelet Estimate NORMAL Platelet Morphology Comment CLUMPED Red Cell Morphology Comment NORMAL Blood Urea Nitrogen 16 Creatinine 0.80 Random Glucose 156 Total Protein 6.0 Albumin 2.1 Calcium Level 8.8 Alkaline Phosphatase 190 Aspartate Amino Transf (AST/SGOT) 24 Alanine Aminotransferase (ALT/SGPT) 16 Total Bilirubin 0.6 Sodium Level 133 Potassium Level 3.8 Chloride Level 97 Carbon Dioxide Level 25.4 Anion Gap 11 Estimat Glomerular Filtration Rate 100 Lipase 36 Lactic Acid Level 2.7 2.1 Urine Color DREW Urine Turbidity SLIGHT Urine pH 5.5 Urine Specific [place] GREATER THAN 1.035 Urine Protein 30 Urine Glucose (UA) NEG Urine Ketones NEG Urine Occult Blood NEG Urine Nitrite NEG Urine Bilirubin NEG Urine Leukocyte Esterase NEG Urine RBC 4-9 Urine Squamous Epithelial Cells 0-5 Urine Calcium Oxalate Crystals MOD Urine Amorphous Sediment FEW Urine Bacteria FEW Urine Hyaline Casts 15-19 Urine Mucus MANY Urine Sperm OCC Microscopic Urinalysis Comment CULT NOT INDICATED Date/Time Source Procedure Growth Status 06/22/17 19:53 Blood Peripheral Aerobic Blood Culture - Preliminary NO GROWTH IN 1 DAY Resulted 06/22/17 19:53 Blood Peripheral Anaerobic Blood Culture - Preliminary NO GROWTH IN 1 DAY Resulted Result Diagram: 06/22/17 1830 06/22/17 1830 Septic Shock Reassessment Septic shock perfusion: reassessment completed Caprini VTE Risk Assessment Caprini VTE Risk Assessment: Mod/High Risk (score >= 2) Caprini Risk Assessment Model Point Value = 1 Point Value = 2 Point Value = 3 Point Value = 5 Age 41-60 Minor surgery BMI > 25 kg/m2 Swollen legs Varicose veins or History of unexplained or recurrent spontaneous Oral contraceptives or hormone replacement Sepsis (< 1 month) Serious lung disease, including pneumonia (< 1 month) Abnormal pulmonary function Acute myocardial infarction Congestive heart failure (< 1 month) History of inflammatory bowel disease Medical patient at bed rest Age 61-74 Arthroscopic surgery Major open surgery (> 45 min) Laparoscopic surgery (> 45 min) Malignancy Confined to bed (> 72 hours) Immobilizing plaster cast Central venous access Age >= 75 History of VTE Family history of VTE Factor V Leiden Prothrombin [id number] Lupus anticoagulant Anticardiolipin antibodies Elevated serum homocysteine Heparin-induced thrombocytopenia Other congenital or acquired thrombophilia Stroke (< 1 month) Elective arthroplasty Hip, pelvis, or leg fracture Acute spinal cord injury (< 1 month) Prophylaxis Regimen Total Risk Factor Score Risk Level Prophylaxis Regimen 0-1 Low Early ambulation 2 Moderate Order ONE of the following: *Sequential Compression Device (SCD) *Heparin 5000 units SQ BID 3-4 Higher Order ONE of the following medications: *Heparin 5000 units SQ TID *Enoxaparin/Lovenox 40 mg SQ daily (WT < 150 kg, CrCl > 30 mL/min) *Enoxaparin/Lovenox 30 mg SQ daily (WT < 150 kg, CrCl > 10-29 mL/min) *Enoxaparin/Lovenox 30 mg SQ BID (WT < 150 kg, CrCl > 30 mL/min) AND/OR *Sequential Compression Device (SCD) 5 or more Highest Order ONE of the following medications: *Heparin 5000 units SQ TID (Preferred with Epidurals) *Enoxaparin/Lovenox 40 mg SQ daily (WT < 150 kg, CrCl > 30 mL/min) *Enoxaparin/Lovenox 30 mg SQ daily (WT < 150 kg, CrCl > 10-29 mL/min) *Enoxaparin/Lovenox 30 mg SQ BID (WT < 150 kg, CrCl > 30 mL/min) AND *Sequential Compression Device (SCD) Assessment and Plan Problem List: (1) SIRS (systemic inflammatory response syndrome) ICD Code: R65.10 - Systemic inflammatory response syndrome (SIRS) of non- infectious origin without acute organ dysfunction Status: Acute Plan: Patient with left arm swelling, tachycardia and leukocytosis r/o dvt US left arm pendin f/u bc IV hydration (2) Port catheter in place ICD Code: Z95.828 - Presence of other vascular implants and grafts Status: Chronic Plan: Is not working Will follow-up with heparin (3) Bipolar 1 disorder ICD Code: F31.9 - Bipolar disorder, unspecified Status: Chronic Plan: Patient will continue with sertraline, quetiapine and Klonopin (4) History of myocardial infarction ICD Code: I25.2 - History of myocardial infarction Status: Chronic Plan: Patient with cardiac stents 2, continue aspirin, Coreg and lisinopril (5) Pancreatic cancer ICD Code: C25.9 - Malignant neoplasm of pancreas, unspecified Status: Chronic Plan: Metastatic diagnosed 09/19 Patient follows up with Dr. Plaza at the local oncology office. He had been on morphine which she ran out of Prevacid he had been using it more frequently than prescribed) Continue Protonix, Creon (unable to afford Creon) Continue with outpatient follow-up for possible biopsy of the liver/lymph nodes (per patient processes notes from oncology from 06/13, questionable for recurrent disease for a T3 N1 M0 resected pancreatic Cancer) (6) Abdominal pain ICD Code: R10.9 - Abdominal pain Status: Chronic Plan: Patient with increasing abdominal pain requiring more of his narcotics. Continue Protonix Continue pain medication with IV morphine We'll follow clinically for improvement to follow-up in outpatient setting Assessment and Plan Plan of care to be determined by Hospital course Code Status Full code Discussed Condition With Patient, nursing team Physician Certification 2 Midnight Certification Type: Admission for Inpatient Services Order for Inpatient Services The services are ordered in accordance with Medicare regulations or non- Medicare payer requirements, as applicable. In the case of services not specified as inpatient-only, they are appropriately provided as inpatient services in accordance with the 2-midnight benchmark. Estimated LOS (days): 3 3 days is the estimated time the patient will need to remain in the hospital, assuming treatment plan goals are met and no additional complications. Post-Hospital Plan: Home Problem Qualifiers (1) Abdominal pain: Qualified Codes: R10.13 - Epigastric pain Marta Cruz MD Jun 23, 2017 12:51
--- NOTE | 2017-06-23 13:59 | RADRPT ---
EXAM DATE/TIME: 06/23/2017 12:58 [facility] COMPARISON: No previous studies available for comparison. INDICATIONS : Left arm swelling and pain. MEDICAL HISTORY : Hypothyroidism. Myocardial infarction. Hypercholesterolemia. Syncope. Migraines. Chest pain. Hyperten sreedhar. Gastroparesis. Pancreatitis. Gallstones. Kidney stones. Arthritis. Herniated disc. Chronic back pain. Liver disease. Pancreatic cancer. Chemotherapy. Anticoagulant therapy, Aspirin 81mg. SURGICAL HISTORY : Coronary artery stent. Cholecystectomy. Tympanostomy tube. Cardiac catheterization. Whipple procedu re. Right shoulder surgery x2. GJ tube placement and removed. ENCOUNTER: Initial ACUITY: 1 day PAIN SCORE: 3/10 LOCATION: Left arm. FINDINGS: Echogenic noncompressible thrombus is seen. This extends through the left jugular vein, subclavian ve in, axillary vein, basilic veins, and brachial vein. It extends through the distal aspects of the bas ilic veins enter the mid to distal brachial vein. Radial and ulnar veins are patent. CONCLUSION: DVT as detailed above. Osei Chadwick Jr., MD on June 23, 2017 at 13:53 Board Certified Radiologist. This report was verified electronically.
[2017-06-23 14:00] VITALS: PULSE 95
[2017-06-23 15:00] LABS: BASOPHIL # 0.7 TH/MM3 (0-0.2); BASOPHIL % 2.8 % (0.0-2.0); EOSINOPHIL # 2.4 TH/MM3 (0-0.4); EOSINOPHIL % 9.7 % (0.0-4.0); LYMPH % 4.8 % (9.0-44.0); LYMPHOCYTE # 1.2 TH/MM3 (1.0-4.8); MEAN CORPUSCULAR HEMOGLOBIN 30.5 PG (27.0-34.0); MEAN CORPUSCULAR HGB CONC 32.1 % (32.0-36.0); MONO % 6.6 % (0.0-8.0); NEUT % 76.1 % (16.0-70.0); PLATELET COUNT 248 TH/MM3 (150-450); RED BLOOD COUNT 3.89 MIL/MM3 (4.50-5.90); RED CELL DISTRIBUTION WIDTH 14.5 % (11.6-17.2); WHITE BLOOD COUNT 24.9 TH/MM3 (4.0-11.0)
[2017-06-23 15:06] LABS: CHLORIDE 102 MEQ/L (98-107); POTASSIUM 4.1 MEQ/L (3.5-5.1); SODIUM (NA) 134 MEQ/L (136-145)
[2017-06-23 15:10] LABS: HEMO FLAGS AUTO DIFF
[2017-06-23 15:29] LABS: ALKALINE PHOSPHATASE 181 U/L (45-117); ALT (GPT) 14 U/L (12-78); ANION GAP 7 MEQ/L (5-15); AST (GOT) 24 U/L (15-37); BLOOD UREA NITROGEN 16 MG/DL (7-18); GLOMERULAR FILTRATION RATE 119 ML/MIN (>89); TOTAL BILIRUBIN ADULT 0.5 MG/DL (0.2-1.0)
[2017-06-23 15:35] LABS: PLATELET ESTIMATE SMEAR NORMAL (NORMAL); PLATELET MORPHOLOGY NORMAL (NORMAL); SCAN/DIFF AUTO DIFF CONFIRMED; TOXIC GRANULATION 1+ (NORMAL)
[2017-06-23 16:56] LABS: MEAN CELL VOLUME 93.2 FL (80.0-100.0); MEAN CORPUSCULAR HEMOGLOBIN 28.9 PG (27.0-34.0); PLATELET COUNT 268 TH/MM3 (150-450); RED BLOOD COUNT 4.41 MIL/MM3 (4.50-5.90); RED CELL DISTRIBUTION WIDTH 14.6 % (11.6-17.2); REVIEW FLAG FINAL; WHITE BLOOD COUNT 22.8 TH/MM3 (4.0-11.0)
[2017-06-23 17:08] LABS: APTT (PATIENT) 23.9 SEC (24.3-30.1); INTERNATIONAL NORMALIZED RATIO 1.2 RATIO; PROTHROMBIN TIME - PATIENT 12.5 SEC (9.8-11.6)
[2017-06-23] MEDS: HEPARIN-D5W 25,000 U/250 ML 250 ML IV PRN (18:22)
[2017-06-23 18:30] VITALS: BP 122/86; PULSE 101; RESP 18; TEMP 98.3; O2SAT 93
[2017-06-23 20:00] VITALS: BP 118/87; PULSE 93; RESP 20; TEMP 98.5; O2SAT 91
[2017-06-23] MEDS: QUEtiapine FUMARATE 100 MG TAB PO SCH (21:16)
[2017-06-24] VITALS: BP 116/87; PULSE 96; RESP 20; TEMP 97.1; O2SAT 90
[2017-06-24] MEDS: MORPHINE SULFATE 2 MG/ML INJ IV PUSH PRN ×4 (00:03→15:56)
[2017-06-24] MEDS: PIPERACIL-TAZO 4.5 GM PREMIX 100 ML IV SCH ×4 (04:04→21:33)
[2017-06-24] MEDS: LEVOTHYROXINE SODIUM 75 MCG TAB PO SCH (06:16)
[2017-06-24] MEDS: MORPHINE SULFATE 30 MG CONTROLLED RELEASE TAB PO SCH ×3 (06:17→21:33)
[2017-06-24 08:00] VITALS: BP 126/76; PULSE 98; RESP 18; TEMP 96.7; O2SAT 92
[2017-06-24] MEDS: DOCUSATE SODIUM 50 MG/SENNA 8.6 MG TAB PO SCH ×2 (09:24→21:32)
[2017-06-24] MEDS: SODIUM CHLORIDE 0.9% FLUSH 10 ML FLUSH IV FLUSH SCH ×2 (09:24→21:30)
[2017-06-24] MEDS: PANTOPRAZOLE SOD 40 MG DELAYED RELEASE TAB PO SCH (09:24)
[2017-06-24] MEDS: FOLIC ACID 1 MG TAB PO SCH (09:24)
[2017-06-24] MEDS: LIPASE/PROTEASE/AMYLASE (12,000/38,000/60,000) CAP PO SCH (09:24)
[2017-06-24] MEDS: clonazePAM 0.5 MG TAB PO SCH ×2 (09:24→21:33)
[2017-06-24] MEDS: SERTRALINE HCL 100 MG TAB PO SCH (09:24)
[2017-06-24] MEDS ORDERED: PHARMACY ORDERED LAB ONE (10:45)
[2017-06-24] MEDS: VANCOMYCIN INJ 1,250 MG in SODIUM CHLOR 0.9% 250 ML INJ 250 ML IV SCH ×2 (11:00→23:22)
[2017-06-24 12:00] VITALS: BP 142/101; PULSE 100; TEMP 97.9; O2SAT 92
[2017-06-24 13:40] LABS: APTT (PATIENT) 25.2 SEC (24.3-30.1)
[2017-06-24] MEDS: SODIUM CHLOR 0.9% 1000 ML INJ 1,000 ML IV SCH (14:00)
[2017-06-24] MEDS: HEPARIN-D5W 25,000 U/250 ML 250 ML IV PRN (14:34)
--- NOTE | 2017-06-24 15:23 | HHI.PR ---
Subjective Remarks Patient seen and examined today for follow-up on intractable abdominal pain, DVT secondary to pancreatic cancer. Awaiting oncology/hematology for recommendations. Patient states that pain is controlled while he is in the hospital. Patient is afebrile, blood pressure appears to be stable. Objective Vital Signs Date Time Temp Pulse Resp B/P (MAP) Pulse Ox O2 Delivery O2 Flow Rate FiO2 06/24/17 15:01 18 06/24/17 12:00 97.9 100 142/101 (115) 92 06/24/17 11:59 18 06/24/17 09:30 18 06/24/17 08:00 96.7 98 18 126/76 (93) 92 06/24/17 00:00 97.1 96 20 116/87 (97) 90 06/23/17 20:00 98.5 93 20 118/87 (97) 91 06/23/17 18:30 98.3 101 18 122/86 (98) 93 I/O 06/23/17 06/23/17 06/23/17 06/24/17 06/24/17 06/24/17 07:00 15:00 23:00 07:00 15:00 23:00 Intake Total 2049 ml 350 ml 1200 ml 120 ml Output Total 200 ml Balance 2049 ml 150 ml 1200 ml 120 ml Intake Oral 600 ml 1200 ml 120 ml IV Total 1449 ml 350 ml Output Urine Total 200 ml # Voids 0 3 1 # Bowel Movements 0 Result Diagram: 06/23/17 1641 06/23/17 1445 Imaging Last Impressions Upper Extremity Ultrasound 06/23/17 0000 Signed Impressions: Service Date/Time: Friday, June 23, 2017 12:58 - CONCLUSION: DVT as detailed above. Osei Chadwick Jr., MD Chest X-Ray 06/22/17 0000 Signed Impressions: Service Date/Time: Thursday, June 22, 2017 19:56 - CONCLUSION: Increased linear density at the bases bilaterally being more prominent on the right likely related to scarring or atelectasis. Torey Robert MD Objective Remarks GENERAL: Well-developed, well-nourished, in no acute distress. alert and orientated HEENT: Head is normocephalic without any lesions or masses noted. Facial features are symmetric. Eyes: Extraocular muscles are intact. Conjunctivae were clear. NECK: Supple without any masses. Trachea midline no deviation. No JVD, CARDIAC: Regular rhythm, regular rate. S1/S2 are heard. No murmurs gallops or rubs. LUNGS: Clear to auscultation bilaterally. No wheeze, rhonchi or rales. No use of accessory muscles on inspiration or expiration. ABDOMEN: Soft, nontender. Mild abdominal distention. Bowel sounds heard in all 4 quadrants. No organomegaly or masses. Negative rebound, negative guarding EXTREMITIES: No edema, pulses are equal bilaterally. No cyanosis or clubbing NEUROLOGY: Mood and affect appear appropriate. Cranial nerves II through XII grossly intact. Moving all extremities, speech is clear A/P Assessment and Plan Systemic inflammatory response syndrome Patient still meets criteria with tachycardia, leukocytosis with bandemia Likely secondary to pain, DVT of the left upper extremity Blood cultures negative for 2 days Chest x-ray shows linear densities likely scarring or atelectasis Check influenza testing, strep pneumonia, Legionella DVT of the left upper extremity Continue heparin IV at this time Anticoagulation decision per hematology/oncology Intractable abdominal pain secondary to pancreatic cancer Patient is followed by Dr. Mulligan, with recent workup. Possible recurrent disease for T3 N1 M0 resected pancreatic cancer Patient is been prescribed pain management by oncology, however he ran out because he's been taking more than prescribed Awaiting hematology/oncology consultation for management Malfunctioning Mediport catheter Nursing staff indicates Mediport functioning at this time. Coronary artery disease status post stent with history of myocardial infarction Continue home medications Hypothyroidism Continue replacement therapy Bipolar disorder Continue home medications DVT prevention Patient on heparin IV Chaz Negrete Jun 24, 2017 15:23
[2017-06-24 16:00] VITALS: BP 141/86; PULSE 112; RESP 18; TEMP 96.2; O2SAT 90
[2017-06-24 20:00] VITALS: BP 119/82; PULSE 109; RESP 20; TEMP 98.9; O2SAT 88
--- NOTE | 2017-06-24 20:17 | MB ---
cc: CHRIS CRUZ,LATONIA Lloyd M.D. DATE OF CONSULTATION 06/24/17 DATE OF [address] Cruz REASON FOR CONSULTATION Dr. Cruz requests a consultation for Mr. Thompson with metastatic pancreatic cancer. HISTORY OF PRESENT ILLNESS Mr. Thompson is a 56-year-old man with locally advanced pancreatic cancer status post neoadjuvant chemotherapy with excellent response. He had definitive surgery and adjuvant therapy. While under the care of Dr. Kush Castanon, he was thought to have metastatic disease. He was receiving additional chemotherapy. Restaging CT PET scan shows resolution of all disease. Since no biopsy of the liver metastatic disease was performed, it is not clear that he had metastatic disease at all. His last CT PET scan from October 18 shows no evidence of metastatic disease. His chemotherapy was stopped. Follow up CT scan December 30, 2016 shows no evidence of recurrence. He was seen January 27 with PEG tube problems. He was advised to follow up in four months' time for repeat CT PET scan. He did not return until June 09. We coordinated CT PET scan which was performed June 19, 2017 that showed widespread abdominal metastatic disease. His pain management has been coordinated through his primary physician and multiple pain doctors. He was seen by Dr. Tobin. He has been discharged from several [facility] clinics since he uses marijuana as an adjunct for pain. He has a very high pain tolerance. He has bipolar disorder. It seems to be controlled at present. He was seen June 20, 2017 in outpatient clinic to review the CT PET scan results. We discussed the findings showing recurrent metastatic disease. We were coordinating an outpatient CT guided biopsy to confirm metastatic nature of his disease. He was pending followup after that. In the meantime, he has developed increasing abdominal pain which he has had. He reports being on short-acting morphine 30 mg q.8 h. That was not controlling his pain. He was having difficulty laying down. He developed left arm swelling that prompted him to come to the hospital. He was seen by Dr. Kota Hahn. Because of his moderate, nonradiating pain and recent diagnosis of pancreatic cancer, he was admitted. Doppler ultrasound of the left upper extremity confirmed deep vein thromboses from the left jugular vein, subclavian vein, salivary vein, basilic vein, brachial vein, the extensor distal aspect of basilic vein and the mid distal brachial vein. The radial ulnar veins are patent. His has port is on the left side. Mr. Thompson continues to complain of pain. He has very high pain medication tolerance. He complains of increasing abdominal girth. He is complaining of his IV fluid. He is taking clear as well. He has not moved his bowels. He denies any urinary complaints. His is sitting at bedside. PAST MEDICAL HISTORY 1. Pancreatic cancer 2. Abdominal carcinomatosis 3. Coronary artery disease, 4. Bipolar disorder, 5. Chronic pain. 6. Left upper extremity deep vein thromboses. 7. Chronic anemia. 8. Hypoalbuminemia. PAST SURGICAL HISTORY 1. Cardiac stent x2 2. Whipple procedure 3. Port placement. 4. Right shoulder surgery. ALLERGIES CODEINE SOCIAL HISTORY He is , disabled. He has a significant other sitting at the bedside who he calls his . He smokes daily. He has over a 30 pack-year smoking history. Denies any alcohol. He uses marijuana. FAMILY HISTORY Mother is alive. Father is alive. No other family history of pancreatic cancer. MEDICATIONS Current, 1. Unfractionated Heparin. 2. Morphine p.r.n. 3. Folic acid 4. Creon. 5. Protonix. 6. Zoloft. 7. Synthroid. 8. Vancomycin 9. Oramorph. 10. Piperacillin Tazobactam. 11. Zofran p.r.n. 12. Shira-Colace. 13. Klonopin. 14. Seroquel. PHYSICAL EXAMINATION VITAL SIGNS: Temperature 96.2, heart rate 112, respiratory rate 18, blood pressure 141/96, saturation 90% GENERAL: Mr. Thompson is a well-developed, well-nourished man who looks his stated age. HEENT: Pupils are round, reactive to light and accommodation. Sclerae are nonicteric. Oropharynx with poor dentition. NECK: Supple. LUNGS: Clear to auscultation. CARDIOVASCULAR: Tachycardia. ABDOMEN: Extremely distended. No fluid wave. LOWER EXTREMITIES: No edema. NEUROLOGIC: Exam is nonfocal. Port is on the left side. His left arm is extremely swollen up to the left chest and shoulder. LABORATORY DATA Sodium 134, hemoglobin of 12.7 with platelet count of 268. Last CA 19-9 from 06/20 is normal. ASSESSMENT/PLAN Mr. Thompson is a 56-year-old man with history of chronic pain, bipolar disorder admitted with increasing abdominal pain, increasing abdominal were and new left upper extremity deep vein thromboses associated with his port. I discussed at length with Mr. Thompson and his significant other/ present at the consultation the need for continued anticoagulation despite that this is an upper extremity deep vein thromboses. It is extensive. I recommend low-molecular weight heparin. We discussed the data on low-molecular weight heparin versus new oral anticoagulant. I am concerned about his abdominal distension. He has no signs of obstruction at present. For now, I will continue unfractionated heparin until biopsy. His unfractionated heparin will be stopped to proceed with biopsy. He may resume on unfractionated heparin versus low-molecular weight heparin after the biopsy is performed. Attempted to review the site of biopsy with radiology limited by lack of access for the outpatients scans. He has soft tissue masses consistent with abdominal carcinomatosis in the anterior abdominal area. He also has liver metastatic disease. One liver lesion is clearly seen on non-contrast CT scans, however, other liver lesions are less apparent although very PET positive. I will defer to radiology as the site of the biopsy to confirm a diagnosis of metastatic pancreatic cancer. A tissue confirmation is needed. He will follow up in outpatient clinic for continued treatment for his pancreatic cancer with systemic therapy. Low-molecular weight heparin estimated at 80 mg once daily would be sufficient. His significant other states she can give a shot. Case management to assist in determining coverage for the low-molecular weight heparin. Pending biopsy, he may follow up outpatient. Latonia Mulligan MD RAD/SA /6:55 PM /7:54 PM
[2017-06-24] MEDS ORDERED: MORPHINE SULFATE 15 MG TAB PO PRN (21:00)
[2017-06-24] MEDS: QUEtiapine FUMARATE 100 MG TAB PO SCH (21:33)
[2017-06-24] MEDS: MORPHINE SULFATE 8 MG/ML INJ IV PUSH PRN (23:23)
[2017-06-25] VITALS: BP 114/77; PULSE 113; RESP 20; TEMP 97.8; O2SAT 87
[2017-06-25 03:30] LABS: APTT (PATIENT) 28.6 SEC (24.3-30.1)
[2017-06-25 04:00] VITALS: O2SAT 93
[2017-06-25] MEDS: MORPHINE SULFATE 8 MG/ML INJ IV PUSH PRN ×2 (04:29→09:02)
[2017-06-25] MEDS: PIPERACIL-TAZO 4.5 GM PREMIX 100 ML IV SCH ×3 (04:29→15:45)
[2017-06-25] MEDS: MORPHINE SULFATE 30 MG CONTROLLED RELEASE TAB PO SCH ×2 (05:52→13:45)
[2017-06-25] MEDS: LEVOTHYROXINE SODIUM 75 MCG TAB PO SCH (05:52)
[2017-06-25 08:00] VITALS: BP 101/77; PULSE 103; RESP 18; TEMP 98.1; O2SAT 95
[2017-06-25] MEDS: SERTRALINE HCL 100 MG TAB PO SCH (08:01)
[2017-06-25] MEDS: PANTOPRAZOLE SOD 40 MG DELAYED RELEASE TAB PO SCH (08:02)
[2017-06-25] MEDS: DOCUSATE SODIUM 50 MG/SENNA 8.6 MG TAB PO SCH (08:02)
[2017-06-25] MEDS: clonazePAM 0.5 MG TAB PO SCH (08:02)
[2017-06-25] MEDS: LIPASE/PROTEASE/AMYLASE (12,000/38,000/60,000) CAP PO SCH (08:02)
[2017-06-25] MEDS: FOLIC ACID 1 MG TAB PO SCH (08:02)
[2017-06-25] MEDS: SODIUM CHLORIDE 0.9% FLUSH 10 ML FLUSH IV FLUSH SCH (08:04)
[2017-06-25] MEDS: HEPARIN-D5W 25,000 U/250 ML 250 ML IV PRN (08:51)
[2017-06-25 09:52] LABS: APTT (PATIENT) 29.5 SEC (24.3-30.1)
[2017-06-25] MEDS ORDERED: VANCOMYCIN TROUGH ONE (10:45)
[2017-06-25] MEDS: VANCOMYCIN INJ 1,250 MG in SODIUM CHLOR 0.9% 250 ML INJ 250 ML IV SCH (11:33)
[2017-06-25 12:00] VITALS: BP 116/81; PULSE 94; RESP 18; TEMP 97.9; O2SAT 95
--- NOTE | 2017-06-25 13:29 | HHI.PR ---
Subjective Remarks Patient seen and examined today for follow-up on intractable abdominal pain, DVT secondary to pancreatic cancer. Apparently pain control is working well for the patient because he was somnolent and difficult to keep awake. Plans for a CT-guided biopsy today and anticoagulation by hematology. Possible discharge once that is complete Objective Vital Signs Date Time Temp Pulse Resp B/P (MAP) Pulse Ox O2 Delivery O2 Flow Rate FiO2 06/25/17 09:30 Nasal Cannula 2.00 06/25/17 08:00 98.1 103 18 101/77 (85) 95 06/25/17 04:00 93 06/25/17 00:00 97.8 113 20 114/77 (89) 87 06/24/17 23:40 Nasal Cannula 2.00 06/24/17 20:00 98.9 109 20 119/82 (94) 88 Automatic Cuff Manual Cuff/Auscultation 06/24/17 17:07 18 06/24/17 16:00 96.2 112 18 141/86 (104) 90 06/24/17 15:01 18 I/O 06/24/17 06/24/17 06/24/17 06/25/17 06/25/17 06/25/17 07:00 15:00 23:00 07:00 15:00 23:00 Intake Total 120 ml 600 ml 1541 ml Balance 120 ml 600 ml 1541 ml Intake Oral 120 ml 600 ml 720 ml IV Total 821 ml # Voids 1 1 3 # Bowel Movements 0 Result Diagram: 06/23/17 1641 06/23/17 1445 Objective Remarks GENERAL: Well-developed, well-nourished, in no acute distress. Somnolent but orientated HEENT: Head is normocephalic without any lesions or masses noted. Facial features are symmetric. Eyes: Extraocular muscles are intact. Conjunctivae were clear. NECK: Supple without any masses. Trachea midline no deviation. No JVD, CARDIAC: Regular rhythm, regular rate. S1/S2 are heard. No murmurs gallops or rubs. LUNGS: Clear to auscultation bilaterally. No wheeze, rhonchi or rales. No use of accessory muscles on inspiration or expiration. ABDOMEN: Soft, nontender. Mild abdominal distention. Bowel sounds heard in all 4 quadrants. No organomegaly or masses. Negative rebound, negative guarding EXTREMITIES: No edema, pulses are equal bilaterally. No cyanosis or clubbing NEUROLOGY: Mood and affect appear appropriate. Cranial nerves II through XII grossly intact. Moving all extremities, speech is clear A/P Assessment and Plan Systemic inflammatory response syndrome Patient still meets criteria with tachycardia, leukocytosis with bandemia Likely secondary to pain, DVT of the left upper extremity Blood cultures negative for 3 days Chest x-ray shows linear densities likely scarring or atelectasis Influenza, legionella, streptococcal testing all negative DVT of the left upper extremity Continue heparin IV at this time Anticoagulation decision per hematology/oncology Intractable abdominal pain secondary to pancreatic cancer Patient is followed by Dr. Mulligan, with recent workup. 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 Coronary artery disease status post stent with history of myocardial infarction Continue home medications Hypothyroidism Continue replacement therapy Bipolar disorder Continue home medications DVT prevention Patient on heparin IV Discharge Planning Discharge planning once cleared by hematology/oncology. Chaz Negrete Jun 25, 2017 13:29
[2017-06-25 14:15] LABS: AUTOMATED NEUTROPHIL # 21.9 TH/MM3 (1.8-7.7); BASOPHIL # 0.5 TH/MM3 (0-0.2); BASOPHIL % 1.7 % (0.0-2.0); EOSINOPHIL # 1.9 TH/MM3 (0-0.4); EOSINOPHIL % 6.7 % (0.0-4.0); HEMATOCRIT 33.9 % (39.0-51.0); LYMPH % 5.1 % (9.0-44.0); LYMPHOCYTE # 1.4 TH/MM3 (1.0-4.8); MEAN CELL VOLUME 93.8 FL (80.0-100.0); MEAN CORPUSCULAR HEMOGLOBIN 30.3 PG (27.0-34.0); MEAN CORPUSCULAR HGB CONC 32.3 % (32.0-36.0); MONO % 7.8 % (0.0-8.0); NEUT % 78.7 % (16.0-70.0); PLATELET COUNT 296 TH/MM3 (150-450); RED BLOOD COUNT 3.62 MIL/MM3 (4.50-5.90); RED CELL DISTRIBUTION WIDTH 14.5 % (11.6-17.2); WHITE BLOOD COUNT 27.9 TH/MM3 (4.0-11.0)
[2017-06-25 14:17] LABS: HEMO FLAGS AUTO DIFF
[2017-06-25 14:20] LABS: POTASSIUM 3.9 MEQ/L (3.5-5.1)
[2017-06-25 14:24] LABS: BICARBONATE 20.2 MEQ/L (21.0-32.0)
[2017-06-25 15:17] LABS: BANDS 12 % (0-6); EOSINOPHILS 3 % (0-4); METAMYELOCYTES 2 % (0-1); NEUTROPHIL # MANUAL DIFF 22.9 TH/MM3 (1.8-7.7); PLATELET ESTIMATE SMEAR NORMAL (NORMAL); PLATELET MORPHOLOGY NORMAL (NORMAL); POLYS (SEG NEUTROPHILS) 68 % (16-70); SCAN/DIFF FINAL DIFF MANUAL; WBC DIFF SAMPLE 100
[2017-06-25 16:00] VITALS: BP 110/80; PULSE 96; RESP 18; TEMP 98.1; O2SAT 95
[2017-06-25 16:55] LABS: APTT (PATIENT) 24.4 SEC (24.3-30.1)
--- NOTE | 2017-06-25 16:56 | HHI.DCPOC ---
Discharge Care Plan Diagnosis: (1) Abdominal pain (2) Pancreatic cancer Goals to Promote Your Health * To prevent worsening of your condition and complications * To maintain your health at the optimal level Directions to Meet Your Goals Take your medications as prescribed Follow your dietary instruction Follow activity as directed Keep your appointments as scheduled Take your immunizations and boosters as scheduled If your symptoms worsen call your PCP, if no PCP go to Urgent Care Center or Emergency Room Smoking is Dangerous to Your Health. Avoid second hand smoke Call the 24-hour hour crisis hotline for domestic abuse at Chaz Negrete Jun 25, 2017 16:56
[2017-06-25] MEDS ORDERED: ENOX80P SQ (16:59)
[2017-06-25] MEDS ORDERED: MORP1TAB25 PO (17:06)
[2017-06-25] MEDS ORDERED: MSIR15 PO (17:06)
--- NOTE | 2017-06-25 17:12 | HHI.DS ---
Discharge Summary Admission Date Jun 23, 2017 at 10:27 Discharge Date: Jun 25, 2017 Admitting Diagnosis intractable abdominal pain, SIRS, leukocytosis, bandemia (1) SIRS (systemic inflammatory response syndrome) ICD Code: R65.10 - Systemic inflammatory response syndrome (SIRS) of non- infectious origin without acute organ dysfunction Status: Acute (2) Port catheter in place ICD Code: Z95.828 - Presence of other vascular implants and grafts Status: Chronic (3) Bipolar 1 disorder ICD Code: F31.9 - Bipolar disorder, unspecified Status: Chronic (4) History of myocardial infarction ICD Code: I25.2 - History of myocardial infarction Status: Chronic (5) Pancreatic cancer ICD Code: C25.9 - Malignant neoplasm of pancreas, unspecified Status: Chronic (6) Abdominal pain ICD Code: R10.9 - Abdominal pain Status: Chronic Procedures None Brief History - From Admission Patient is a pleasant 56-year-old gentleman with locally advanced a cancer status post neoadjuvant chemotherapy and definitive surgery. Patient hasn't followed up locally with Dr. Plaza. He has chronic abdominal pain and apparently ran out of this because he was taking it more frequently than prescribed. Patient says he has recently been evaluated for possible recurrence of his pancreatic cancer. Patient reports increasing abdominal pain with associated nausea and vomiting. The pain has been severe. It was relieved with IV morphine in the emergency room. CBC/BMP: 06/25/17 1350 06/25/17 1350 Significant Findings Laboratory Tests Test 06/22/17 18:30 06/22/17 19:48 06/22/17 20:25 06/22/17 22:35 White Blood Count 26.7 TH/MM3 (4.0-11.0) Red Blood Count 4.18 MIL/MM3 (4.50-5.90) Hemoglobin 12.7 GM/DL (13.0-17.0) Hematocrit 38.2 % (39.0-51.0) Neutrophils (%) (Auto) 83.8 % (16.0-70.0) Lymphocytes (%) (Auto) 4.9 % (9.0-44.0) Basophils (%) (Auto) 2.3 % (0.0-2.0) Neutrophils # (Auto) 22.4 TH/MM3 (1.8-7.7) Monocytes # (Auto) 1.7 TH/MM3 (0-0.9) Eosinophils # (Auto) 0.7 TH/MM3 (0-0.4) Basophils # (Auto) 0.6 TH/MM3 (0-0.2) Neutrophils % (Manual) 75 % (16-70) Band Neutrophils % 9 % (0-6) Lymphocytes % 8 % (9-44) Neutrophils # (Manual) 22.4 TH/MM3 (1.8-7.7) Platelet Morphology Comment CLUMPED (NORMAL) Random Glucose 156 MG/DL (74-106) Total Protein 6.0 GM/DL (6.4-8.2) Albumin 2.1 GM/DL (3.4-5.0) Alkaline Phosphatase 190 U/L (45-117) Sodium Level 133 MEQ/L (136-145) Chloride Level 97 MEQ/L (98-107) Lipase 36 U/L (73-393) Lactic Acid Level 2.7 mmol/L (0.4-2.0) 2.1 mmol/L (0.4-2.0) Urine Color DREW (YELLW/STRAW) Urine Specific [place] GREATER THAN 1.035 Urine Protein 30 mg/dL (NEG-TRACE) Urine RBC 4-9 /hpf (0-3) Urine Calcium Oxalate Crystals MOD /hpf (NONE) Urine Bacteria FEW /hpf (NONE) Urine Hyaline Casts 15-19 /lpf (RARE) Urine Mucus MANY /lpf (OCC) Urine Sperm OCC (NONE) Test 06/23/17 14:45 06/23/17 16:41 06/24/17 01:55 06/24/17 13:05 White Blood Count 24.9 TH/MM3 (4.0-11.0) 22.8 TH/MM3 (4.0-11.0) Red Blood Count 3.89 MIL/MM3 (4.50-5.90) 4.41 MIL/MM3 (4.50-5.90) Hemoglobin 11.9 GM/DL (13.0-17.0) 12.7 GM/DL (13.0-17.0) Hematocrit 37.0 % (39.0-51.0) Neutrophils (%) (Auto) 76.1 % (16.0-70.0) Lymphocytes (%) (Auto) 4.8 % (9.0-44.0) Eosinophils (%) (Auto) 9.7 % (0.0-4.0) Basophils (%) (Auto) 2.8 % (0.0-2.0) Neutrophils # (Auto) 19.0 TH/MM3 (1.8-7.7) Monocytes # (Auto) 1.6 TH/MM3 (0-0.9) Eosinophils # (Auto) 2.4 TH/MM3 (0-0.4) Basophils # (Auto) 0.7 TH/MM3 (0-0.2) Toxic Granulation 1+ (NORMAL) Total Protein 5.2 GM/DL (6.4-8.2) Albumin 1.8 GM/DL (3.4-5.0) Calcium Level 7.9 MG/DL (8.5-10.1) Alkaline Phosphatase 181 U/L (45-117) Sodium Level 134 MEQ/L (136-145) Mean Corpuscular Hemoglobin Concent 31.0 % (32.0-36.0) Prothrombin Time 12.5 SEC (9.8-11.6) Activated Partial Thromboplast Time 23.9 SEC (24.3-30.1) Vancomycin Level Trough 11.0 MCG/ML (5.0-10.0) Test 06/25/17 03:00 06/25/17 09:10 06/25/17 13:50 06/25/17 16:27 Vancomycin Level Trough 23.7 MCG/ML (5.0-10.0) White Blood Count 27.9 TH/MM3 (4.0-11.0) Red Blood Count 3.62 MIL/MM3 (4.50-5.90) Hemoglobin 10.9 GM/DL (13.0-17.0) Hematocrit 33.9 % (39.0-51.0) Neutrophils (%) (Auto) 78.7 % (16.0-70.0) Lymphocytes (%) (Auto) 5.1 % (9.0-44.0) Eosinophils (%) (Auto) 6.7 % (0.0-4.0) Neutrophils # (Auto) 21.9 TH/MM3 (1.8-7.7) Monocytes # (Auto) 2.2 TH/MM3 (0-0.9) Eosinophils # (Auto) 1.9 TH/MM3 (0-0.4) Basophils # (Auto) 0.5 TH/MM3 (0-0.2) Band Neutrophils % 12 % (0-6) Lymphocytes % 6 % (9-44) Monocytes % 9 % (0-8) Neutrophils # (Manual) 22.9 TH/MM3 (1.8-7.7) Metamyelocytes 2 % (0-1) Blood Urea Nitrogen 23 MG/DL (7-18) Random Glucose 133 MG/DL (74-106) Calcium Level 8.4 MG/DL (8.5-10.1) Sodium Level 134 MEQ/L (136-145) Carbon Dioxide Level 20.2 MEQ/L (21.0-32.0) Estimat Glomerular Filtration Rate 63 ML/MIN (>89) Lactic Acid Level 2.6 mmol/L (0.4-2.0) Imaging Last Impressions Upper Extremity Ultrasound 06/23/17 0000 Signed Impressions: Service Date/Time: Friday, June 23, 2017 12:58 - CONCLUSION: DVT as detailed above. Osei Chadwick Jr., MD Chest X-Ray 06/22/17 0000 Signed Impressions: Service Date/Time: Thursday, June 22, 2017 19:56 - CONCLUSION: Increased linear density at the bases bilaterally being more prominent on the right likely related to scarring or atelectasis. Torey Robert MD Hospital Course 56 year-old male with known history of poorly differentiated adenocarcinoma of the pancreas which now possible recurrent disease T3 N1 M0, presented to the hospital because of intractable abdominal pain. Patient was managed by pain management facility and apparently the pain was so severe that he has taken more than prescribed and ran out of pain medication. Patient came to emergency department and found to have multiple medical problems in the criteria for service, likely secondary to recurrent cancer, abdominal pain. Patient was admitted with significant pain medication for pain control. Patient did have left upper extremity edema and underwent ultrasound which did show DVT that extends to the left jugular vein, subclavian vein, axillary vein, basilic vein and brachial vein. Oncology was consulted for recommendations. Patient was started on heparin IV. Patient was undergoing outpatient workup for biopsy to be performed for recurrent abdominal cancer. Was planning on obtaining biopsy while he is admitted this time. However patient deferred biopsy. He would like to undergo procedure under anesthesia. This was discussed with hematology who indicated that the patient may be discharged home on Lovenox which was described to the patient already. Teletype Adjuster/oncologist indicates that they will continue to proceed with their outpatient scheduling of his biopsy. Patient appears be clinically stable this time. Pain is controlled on medication. Patient was counseled on follow-up with medical record librarian , oncologist. Patient should follow-up with his pain management doctor for continued pain control. Will plan discharge accordingly. Pt Condition on Discharge: Stable Discharge Disposition: Discharge Home Discharge Time: > 30 minutes Discharge Instructions DIET: Follow Instructions for: As Tolerated, No Restrictions Activities you can perform: Regular-No Restrictions Activities to Avoid: Driving Follow up Referrals: Oncology/Hematology - 1 Week with Helena Mulligan MD PCP Follow-up - 1 Week New Medications: Enoxaparin Inj (Lovenox Inj) 80 mg/0.8 ML Syr 80 MG SQ DAILY for Blood Clot Prevention for 30 Days, SYRINGE 0 Refills Morphine ER (Morphine ER) 30 Mg Tab 30 MG PO Q8HR for Pain Management, #30 TAB Morphine IR (Morphine IR) 15 Mg Tab 15 MG PO Q4H PRN for PAIN SCALE 4 TO 10, #30 TAB Continued Medications: Carvedilol (Carvedilol) 6.25 Mg Tab 3.125 MG PO DAILY, #60 TAB 0 Refills Cholecalciferol (Vitamin D3) 1,000 Unit Tab 1000 UNITS PO DAILY for Nutritional Supplement, #1 BOTTLE 0 Refills Clonazepam (Clonazepam) 0.5 Mg Tab 0.5 MG PO BID, #60 TAB 0 Refills Folic Acid (Folic Acid) 400 Mcg Tab 1 MG PO DAILY for Nutritional Supplement, TAB 0 Refills Levothyroxine (Synthroid) 75 Mcg Tab 75 MCG PO DAILY for Thyroid, #30 TAB 0 Refills Lisinopril (Lisinopril) 2.5 Mg Tab 2.5 MG PO DAILY, #30 TAB 0 Refills Nitroglycerin SL (Nitroglycerin SL) 0.4 Mg Subl 0.4 MG SL DIRECTED PRN for CHEST PAIN, #100 TAB.SL 0 Refills ONE TABLET UNDER THE TONGUE NEEDED FOR CHEST PAIN, MAY REPEAT EVERY FIVE MINUTES FOR A TOTAL OF 3 DOSES OR CALL 911 IF NO RELIEF Ondansetron (Ondansetron) 4 Mg Tab 4 MG PO Q8H PRN for PRN Pancrelipase (Creon) 12,000-38,000-60,000 Units Cap 1 CAP PO DIRECTED for Digestive Aid, #90 CAP 0 Refills Six times daily Pantoprazole (Protonix) 40 Mg Tab 40 MG PO DAILY for Reflux, #30 TAB 0 Refills Promethazine (Promethazine) 12.5 Mg Tab 12.5 MG PO Q6H PRN for NAUSEA OR VOMITING, TAB 0 Refills Quetiapine (Quetiapine) 100 Mg Tab 100 MG PO HS, #30 TAB 0 Refills Sertraline (Sertraline) 100 Mg Tab 100 MG PO DAILY, #30 TAB 0 Refills Discontinued Medications: Aspirin DR (Aspir-Low) 81 Mg Tabdr 81 MG PO DAILY Chaz Negrete Jun 25, 2017 17:12
[2017-06-25] MEDS ORDERED: ENOXAPARIN SODIUM 80 MG/0.8 ML SYRINGE SQ ONE (18:00)
== END 2017-06-25 19:55 | disposition home or self-care (01) | DRG 300 ==
LOC: PHED 17:55 → PHEDA 20:40 → PH3A 21:52 → OBSVTOIN 06-23 10:27
PROVIDERS: ADMIT Hospitalist; ATTEND Hospitalist
DX: I82.622 Acute embolism and thrombosis of deep veins of left upper extremity (principal); C78.7 Secondary malignant neoplasm of liver and intrahepatic bile duct; C79.89 Secondary malignant neoplasm of other specified sites; C25.9 Malignant neoplasm of pancreas, unspecified; R65.10 Systemic inflammatory response syndrome (SIRS) of non-infectious origin without acute organ dysfunction; T82.868A Thrombosis due to vascular prosthetic devices, implants and grafts, initial encounter; G89.3 Neoplasm related pain (acute) (chronic); I82.C12 Acute embolism and thrombosis of left internal jugular vein; I82.612 Acute embolism and thrombosis of superficial veins of left upper extremity; E88.09 Other disorders of plasma-protein metabolism, not elsewhere classified; D64.9 Anemia, unspecified; I25.10 Atherosclerotic heart disease of native coronary artery without angina pectoris; E03.9 Hypothyroidism, unspecified; I25.2 Old myocardial infarction; F12.90 Cannabis use, unspecified, uncomplicated; F17.200 Nicotine dependence, unspecified, uncomplicated; F31.9 Bipolar disorder, unspecified; Z92.21 Personal history of antineoplastic chemotherapy; Z95.5 Presence of coronary angioplasty implant and graft
CPT/HCPCS: 71010; 76937; 80048; 80053; 80202; 81001; 83605; 83690; 85007; 85025; 85027; 85610; 85730; 86301; 87040; 87449; 87804; 93971; 96523; J1642; J1644; J1650; J2270; J2405; J2543; J3370; J7030; J7050

== ENCOUNTER 2017-06-29 18:01 | Inpatient (IN) | payer OTHER, MEDICARE ==
[2017-06-29] VITALS (9 sets, daily range): BP systolic 79–204; BP diastolic 52–99; PULSE 101–109; RESP 18–40; TEMP 97–98.2; O2SAT 86–100
[~2017-06-29] VITALS: Ht 182.9 cm; Wt 82.0 kg
[~2017-06-29 18:01] MED LIST changes: -ASPI81TA19 PO; +ENOX80P SQ; +MORP1TAB25 PO; +MSIR15 PO
[2017-06-29] MEDS ORDERED: SUCCINYLCHOLINE CHLORIDE 200 MG/10 ML VIAL ONE (18:04)
[2017-06-29] MEDS ORDERED: ETOMIDATE 40 MG/20 ML VIAL ONE (18:05)
--- NOTE | 2017-06-29 18:27 | PD ---
HPI Chief Complaint: Respiratory Distress Time Seen by Provider: 18:20 Travel History International Travel<30 days: No Contact w/Intl Traveler<30days: No Traveled to known affect area: No History of Present Illness HPI 56-year-old male patient with history of pancreatic cancer, DVTs, PE, currently on Lovenox, presents to the ER brought in by EMS, complaining of several days of shortness of breath, was found in respiratory distress by EMS with a nonrebreather saturation of 94%. He is currently fairly disoriented in the ER. I'm not able to get much history out of him. Modifying Factors: None Associated Signs & Symptoms: Respiratory distress, altered mental status Risk Factors: Recent history of DVT, PE PFSH Past Medical History Hx Anticoagulant Therapy: Yes (BABY ASA ) Arthritis: Yes Autoimmune Disease: No Bipolar Disorder: Yes Anxiety: Yes Depression: Yes Heart Rhythm Problems: No Cancer: Yes (Pancreatic ) Cardiac Catheterization: Yes Cardiovascular Problems: Yes (AK TIMES 2 WITH STENTS) High Cholesterol: Yes Chemotherapy: Yes (pancreas cancer) Chest Pain: Yes Congestive Heart Failure: No Cerebrovascular Accident: No Diabetes: No Diminished Hearing: No Endocrine: Yes (Whipple procedure) Gastrointestinal Disorders: Yes (Gastroparesis ) GERD: No Genitourinary: Yes Headaches: Yes Hiatal Hernia: No Herniated Disk: Yes Hypertension: Yes (ON BP MEDS FOR HEART) Immune Disorder: No Implanted Vascular Access Dvce: Yes (Power port left chest ) Kidney Stones: Yes Musculoskeletal: Yes Neurologic: Yes Psychiatric: Yes Reproductive: No Respiratory: No Immunizations Current: Yes Migraines: Yes Myocardial Infarction: Yes Pancreatitis: Yes Radiation Therapy: No Renal Failure: No Seizures: No Thyroid Disease: Yes (Hypo-) Ulcer: No Past Surgical History Abdominal Surgery: Yes (Whipple, gallbladder removed) AICD: No Arteriovenous Shunt: No Body Medical Devices: Cardiac stents Cardiac Surgery: Yes (AK x2 with stents) Cholecystectomy: Yes Coronary Stent: Yes (X's 2) Ear Surgery: No Endocrine Surgery: Yes Eye Surgery: No Genitourinary Surgery: No Gynecologic Surgery: No Insulin Pump: No Joint Replacement: No Oral Surgery: Yes Pacemaker: No Thoracic Surgery: No Tympanostomy Tube: Yes Other Surgery: Yes (G-J tube ) Family History Family Myocardial Infarction: Yes (MOTHER) Social History Alcohol Use: No Tobacco Use: Yes (1/3 PPD) Substance Use: Yes (Marijuana occ. ) Allergies-Medications (Allergen,Severity, Reaction): Coded Allergies: codeine (Verified Adverse Reaction, Severe, GI UPSET, 06/29/17) Reported Meds & Prescriptions Reported Meds & Active Scripts Active Morphine IR (Morphine Sulfate) 15 Mg Tab 15 Mg PO Q4H PRN Morphine ER (Morphine Sulfate) 30 Mg Tab 30 Mg PO Q8HR Lovenox Inj (Enoxaparin Sodium) 80 mg/0.8 ML Syr 80 Mg SQ DAILY 30 Days Reported Clonazepam 0.5 Mg Tab 0.5 Mg PO BID Vitamin D3 (Cholecalciferol) 1,000 Unit Tab 1,000 Units PO DAILY Folic Acid 400 Mcg Tab 1 Mg PO DAILY Creon (Amylase/Lipase/Protease) 12,000-38,000-60,000 Units Cap 1 Cap PO DIRECTED Six times daily Protonix (Pantoprazole Sodium) 40 Mg Tab 40 Mg PO DAILY Sertraline (Sertraline HCl) 100 Mg Tab 100 Mg PO DAILY Quetiapine (Quetiapine Fumarate) 100 Mg Tab 100 Mg PO HS Promethazine (Promethazine HCl) 12.5 Mg Tab 12.5 Mg PO Q6H PRN Ondansetron (Ondansetron HCl) 4 Mg Tab 4 Mg PO Q8H PRN Lisinopril 2.5 Mg Tab 2.5 Mg PO DAILY Carvedilol 6.25 Mg Tab 3.125 Mg PO DAILY Nitroglycerin SL (Nitroglycerin) 0.4 Mg Subl 0.4 Mg SL DIRECTED PRN ONE TABLET UNDER THE TONGUE NEEDED FOR CHEST PAIN, MAY REPEAT EVERY FIVE MINUTES FOR A TOTAL OF 3 DOSES OR CALL 911 IF NO RELIEF Synthroid (Levothyroxine Sodium) 75 Mcg Tab 75 Mcg PO DAILY Review of Systems ROS Limitations: Altered Mental Status Physical Exam Narrative GENERAL: Well-developed middle age white male patient who is in moderate to severe respiratory distress. Awake, but disoriented and lethargic. SKIN: Focused skin assessment warm/dry. HEAD: Atraumatic. Normocephalic. EYES: Pupils equal and round. No scleral icterus. No injection or drainage. ENT: No nasal bleeding or discharge. Mucous membranes pink and moist. NECK: Trachea midline. No JVD. CARDIOVASCULAR: Fast rate and regular rhythm. No murmur appreciated. RESPIRATORY: Moderate accessory muscle use, abdominal breathing. Clear to auscultation. Breath sounds equal bilaterally. GASTROINTESTINAL: Abdomen soft, non-tender, nondistended. Hepatic and splenic margins not palpable. MUSCULOSKELETAL: No obvious deformities. No clubbing. No cyanosis. No edema. NEUROLOGICAL: Awake and lethargic. Face is symmetrical, we'll 4 extremities. Not following commands. PSYCHIATRIC: Disoriented ; insight and judgment poor. Data Data Last Documented VS Vital Signs Date Time Temp Pulse Resp B/P (MAP) Pulse Ox O2 Delivery O2 Flow Rate FiO2 06/29/17 18:51 100 Ventilator 06/29/17 18:42 101 18 79/58 (65) 06/29/17 18:30 100 Orders Orders Succinylcholine Inj (Quelicin Inj) (06/29/17 18:04) Etomidate Inj (Amidate Inj) (06/29/17 18:05) Complete Blood Count With Diff (06/29/17 18:20) Comprehensive Metabolic Panel (06/29/17 18:20) B-Type Natriuretic Peptide (06/29/17 18:20) Act Partial Throm Time (Ptt) (06/29/17 18:20) Prothrombin Time / Inr (Pt) (06/29/17 18:20) Ckmb (Isoenzyme) Profile (06/29/17 18:20) Troponin I (06/29/17 18:20) Arterial Blood Gas (Abg) (06/29/17 18:20) Influenzae A/B Antigen (06/29/17 18:20) Blood Culture (06/29/17 18:20) Iv Access Insert/Monitor (06/29/17 18:20) Electrocardiogram (06/29/17 18:20) Ecg Monitoring (06/29/17 18:20) Oximetry (06/29/17 18:20) Oxygen Administration (06/29/17 18:20) Chest, Single Ap (06/29/17 18:20) Ct Pulmonary Angiogram (06/29/17 18:20) Sodium Chloride 0.9% Flush (Ns Flush) (06/29/17 18:30) Ng Gastric Tube Insert/Monitor (06/29/17 18:22) Etomidate Inj (Amidate Inj) (06/29/17 18:30) Succinylcholine Inj (Quelicin Inj) (06/29/17 18:30) Sodium Chloride 0.9% Flush (Ns Flush) (06/29/17 18:30) Propofol 1000 Mg/100 Ml Inj (Diprivan 10 (06/29/17 18:30) Neurological Rass Scale Q30MX2,Q2HX4,Q4H (06/29/17 18:22) Propofol 200 Mg/20 Ml Inj (Diprivan 200 (06/29/17 18:30) Ct Brain W/O Iv Contrast(Rout) (06/29/17 18:58) Admit Order (Ed Use Only) (06/29/17 18:58) Labs Laboratory Tests Test 06/29/17 18:50 [facility] Medical Decision Making Medical Screen Exam Complete: Yes Emergency Medical Condition: Yes Medical Record Reviewed: Yes Interpretation(s) EKG shows sinus tachycardia at a rate of 100 bpm. Low voltage notable. I do not see any signs of acute ST-T elevations or depressions. Laboratory Tests Test 06/29/17 18:50 Differential Diagnosis Massive PE versus pneumonia versus metabolic issues versus sepsis versus CHF Narrative Course Patient was intubated due to severe respiratory distress and disorientation. Suspicion is that he has a worsening PE considering the history. Workup was initiated. Case was discussed with Dr. Rosales, certified caregiver, for admission for further treatment. Aggregate critical care time was 30 minutes. Time to perform other separately billable procedures was not included in the critical care time. My time did not include minutes spent treating any other patients simultaneously or on activities that did not directly contribute to the patient's treatment. The services I provided to this patient were to treat and/or prevent clinically significant deterioration that could result in: Respiratory distress, respiratory arrest, I provided critical care services requiring my management, as noted below: Chart data review, documentation time, medication orders and management, vital sign assessments/reviewing monitor data, ordering and reviewing lab tests, ordering and interpreting/reviewing x-rays and diagnostic studies, care of the patient and discussion of the patient with the admitting physicians. Procedures Procedure Narrative The patient is in severe respiratory distress and the following procedure was performed: INTUBATION: The patient was put in optimal position for the procedure. Rapid sequence intubation was initiated by me using 20 milligrams of etomidate IV and 100 milligrams of succinylcholine] IV. The patient was intubated with a 7.5 cuffed endotracheal tube. Tube placement was confirmed by visualization of the tube and balloon passing through the cords, capnometry and subsequent chest x- ray. Breath sounds were equal and well aerated bilaterally postintubation. No breath sounds over stomach. Patient tolerated procedure well. Diagnosis Primary Impression: Respiratory distress Additional Impression: Endotracheally intubated Admitting Information Admitting Physician Requests: Admit Christos Bryant MD Jun 29, 2017 18:27
[2017-06-29] MEDS ORDERED: PROPOFOL 200 MG/20 ML AMP IV ONE (18:30)
[2017-06-29] MEDS ORDERED: SODIUM CHLORIDE 0.9% FLUSH 10 ML FLUSH IVF PRN ×2 (18:30)
[2017-06-29] MEDS ORDERED: ETOMIDATE 20 MG/10 ML VIAL IVP ONE (18:30)
[2017-06-29] MEDS ORDERED: SUCCINYLCHOLINE CHLORIDE 200 MG/10 ML VIAL IV PUSH ONE (18:30)
[2017-06-29] MEDS ORDERED: PROPOFOL 1000 MG/100 ML INJ 100 ML IV PRN (18:30)
[2017-06-29] MEDS ORDERED: MAGNESIUM HYDROXIDE SUSP 30 ML CUP PO PRN (19:15)
[2017-06-29] MEDS ORDERED: ONDANSETRON HCL 4 MG/2 ML VIAL IV PUSH PRN (19:15)
[2017-06-29] MEDS ORDERED: POTASSIUM CHLORIDE 25 MEQ EFFERVESCENT TAB PO PRN (19:30)
[2017-06-29 19:41] LABS: AUTOMATED NEUTROPHIL # 34.8 TH/MM3 (1.8-7.7); BASOPHIL # 0.1 TH/MM3 (0-0.2); BASOPHIL % 0.3 % (0.0-2.0); EOSINOPHIL # 0.7 TH/MM3 (0-0.4); EOSINOPHIL % 1.6 % (0.0-4.0); LYMPH % 5.6 % (9.0-44.0); LYMPHOCYTE # 2.3 TH/MM3 (1.0-4.8); MEAN CELL VOLUME 100.1 FL (80.0-100.0); MEAN CORPUSCULAR HEMOGLOBIN 29.9 PG (27.0-34.0); MONO % 8.4 % (0.0-8.0); NEUT % 84.1 % (16.0-70.0); PLATELET COUNT 150 TH/MM3 (150-450); WHITE BLOOD COUNT 41.4 TH/MM3 (4.0-11.0)
[2017-06-29 19:43] LABS: HEMO FLAGS AUTO DIFF; MEAN CORPUSCULAR HGB CONC 29.9 % (32.0-36.0)
[2017-06-29 19:44] LABS: ANION GAP 17 MEQ/L (5-15); AST (GOT) 84 U/L (15-37); BLOOD UREA NITROGEN 60 MG/DL (7-18); CHLORIDE 105 MEQ/L (98-107); GLOMERULAR FILTRATION RATE 26 ML/MIN (>89); POTASSIUM 5.3 MEQ/L (3.5-5.1); SODIUM (NA) 136 MEQ/L (136-145)
[2017-06-29] MEDS ORDERED: fentaNYL DRIP 250 ML IV PRN (19:45)
[2017-06-29 19:48] LABS: ALKALINE PHOSPHATASE 169 U/L (45-117); ALT (GPT) 35 U/L (12-78); CREATINE KINASE 116 U/L (39-308); TOTAL BILIRUBIN ADULT 0.5 MG/DL (0.2-1.0)
--- NOTE | 2017-06-29 19:48 | HHI.HP ---
[facility] Critical Care Medicine Primary Care Physician Non-Staff Admission Diagnosis respiratory distress/intubated/suspected PE Diagnosis: Chief Complaint: shortness of breath Travel History International Travel<30 Days: No Contact w/Intl Traveler <30 Da: No Traveled to Known Affected Are: No History of Present Illness This is a 56yM with history of widely metastatic pancreatic cancer with evidence of abdominal carcinomatosis who was recently admitted on 06/23 with complaints of LE edema and found to have LE DVTs. He was started on anticoagulation at that point. He represents with acute shortness of breath, worsening for the last few days. He acutely decompensated in the emergency department and was intubated emergently. He remains hypoxic with severe metabolic acidosis with pH < 7.2. No additional information is obtainable from the patient. I evaluated the patient in the emergency department after he was emergently intubated. the remainder of the history is obtained from the medical record and his recent hospital admission a few days ago. ROS unobtainable. CT PE protocol is positive for multiple bilateral PEs, as well as SVC and IVC thrombus. CT abdomen/pelvis is positive for large abdominal necrotic mass as well as large amount of ascites, peritoneal carcinomatosis. Lactate is 10. pH is 7.1. Elevated AST/ALT, INR 2.3, WBC 41k. I had a long discussion with his regarding his care. I explained that all of his organs were failing as a result of a combination of his very aggressive cancer and his bilateral pulmonary emboli. He remains in shock and in distress. I explained that likely he would from his multi-organ failure. She expressed that she wished the patient to be DNR: "if his heart stops, let him go." She did want us to continue aggressive measures overnight and see if any organ function improved. She expressed understanding of the gravity of his illness. Review of Systems ROS Limitations: Clinical Condition, Intubated, Altered Mental Status, Unresponsive Past Family Social History Allergies: Coded Allergies: codeine (Verified Adverse Reaction, Severe, GI UPSET, 06/29/17) Past Medical History Pancreatic cancer Coronary artery disease with stents Past Surgical History cardiac stents 2, Whipple Port placed Reported Medications Morphine IR (Morphine Sulfate) 15 Mg Tab 15 Mg PO Q4H PRN Morphine ER (Morphine Sulfate) 30 Mg Tab 30 Mg PO Q8HR Lovenox Inj (Enoxaparin Sodium) 80 mg/0.8 ML Syr 80 Mg SQ DAILY 30 Days Clonazepam 0.5 Mg Tab 0.5 Mg PO BID Vitamin D3 (Cholecalciferol) 1,000 Unit Tab 1,000 Units PO DAILY Folic Acid 400 Mcg Tab 1 Mg PO DAILY Creon (Amylase/Lipase/Protease) 12,000-38,000-60,000 Units Cap 1 Cap PO DIRECTED Six times daily Protonix (Pantoprazole Sodium) 40 Mg Tab 40 Mg PO DAILY Sertraline (Sertraline HCl) 100 Mg Tab 100 Mg PO DAILY Quetiapine (Quetiapine Fumarate) 100 Mg Tab 100 Mg PO HS Promethazine (Promethazine HCl) 12.5 Mg Tab 12.5 Mg PO Q6H PRN Ondansetron (Ondansetron HCl) 4 Mg Tab 4 Mg PO Q8H PRN Lisinopril 2.5 Mg Tab 2.5 Mg PO DAILY Carvedilol 6.25 Mg Tab 3.125 Mg PO DAILY Nitroglycerin SL (Nitroglycerin) 0.4 Mg Subl 0.4 Mg SL DIRECTED PRN ONE TABLET UNDER THE TONGUE NEEDED FOR CHEST PAIN, MAY REPEAT EVERY FIVE MINUTES FOR A TOTAL OF 3 DOSES OR CALL 911 IF NO RELIEF Synthroid (Levothyroxine Sodium) 75 Mcg Tab 75 Mcg PO DAILY Active Ordered Medications See MAR Family History Family is healthy and alive and well Social History No current alcohol, smokes at least half a pack daily and occasional marijuana use Physical Exam Vital Signs Vital Signs Date Time Temp Pulse Resp B/P (MAP) Pulse Ox O2 Delivery O2 Flow Rate FiO2 06/29/17 18:51 100 Ventilator 06/29/17 18:50 97.0 104 18 92/71 (78) 100 Ventilator 06/29/17 18:42 101 18 79/58 (65) 100 Ventilator 06/29/17 18:30 100 06/29/17 18:06 109 40 204/99 (134) 88 Physical Exam gen: middle-aged male, who appears much older than stated age, lying in bed, recently intubated, sedated. heent: perrl. mucous membranes moist chest: equal chest rise. 100% fio2. prvc. peep 5. cv: tachycardic rate, regular rhythm. sinus by telemetry. abd: soft, nontender, nondistended. no guarding. extr: 1+ peripheral edema. distal pulses 2+ neuro: RASS -5. recently intubated and sedated. Laboratory Laboratory Tests Test 06/29/17 18:50 Date/Time Source Procedure Growth Status 06/29/17 18:50 Blood Peripheral Aerobic Blood Culture Pending Received 06/29/17 18:50 Blood Peripheral Anaerobic Blood Culture Pending Received Imaging Last Impressions CT Angiography 06/29/17 1935 Signed Impressions: Service Date/Time: Thursday, June 29, 2017 19:44 - CONCLUSION: 1. Multiple pulmonary emboli identified bilaterally at the segmental and subsegmental branch level 2. Moderate sized left pleural effusion. 3. Bilateral pulmonary atelectasis and multiple small nodular densities bilaterally suspicious for pulmonary metastatic disease. The nodules are too small for biopsy. 4. Large central upper abdominal mass centered in the region of the pancreas. Moderate amount of ascites. 5. Multiple enlarged prevascular lymph nodes. Multiple enlarged lymph nodes also seen anterior to the heart measuring up to 2.4 cm in diameter. 6. Possible 2 cm thrombus or mass at the apex of the left ventricle but a similar finding is seen on the prior CT of 2016. Willie Ray MD Head CT 06/29/17 1858 Signed Impressions: Service Date/Time: Thursday, June 29, 2017 19:38 - CONCLUSION: No acute intracranial findings. 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 Willie Ray MD Chest X-Ray 06/29/17 1820 Signed Impressions: Service Date/Time: Thursday, June 29, 2017 19:28 - CONCLUSION: 1. Endotracheal tube and nasogastric tube now in place. 2. New small left pleural effusion along with hazy left hemithorax opacity likely representing layering component of pleural effusion. 3. Increased patchy bilateral lower lung atelectasis versus consolidation left greater than right. Willie Ray MD Abdomen/Pelvis CT 06/29/17 0000 Signed Impressions: Service Date/Time: Thursday, June 29, 2017 19:44 - CONCLUSION: 1. Large 12 cm central abdominal mass in the pancreatic bed. 2. Large amount of ascites with omental caking indicating intraperitoneal spread of malignancy. 3. 1.7 cm filling defect in the IVC indicating thrombus. There is also a small clot seen in the SVC to be catheter tip. 4. Retroperitoneal lymphadenopathy. 5. Postsurgical findings of proximal small bowel and gas in the biliary tree likely postsurgical. Willie Ray MD ADDENDUM: Comparison is made to outside PET/CT study of 06/19/2017. No gross change in the size of large pancreatic mass or intraperitoneal metastasis. There has been an increase in the amount of ascites. The prominent left pleural effusion is new. Willie Ray MD Septic Shock Reassessment Septic shock perfusion: reassessment completed Caprini VTE Risk Assessment Caprini VTE Risk Assessment: Mod/High Risk (score >= 2) Caprini Risk Assessment Model Point Value = 1 Point Value = 2 Point Value = 3 Point Value = 5 Age 41-60 Minor surgery BMI > 25 kg/m2 Swollen legs Varicose veins or History of unexplained or recurrent spontaneous Oral contraceptives or hormone replacement Sepsis (< 1 month) Serious lung disease, including pneumonia (< 1 month) Abnormal pulmonary function Acute myocardial infarction Congestive heart failure (< 1 month) History of inflammatory bowel disease Medical patient at bed rest Age 61-74 Arthroscopic surgery Major open surgery (> 45 min) Laparoscopic surgery (> 45 min) Malignancy Confined to bed (> 72 hours) Immobilizing plaster cast Central venous access Age >= 75 History of VTE Family history of VTE Factor V Leiden Prothrombin [id number] Lupus anticoagulant Anticardiolipin antibodies Elevated serum homocysteine Heparin-induced thrombocytopenia Other congenital or acquired thrombophilia Stroke (< 1 month) Elective arthroplasty Hip, pelvis, or leg fracture Acute spinal cord injury (< 1 month) Prophylaxis Regimen Total Risk Factor Score Risk Level Prophylaxis Regimen 0-1 Low Early ambulation 2 Moderate Order ONE of the following: *Sequential Compression Device (SCD) *Heparin 5000 units SQ BID 3-4 Higher Order ONE of the following medications: *Heparin 5000 units SQ TID *Enoxaparin/Lovenox 40 mg SQ daily (WT < 150 kg, CrCl > 30 mL/min) *Enoxaparin/Lovenox 30 mg SQ daily (WT < 150 kg, CrCl > 10-29 mL/min) *Enoxaparin/Lovenox 30 mg SQ BID (WT < 150 kg, CrCl > 30 mL/min) AND/OR *Sequential Compression Device (SCD) 5 or more Highest Order ONE of the following medications: *Heparin 5000 units SQ TID (Preferred with Epidurals) *Enoxaparin/Lovenox 40 mg SQ daily (WT < 150 kg, CrCl > 30 mL/min) *Enoxaparin/Lovenox 30 mg SQ daily (WT < 150 kg, CrCl > 10-29 mL/min) *Enoxaparin/Lovenox 30 mg SQ BID (WT < 150 kg, CrCl > 30 mL/min) AND *Sequential Compression Device (SCD) Assessment and Plan Assessment and Plan Assessment: 56yM with widely-metastatic pancreatic cancer with abdominal carcinomatosis who presents with acute hypoxic respiratory failure and evidence of multiorgan failure. He is very critically ill with nearly every organ acutely dysfunctional and worsening. Unlikely that he will survive this hospital stay. Will continue supportive care for now with DNR status and re- evaluate goals of care tomorrow. Neuro: Chronic Oncologic Pain RASS goal -2 avoid long-acting sedatives Fentanyl infusion for chronic pain and sedation Resp: Acute hypoxic respiratory failure Bilateral pulmonary emboli vent bundle hob at 30 degrees nebs wean fio2 for goal spo2 > 90% no SBT today given instability heparin drip for anticoagulation. CV: Cardiogenic shock secondary to PE start vasopressin to assist with shock, as this will have minimal effect on PVR goal map > 65 mmHg. 2L NS bolus trend lactates Renal: Acute Kidney Injury likely secondary to shock moer strict i/o's FEN/GI: Acute protein calorie malnutrition- severe Widely metastatic pancreatic cancer Peritoneal carcinomatosis Acute liver dysfunction Stage IV Pancreatic cancer NPO OGT to LIWS daily bmp Heme/ID: Coagulopathy secondary to acute liver dysfunction Leukocytosis Possible Sepsis metastatic pancreatic cancer send sputum, blood, urine cultures. daily cbc full dose anticoagulation with heparin drip: ANTHONY prevents use of lovenox at this time. if Cr improves, would prefer lovenox. consult oncology for ongoing recommendations daily coags Endocrine: Hyperglycemia of Critical Illness SSI, med, q6h Prophylaxis: SCDs full dose anticoagulation for PEs pepcid iv Lines: piv's Dispo: Admit to ICU. Critical Care time: 82 minutes, exclusive of separately billable procedures. Jose Rosales MD Jun 29, 2017 19:48
[2017-06-29] MEDS ORDERED: POTASSIUM PHOSPHATE INJ 30 MMOL in SODIUM CHLOR 0.9% 250 ML INJ 250 ML IV PRN (20:00)
[2017-06-29] MEDS ORDERED: MISCELLANEOUS NURSING INFORMATION XX SCH (20:00)
[2017-06-29] MEDS ORDERED: SODIUM PHOSPHATE INJ 30 MMOL in SODIUM CHLOR 0.9% 250 ML INJ 240 ML IV PRN (20:00)
[2017-06-29] MEDS ORDERED: MAGNESIUM SULFATE INJ 2 GM in SODIUM CHLORIDE 0.9% INJ 96 ML IV PRN (20:00)
[2017-06-29] MEDS ORDERED: POTASSIUM CHLOR 40 MEQ PREMIX 100 ML IV PRN ×2 (20:00)
[2017-06-29] MEDS ORDERED: CHLORHEXIDINE 0.12% (ORAL KIT) 15 ML CUP MT SCH (20:00)
[2017-06-29] MEDS ORDERED: DEXTROSE 50% IN WATER 50 ML VIAL(D50) IV PUSH PRN (20:00)
[2017-06-29] MEDS ORDERED: POTASSIUM PHOSPHATE MONOBASIC 500 MG TAB PO PRN (20:00)
[2017-06-29] MEDS ORDERED: MAGNESIUM OXIDE 400 MG TAB PO PRN (20:00)
[2017-06-29] MEDS ORDERED: CHLORHEXIDINE GLUCONATE 2 % 1 PACK (2 CLOTHS) TOP PRN (20:00)
[2017-06-29] MEDS ORDERED: POTASSIUM PHOSPHATE MONOBASIC 500 MG TAB PO/TUBE PRN (20:00)
[2017-06-29] MEDS ORDERED: RESP: ALBUTEROL 2.5 MG/IPRATROPIUM 0.5 MG NEB (PRN) INH (20:00)
[2017-06-29] MEDS ORDERED: ACETAMINOPHEN 325 MG TAB PO PRN (20:00)
[2017-06-29] MEDS ORDERED: POTASSIUM CHLOR 20 MEQ PREMIX 100 ML IV PRN ×2 (20:00)
[2017-06-29] MEDS ORDERED: MAGNESIUM SULFATE INJ 4 GM in SODIUM CHLORIDE 0.9% INJ 92 ML IV PRN (20:00)
--- NOTE | 2017-06-29 20:00 | RADRPT ---
EXAM DATE/TIME: 06/29/2017 19:28 [facility] COMPARISON: CHEST SINGLE AP, June 22, 2017, 19:56. INDICATIONS : Nonresponsive shortness of breath MEDICAL HISTORY : Hypothyroidism. Myocardial infarction. Hypercholesterolemia. Syncope. Migraines. Chest pain. Hyperten sreedhar. Gastroparesis. Pancreatitis. Gallstones. Kidney stones.Arthritis. Herniated disc. Chronic back pain. Liver disease. Pancreatic cancer. Chemotherapy.Anticoagulant therapy. SURGICAL HISTORY : Coronary artery stent. Cholecystectomy. Tympanostomy tube. Cardiac catheterization. Whipple procedure . Right shoulder surgery x2. GJ tube placement and removed. ENCOUNTER: Initial ACUITY: 1 day PAIN SCORE: Non-responsive. LOCATION: Bilateral chest FINDINGS: Single AP view of the chest. Endotracheal tube is in place the tip 3.8 cm above the jasmin. Left-side d [id number]-[id number] is in place with the tip in the SVC. Nasogastric tube is in place with the tip below the vyqji-yb-ecpe of the radiograph. Small left pleural effusion. Patchy opacity at the lung bases le ft greater than right indicating atelectasis versus mild consolidation. Hazy opacity in the left lung likely represents layering left pleural effusion. No evidence of pneumothorax. CONCLUSION: 1. Endotracheal tube and nasogastric tube now in place. 2. New small left pleural effusion along with hazy left hemithorax opacity likely representing layeri ng component of pleural effusion. 3. Increased patchy bilateral lower lung atelectasis versus consolidation left greater than right. Willie Ray MD on June 29, 2017 at 19:56 Board Certified Radiologist. This report was verified electronically.
[2017-06-29] MEDS ORDERED: IOHEXOL 350 MG/ML 10 ML VIAL (for RAD DIAG) IVCONTRAST ONE (20:01)
[2017-06-29 20:02] LABS: APTT (PATIENT) 30.8 SEC (24.3-30.1); CKMB 3.5 NG/ML (0.5-3.6); INTERNATIONAL NORMALIZED RATIO 2.3 RATIO; PROTHROMBIN TIME - PATIENT 23.5 SEC (9.8-11.6)
--- NOTE | 2017-06-29 20:07 | RADRPT ---
EXAM DATE/TIME: 06/29/2017 19:38 [facility] COMPARISON: CT BRAIN W/O CONTRAST, February 23, 2013, 17:47. INDICATIONS : Altered mental status. RADIATION DOSE: 63.64 CTDIvol (mGy) ; Tabletop CT Head MEDICAL HISTORY : Carcinoma, pancreas. Cardiovascular disease Hypertension. SURGICAL HISTORY : Cholecystectomy. ENCOUNTER: Initial ACUITY: 1 day PAIN SCALE: Non-responsive LOCATION: cranial TECHNIQUE: Multiple contiguous axial images were obtained of the head. Using automated exposure control and adj ustment of the mA and/or kV according to patient size, radiation dose was kept as low as reasonably a chievable to obtain optimal diagnostic quality images. DICOM format image data is available electro nically for review and comparison. FINDINGS: CEREBRUM: Evidence of an old insult in the right basal ganglia. No evidence of acute intracranial hemorrhage or extra-axial fluid collection. No mass effect or midline shift. No evidence of intracranial mass or a cute infarct. Ventricles within normal limits. POSTERIOR FOSSA: The cerebellum and brainstem are intact. The 4th ventricle is midline. The cerebellopontine angle i s unremarkable. EXTRACRANIAL: The visualized portion of the orbits is intact. SKULL: The calvaria is intact. No evidence of skull fracture. CONCLUSION: No acute intracranial findings. 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 Willie Ray MD on June 29, 2017 at 20:04 Board Certified Radiologist. This report was verified electronically.
[2017-06-29] MEDS ORDERED: SODIUM CHLOR 0.9% 1000 ML INJ 1,000 ML IV ONE ×2 (20:15)
[2017-06-29] MEDS ORDERED: Vancomycin Consult Pharmacy 1 EA OTHER SCH (20:15)
[2017-06-29 20:16] LABS: BANDS 18 % (0-6); CORRECTED NUCLEATED RBC 4 /100 WBC (0-0); METAMYELOCYTES 4 % (0-1); MYELOCYTES 4 % (0-0); NEUTROPHIL # MANUAL DIFF 38.1 TH/MM3 (1.8-7.7); POLYS (SEG NEUTROPHILS) 66 % (16-70); WBC DIFF SAMPLE 100
[2017-06-29 20:17] LABS: POLYCHROMASIA 5.4 % (0.0-1.9)
[2017-06-29 20:18] LABS: PLATELET ESTIMATE SMEAR LOW (NORMAL); PLATELET MORPHOLOGY NORMAL (NORMAL); SCAN/DIFF FINAL DIFF MANUAL
[2017-06-29 20:39] LABS: BLOOD GAS BASE EXCESS -14.8 mmol/L (-2-2); BLOOD GAS CARBOXYHEMOGLOBIN 0.9 % (0-4); BLOOD GAS HCO3 13 mmol/L (22-26); BLOOD GAS METHEMOGLOBIN 0.8 % (0-2); BLOOD GAS O2 HGB SATURATION 96 % (90-100); BLOOD GAS OXYGEN CONTENT 12.8 Vol % (12.0-20.0); BLOOD GAS PCO2 43 mmHg (38-42); BLOOD GAS PO2 146 mmHG (61-120); BLOOD GAS TOTAL HGB 9.3 G/DL (12.0-16.0); TEMP CORR TO 98.6
--- NOTE | 2017-06-29 20:39 | RADRPT ---
EXAM DATE/TIME: 06/29/2017 19:44 [facility] COMPARISON: CT PULMONARY ANGIOGRAM, October 29, 2015, 22:59. INDICATIONS : Respiratory distress; rule out pulmonary embolus. IV CONTRAST: 91 cc Omnipaque 350 (iohexol) IV ; Cumulative dose for multiple exams. RADIATION DOSE: 13.51 CTDIvol (mGy) MEDICAL HISTORY : Carcinoma, pancreas. Hypertension. Cardiovascular disease SURGICAL HISTORY : Cholecystectomy. ENCOUNTER: Initial ACUITY: 1 day PAIN SCALE: Non-responsive LOCATION: chest TECHNIQUE: Volumetric scanning of the chest was performed using a pulmonary embolism protocol MIP images were re constructed. Using automated exposure control and adjustment of the mA and/or kV according to patien t size, radiation dose was kept as low as reasonably achievable to obtain optimal diagnostic quality images. DICOM format image data is available electronically for review and comparison. Follow-up recommendations for detected pulmonary nodules are based at a minimum on nodule size and pa tient risk factors according to Fleischner Society Guidelines. FINDINGS: PULMONARY ARTERIES: Multiple filling defects are seen within the pulmonary arteries at the segmental level. These include d branches to the right lower lobe, right middle lobe, and left lower lobe. No filling defects in the central pulmonary arteries. There is a 2 cm filling defect at the apex of the left ventricle indicat ing possible thrombus. Similar finding is seen on the prior study of 2016 however. LUNGS: Patchy bilateral groundglass opacity in the lungs. Confluent opacity in the dependent portions of low er lobes indicating atelectasis. Multiple scattered subcentimeter nodular densities in the upper lobe s PLEURAE: Moderate-sized left pleural effusion. Small right pleural effusion. MEDIASTINUM: Multiple enlarged prevascular lymph nodes the largest measuring 1.7 x 1.4 cm on image #36. Coronary a rtery calcification. Extensive contrast-filled collaterals in the left axilla and system with a known left upper extremity DVT. Multiple enlarged lymph nodes anterior to the heart. MUSCULOSKELETAL: Within normal limits for patient age. MISCELLANEOUS: Large central upper abdominal mass is noted. Moderate amount of ascites in the abdomen. Endotracheal tube and nasogastric tube are in place. CONCLUSION: 1. Multiple pulmonary emboli identified bilaterally at the segmental and subsegmental branch level 2. Moderate sized left pleural effusion. 3. Bilateral pulmonary atelectasis and multiple small nodular densities bilaterally suspicious for pu lmonary metastatic disease. The nodules are too small for biopsy. 4. Large central upper abdominal mass centered in the region of the pancreas. Moderate amount of asci cristóbal. 5. Multiple enlarged prevascular lymph nodes. Multiple enlarged lymph nodes also seen anterior to the heart measuring up to 2.4 cm in diameter. 6. Possible 2 cm thrombus or mass at the apex of the left ventricle but a similar finding is seen on the prior CT of 2016. Willie Ray MD on June 29, 2017 at 20:23 Board Certified Radiologist. This report was verified electronically.
[2017-06-29 20:40] LABS: CRITICAL VALUE YES; DRAW SITE RT FEMORAL; FIO2 100 %; NUMBER OF ARTERIAL PUNCTURES 1; OXYGEN DEVICE VENTILATOR; STAT YES; ULNAR PULSE PRESENT; VENT SETTINGS VAC/18/550/+5/.100%
[2017-06-29 20:44] LABS: BACTERIA, URINE FEW /hpf; BLOOD, URINE NEG (NEG); GLUCOSE,URINE NEG (NEG); HYALINE CAST, URINE 33 /lpf (RARE); KETONE, URINE TRACE mg/dL (NEG); MUCUS URINE FEW /lpf (OCC); NITRITE,URINE NEG (NEG); PH, URINE 5.5 (5.0-8.5); URINE COLOR YELLOW (YELLW/STRAW)
--- NOTE | 2017-06-29 20:47 | RADRPT ---
EXAM DATE/TIME: 06/29/2017 19:44 This report includes an Addendum and supersedes previous reports for this exam. [facility] COMPARISON: CT ABDOMEN W/O CONTRAST, October 22, 2016, 19:44. CT ABDOMEN & PELVIS W CONTRAST, March 15, 2015, 11:19. INDICATIONS : Pancreatic cancer; evaluate for metastatic disease. IV CONTRAST: 91 cc Omnipaque 350 (iohexol) IV ; Cumulative dose for multiple exams. ORAL CONTRAST: No oral contrast ingested. RADIATION DOSE: 16.86 CTDIvol (mGy) MEDICAL HISTORY : Carcinoma, pancreas. Hypertension. SURGICAL HISTORY : Cholecystectomy. ENCOUNTER: Initial ACUITY: 1 day PAIN SCALE: Non-responsive LOCATION: abdomen TECHNIQUE: Volumetric scanning of the abdomen and pelvis was performed. Using automated exposure control and ad justment of the mA and/or kV according to patient size, radiation dose was kept as low as reasonably achievable to obtain optimal diagnostic quality images. DICOM format image data is available electro nically for review and comparison. FINDINGS: LOWER LUNGS: Moderate-sized left pleural effusion. LIVER: Diffuse fatty infiltration of the liver. SPLEEN: Spleen is decreased in size. PANCREAS: Large central abdominal mass centered in the expected region of the pancreatic head measuring 12 cm i n diameter. KIDNEYS: Normal in size and shape. There is no mass, stone or hydronephrosis. ADRENAL GLANDS: Within normal limits. VASCULAR: There is no aortic aneurysm. 1.7 cm filling defect is seen in the IVC indicating a thrombus. BOWEL/MESENTERY: Large amount of ascites. No evidence of bowel dilatation. No free air. Omental caking is noted sugges ting intraperitoneal spread of malignancy. ABDOMINAL WALL: Within normal limits. RETROPERITONEUM: Confluent retroperitoneal lymph nodes are noted at the level the kidneys measuring 6 cm x 2.7 cm in a ggregate. BLADDER: Pak catheter in place. REPRODUCTIVE: Within normal limits. INGUINAL: There is no lymphadenopathy or hernia. MUSCULOSKELETAL: Within normal limits for patient age. CONCLUSION: 1. Large 12 cm central abdominal mass in the pancreatic bed. 2. Large amount of ascites with omental caking indicating intraperitoneal spread of malignancy. 3. 1.7 cm filling defect in the IVC indicating thrombus. There is also a small clot seen in the SVC t o be catheter tip. 4. Retroperitoneal lymphadenopathy. 5. Postsurgical findings of proximal small bowel and gas in the biliary tree likely postsurgical. Willie Ray MD on June 29, 2017 at 20:37 Board Certified Radiologist. This report was verified electronically. ADDENDUM: Comparison is made to outside PET/CT study of 06/19/2017. No gross change in the size of large pancre atic mass or intraperitoneal metastasis. There has been an increase in the amount of ascites. The pro minent left pleural effusion is new. Willie Ray MD on June 29, 2017 at 22:05 Board Certified Radiologist. This report was verified electronically.
[2017-06-29] MEDS: RESP: ALBUTEROL 2.5 MG/IPRATROPIUM 0.5 MG NEB (SCH) INH (20:57)
[2017-06-29] MEDS ORDERED: DOCUSATE SODIUM 50 MG/SENNA 8.6 MG TAB PO SCH (21:00)
[2017-06-29] MEDS ORDERED: PIPERACIL-TAZO 3.375 GM PREMIX 50 ML IV SCH (21:00)
[2017-06-29] MEDS ORDERED: FAMOTIDINE 20 MG/2 ML VIAL IV PUSH SCH (21:00)
[2017-06-29 21:41] LABS: LACTIC ACID GHOST NOT REPORTABLE
[2017-06-29] MEDS ORDERED: VANCOMYCIN INJ 1,250 MG in SODIUM CHLOR 0.9% 250 ML INJ 250 ML IV ONE (22:00)
[2017-06-29] MEDS ORDERED: VANCOMYCIN INJ 1,750 MG in SODIUM CHLORID 0.9% 500 ML INJ 500 ML IV ONE (22:00)
[2017-06-29] MEDS ORDERED: VASOPRESSIN INJ 40 UNITS in DEXTROSE 5% IN WATER 100ML INJ 98 ML IV SCH ×2 (23:08)
[2017-06-29 23:10] LABS: COMMENT (UR) CATH-CULTURE IND; CULTURE IF INDICATED CATH CULTURE IND
[2017-06-29] MEDS ORDERED: HEPARIN-D5W 25,000 U/250 ML 250 ML IV PRN (23:15)
[2017-06-30] VITALS: PULSE 101
[2017-06-30] MEDS ORDERED: INSULIN NovoLIN REGULAR SUPPLEMENTAL SCALE SQ SCH
[2017-06-30 02:00] VITALS: PULSE 95
[2017-06-30 03:00] VITALS: BP 75/39; PULSE 78; RESP 22; TEMP 100.9; O2SAT 85
[2017-06-30] MEDS: RESP: ALBUTEROL 2.5 MG/IPRATROPIUM 0.5 MG NEB (SCH) INH (03:35)
[2017-06-30] MEDS ORDERED: SODIUM CHLOR 0.9% 1000 ML INJ 1,000 ML IV ONE (03:45)
[2017-06-30] MEDS ORDERED: SODIUM CHLOR 0.9% 1000 ML INJ 1,000 ML IV SCH (03:45)
[2017-06-30] MEDS ORDERED: CHLORHEXIDINE GLUCONATE 2 % 1 PACK (2 CLOTHS) TOP SCH (04:00)
--- NOTE | 2017-06-30 04:12 | HHI.DS ---
Summary Note Date of : Jun 30, 2017 Time Of : 03:36 Admission Date Jun 29, 2017 at 19:00 Admitting Diagnosis respiratory distress/intubated/suspected PE Diagnosis at Time of : (1) Pulmonary embolism ICD Code: I26.99 - Other pulmonary embolism without acute cor pulmonale Diagnosis: Principal (2) Cardiogenic shock ICD Code: R57.0 - Cardiogenic shock Diagnosis: Principal (3) Lactic acidosis ICD Code: E87.2 - Acidosis Diagnosis: Principal (4) Pancreatic cancer ICD Code: C25.9 - Malignant neoplasm of pancreas, unspecified Diagnosis: Principal Brief History This is a 56yM with history of widely metastatic pancreatic cancer with evidence of abdominal carcinomatosis who was recently admitted on 06/23 with complaints of LE edema and found to have LE DVTs. He was started on anticoagulation at that point. He represents with acute shortness of breath, worsening for the last few days. He acutely decompensated in the emergency department and was intubated emergently. He remains hypoxic with severe metabolic acidosis with pH < 7.2. No additional information is obtainable from the patient. I evaluated the patient in the emergency department after he was emergently intubated. the remainder of the history is obtained from the medical record and his recent hospital admission a few days ago. ROS unobtainable. CT PE protocol is positive for multiple bilateral PEs, as well as SVC and IVC thrombus. CT abdomen/pelvis is positive for large abdominal necrotic mass as well as large amount of ascites, peritoneal carcinomatosis. Lactate is 10. pH is 7.1. Elevated AST/ALT, INR 2.3, WBC 41k. I had a long discussion with his regarding his care. I explained that all of his organs were failing as a result of a combination of his very aggressive cancer and his bilateral pulmonary emboli. He remains in shock and in distress. I explained that likely he would from his multi-organ failure. She expressed that she wished the patient to be DNR: "if his heart stops, let him go." She did want us to continue aggressive measures overnight and see if any organ function improved. She expressed understanding of the gravity of his illness. CBC/BMP: 06/29/17 1850 06/29/17 1850 Significant Findings Laboratory Tests Test 06/29/17 18:50 06/29/17 19:02 06/29/17 19:20 06/29/17 19:28 White Blood Count 41.4 TH/MM3 (4.0-11.0) Red Blood Count 3.30 MIL/MM3 (4.50-5.90) Hemoglobin 9.9 GM/DL (13.0-17.0) Hematocrit 33.0 % (39.0-51.0) Mean Corpuscular Volume 100.1 FL (80.0-100.0) Mean Corpuscular Hemoglobin Concent 29.9 % (32.0-36.0) Neutrophils (%) (Auto) 84.1 % (16.0-70.0) Lymphocytes (%) (Auto) 5.6 % (9.0-44.0) Monocytes (%) (Auto) 8.4 % (0.0-8.0) Neutrophils # (Auto) 34.8 TH/MM3 (1.8-7.7) Monocytes # (Auto) 3.5 TH/MM3 (0-0.9) Eosinophils # (Auto) 0.7 TH/MM3 (0-0.4) Band Neutrophils % 18 % (0-6) Lymphocytes % 4 % (9-44) Neutrophils # (Manual) 38.1 TH/MM3 (1.8-7.7) Metamyelocytes 4 % (0-1) Myelocytes 4 % (0-0) Nucleated Red Blood Cells 4 /100 WBC (0-0) Platelet Estimate LOW (NORMAL) Polychromasia 5.4 % (0.0-1.9) Prothrombin Time 23.5 SEC (9.8-11.6) Activated Partial Thromboplast Time 30.8 SEC (24.3-30.1) Blood Urea Nitrogen 60 MG/DL (7-18) Creatinine 2.54 MG/DL (0.60-1.30) Total Protein 4.7 GM/DL (6.4-8.2) Albumin 1.6 GM/DL (3.4-5.0) Calcium Level 8.1 MG/DL (8.5-10.1) Alkaline Phosphatase 169 U/L (45-117) Aspartate Amino Transf (AST/SGOT) 84 U/L (15-37) Potassium Level 5.3 MEQ/L (3.5-5.1) Carbon Dioxide Level 14.0 MEQ/L (21.0-32.0) Anion Gap 17 MEQ/L (5-15) Estimat Glomerular Filtration Rate 26 ML/MIN (>89) B-Type Natriuretic Peptide 227 PG/ML (0-100) Blood Gas HCO3 13 mmol/L (22-26) Blood Gas Base Excess -14.8 mmol/L (-2-2) Arterial Blood pH 7.11 (7.380-7.420) Arterial Blood Partial Pressure CO2 43 mmHg (38-42) Arterial Blood Partial Pressure O2 146 mmHG (61-120) Blood Gas Hemoglobin 9.3 G/DL (12.0-16.0) Lactic Acid Level 10.9 mmol/L (0.4-2.0) Test 06/29/17 19:40 06/29/17 23:12 Urine Ketones TRACE mg/dL (NEG) Urine Bilirubin SMALL (NEG) Urine Bacteria FEW /hpf (NONE) Urine Mucus FEW /lpf (OCC) Urine Sperm OCC (NONE) Lactic Acid Level 8.4 mmol/L (0.4-2.0) Imaging Last Impressions CT Angiography 06/29/17 193 Signed Impressions: Service Date/Time: Thursday, June 29, 2017 19:44 - CONCLUSION: 1. Multiple pulmonary emboli identified bilaterally at the segmental and subsegmental branch level 2. Moderate sized left pleural effusion. 3. Bilateral pulmonary atelectasis and multiple small nodular densities bilaterally suspicious for pulmonary metastatic disease. The nodules are too small for biopsy. 4. Large central upper abdominal mass centered in the region of the pancreas. Moderate amount of ascites. 5. Multiple enlarged prevascular lymph nodes. Multiple enlarged lymph nodes also seen anterior to the heart measuring up to 2.4 cm in diameter. 6. Possible 2 cm thrombus or mass at the apex of the left ventricle but a similar finding is seen on the prior CT of 2016. Willie Ray MD Head CT 06/29/17 1858 Signed Impressions: Service Date/Time: Thursday, June 29, 2017 19:38 - CONCLUSION: No acute intracranial findings. 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 Willie Ray MD Chest X-Ray 06/29/17 1820 Signed Impressions: Service Date/Time: Thursday, June 29, 2017 19:28 - CONCLUSION: 1. Endotracheal tube and nasogastric tube now in place. 2. New small left pleural effusion along with hazy left hemithorax opacity likely representing layering component of pleural effusion. 3. Increased patchy bilateral lower lung atelectasis versus consolidation left greater than right. Willie Ray MD Abdomen/Pelvis CT 06/29/17 0000 Signed Impressions: Service Date/Time: Thursday, June 29, 2017 19:44 - CONCLUSION: 1. Large 12 cm central abdominal mass in the pancreatic bed. 2. Large amount of ascites with omental caking indicating intraperitoneal spread of malignancy. 3. 1.7 cm filling defect in the IVC indicating thrombus. There is also a small clot seen in the SVC to be catheter tip. 4. Retroperitoneal lymphadenopathy. 5. Postsurgical findings of proximal small bowel and gas in the biliary tree likely postsurgical. Willie Ray MD ADDENDUM: Comparison is made to outside PET/CT study of 06/19/2017. No gross change in the size of large pancreatic mass or intraperitoneal metastasis. There has been an increase in the amount of ascites. The prominent left pleural effusion is new. Willie Ray MD Hospital Course The patient continued to decline into multiorgan system failure and refractory shock despite aggressive therapy. he never recovered any function. He was made DNR and with his fiancee at bedside at 03:36am. Jose Roasles MD Jun 30, 2017 04:12
--- NOTE | 2017-06-30 04:12 | DEATH SUM ---
Pronouncement Date Pronounced : Jun 30, 2017 Time Of : 03:36 Pronouncement Called to pronounce of patient. Identified patient as Torey Thompson with wrist band MR# [id number]. Patient with no cardiac activity in 2 separate leads and no palpable/auscible cardiac activity. Patient with no spontaneous respirations, no corneal reflex or response to painful stimuli. Pupils fixed and dilated. Preliminary Cause of : Cardiac arrest Jose Rosales MD Jun 30, 2017 04:12
--- NOTE | 2017-06-30 07:32 | EKG ---
Date Performed: 06/29/2017 Time Performed: 18:24:20 PTAGE: 56 years EKG: SINUS TACHYCARDIA, LOW QRS VOLTAGE, INFERIOR MYOCARDIAL INFARCTION, ANTEROSEPTAL MYOCARDIAL INFARCTION, ABNORMAL ECG NO PREVIOUS TRACING DOCTOR: Jovan Worley Interpretating Date/Time 06/30/2017 07:30:25
== END 2017-06-30 03:36 | disposition expired | DRG 871 ==
LOC: NEPC 18:01 → NEDA 19:00 → HIMW 20:05
PROVIDERS: ADMIT Internal Medicine Critical Care Medicine; ATTEND Internal Medicine Critical Care Medicine
PROC: 0BH17EZ Insertion of Endotracheal Airway into Trachea, Via Natural or Artificial Opening (ICD-10-PCS; principal; 2017-06-29)
PROC: 5A1935Z Respiratory Ventilation, Less than 24 Consecutive Hours (ICD-10-PCS; 2017-06-29)
DX: A41.9 Sepsis, unspecified organism (principal); J96.01 Acute respiratory failure with hypoxia; I26.99 Other pulmonary embolism without acute cor pulmonale; I82.220 Acute embolism and thrombosis of inferior vena cava; R57.0 Cardiogenic shock; R18.8 Other ascites; R65.21 Severe sepsis with septic shock; C78.00 Secondary malignant neoplasm of unspecified lung; E43 Unspecified severe protein-calorie malnutrition; E87.2 Acidosis; N17.9 Acute kidney failure, unspecified; C25.9 Malignant neoplasm of pancreas, unspecified; C78.6 Secondary malignant neoplasm of retroperitoneum and peritoneum; J98.11 Atelectasis; K31.84 Gastroparesis; I25.2 Old myocardial infarction; I10 Essential (primary) hypertension; E03.9 Hypothyroidism, unspecified; K76.89 Other specified diseases of liver; M19.90 Unspecified osteoarthritis, unspecified site; R73.9 Hyperglycemia, unspecified; E78.00 Pure hypercholesterolemia, unspecified; I25.10 Atherosclerotic heart disease of native coronary artery without angina pectoris; F31.9 Bipolar disorder, unspecified; F41.9 Anxiety disorder, unspecified; Z66 Do not resuscitate; Z68.24 Body mass index [BMI] 24.0-24.9, adult; Z72.0 Tobacco use; Z79.01 Long term (current) use of anticoagulants; Z88.5 Allergy status to narcotic agent; Z95.5 Presence of coronary angioplasty implant and graft
CPT/HCPCS: 31500; 36600; 43753; 70450; 71010; 71275; 74177; 80053; 81001; 82550; 82552; 82805; 82948; 83605; 83880; 84484; 85007; 85027; 85610; 85730; 86403; 87040; 87070; 87086; 87205; 87641; 93005; 94002; 94664; 96374; J0330; J1644; J2543; J3010; J3370; J7030; J7040; Q9967